=== PATIENT | female | born 1935 | race Caucasian/White ===

== ENCOUNTER → 2017-12-16 13:00 | Outpatient (CLI) | payer MEDICARE, BC, SELFPAY | PROVIDERS: Family Provider Family Medicine; PCP Family Medicine | DX: Z23 Encounter for immunization (principal) | CPT/HCPCS: 90471; 90662 ==

== ENCOUNTER → 2018-01-14 09:23 | Outpatient (CLI) | payer MEDICARE, BC, SELFPAY | PROVIDERS: PCP Family Medicine; Visit Provider Family Medicine | DX: N28.9 Disorder of kidney and ureter, unspecified (principal) ==

== ENCOUNTER → 2018-01-15 08:10 | Outpatient (CLI) | payer MEDICARE, BC, SELFPAY ==
[2018-01-15 10:11] LABS: Alanine Aminotransferase 31 IU/L (9-52); Albumin 4.3 g/dL (3.5-5.0); Albumin Globulin Ratio 1.6 (1.0-2.8); Alkaline Phosphatase 77 U/L (38-126); Aspartate Aminotransferase 32 IU/L (14-36); BUN Creatinine Ratio 21.1 (6-22); Bilirubin Total 0.7 mg/dL (0.2-1.3); Blood Urea Nitrogen 19 mg/dL (7-17); Calcium 9.2 mg/dL (8.4-10.2); Carbon Dioxide 29 mmol/L (22-32); Chloride 104 mmol/L (98-107); Cholesterol 157 mg/dL (140-199); Estimated Glomerular Filt Rate > 60.0 mL/min (>60); Globulin 2.7 g/dL (1.7-4.1); Glucose 93 mg/dL (80-110); HDL Cholesterol 46 mg/dL (40-60); HEMOLYSIS < 15 (0-50); LDL Cholesterol Calculated 95 mg/dL (<100); Sodium 143 mmol/L (137-145); Triglycerides 82 mg/dL (35-150)
== END ==
PROVIDERS: PCP Family Medicine; Visit Provider Family Medicine
DX: N28.9 Disorder of kidney and ureter, unspecified (principal)
CPT/HCPCS: 36415; 80053; 80061

== ENCOUNTER → 2018-03-02 09:07 | Outpatient (CLI) | payer MEDICARE, BC, SELFPAY ==
--- NOTE | 2018-03-02 | DI.MG.S_ITS ---
BILATERAL DIGITAL SCREENING MAMMOGRAM 3D/2D WITH CAD: 03/02/2018 CLINICAL: Routine screening. Family history of breast cancer. Comparison is made to exams dated: 12/28/2016 mammogram, 09/03/2015 mammogram, and 08/21/2014 mammogram - [facility]. There are scattered fibroglandular elements in both breasts. Current study was also evaluated with a Computer Aided Detection (CAD) system. There are benign vascular calcifications in both breasts. No significant masses, calcifications, or other findings are seen in either breast. There has been no significant interval change. IMPRESSION: There is no mammographic evidence of malignancy. A 1 year screening mammogram is recommended. This exam was interpreted at Station ID: [id number]. NOTE: For mammograms, a report in lay terms will be sent to the patient. Approximately 15% of breast malignancies will not be visualized mammographically. In the management of a palpable breast mass, a negative mammogram must not discourage biopsy of a clinically suspicious lesion. Electronically Signed By: Jayne palomino/michaelle:03/02/2018 09:33:48 letter sent: Normal Exam ACR BI-RADS Category 2: Benign Finding(s) 3342F
== END ==
PROVIDERS: PCP Family Medicine; Visit Provider Family Medicine
DX: Z12.31 Encounter for screening mammogram for malignant neoplasm of breast (principal); Z80.3 Family history of malignant neoplasm of breast
CPT/HCPCS: 77063; 77067

== ENCOUNTER → 2018-07-21 07:17 | Outpatient (CLI) | payer MEDICARE, BC, SELFPAY ==
--- NOTE | 2018-07-21 07:19 | DI.RAD.S_ITS ---
PROCEDURE: XR LUMBAR SPINE 2-3V INDICATIONS: Lumbar strain TECHNIQUE: 3 views of the lumbar spine were acquired. COMPARISON: [facility], , L-SPINE 2-3 VIEWS, 10/18/2014, 14:35. FINDINGS: Bones: 5 [id number] vertebrae are present. There is mild levoscoliotic bony alignment centered at L3. No vertebral body compression fractures. No suspicious bony lesions. The degenerative disc disease and facet osteoarthritis is moderately severe from L2 inferiorly, with anterolisthesis grade 1 of L4 again seen on L5. Soft tissues: Overlying bowel gas pattern is normal. No suspicious soft tissue calcifications. 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 This has not appreciably worsened from October 2014, however. Again noted is slight convex leftward scoliosis centered at L3. Dictated by: George Greenberg M.D. on 07/21/2018 at 9:22 Approved by: George Greenberg M.D. on 07/21/2018 at 9:24
[2018-07-21 08:11] LABS: Add Manual Diff / Slide Review NO; Basophils Absolute Auto 100 /uL (0-100); Basophils Percent Auto 1.2 % (0-2); Eosinophils Absolute Auto 300 /uL (0-450); Eosinophils Percent Auto 5.2 % (2-4); Hematocrit 37.3 % (36-46); Hemoglobin 12.1 g/dL (12.0-16.0); Lymphocytes Absolute Auto 1600 /uL (1100-4500); Lymphocytes Percent Auto 31.2 % (25-40); Mean Corpuscular HGB Conc 32.6 % (30-36); Mean Corpuscular Hemoglobin 32.9 PG (26-34); Monocytes Absolute Auto 500 /uL (0-900); Monocytes Percent Auto 10.6 % (3-14); Neutrophils Absolute Auto 2600 /uL (1500-7000); Neutrophils Percent Auto 51.8 % (50-75); Platelet Count 433 X10^3/uL (150-400); Red Blood Cell Count 3.69 X10^6/uL (4.0-5.2)
[2018-07-21 08:15] LABS: Appearance Urine UA CLEAR; Bilirubin Urine UA NEGATIVE (NEGATIVE); Color Urine UA YELLOW; Glucose Urine UA NEGATIVE (Negative); Ketones Urine UA NEGATIVE (NEGATIVE); Leukocyte Esterase Urine UA 1+ (NEGATIVE); Nitrite Urine UA NEGATIVE (Negative); Occult Blood Urine UA NEGATIVE (Negative); Protein Urine UA NEGATIVE (Negative); Specific Gravity Urine UA 1.025 (1.000-1.035); Urobilinogen Urine UA 0.2 E.U./dL (0.2)
[2018-07-21 08:16] LABS: RBC Urine None Seen (0-5/HPF)
[2018-07-21 08:20] LABS: Bacteria Urine Few (2-10); Culture Indicated Urine Cult Not Indicated; Squamous Epithelial Cell Urine 5-10 /HPF (0-5/HPF); WBC Urine 1-5/HPF (0-5/HPF)
[2018-07-21 08:28] LABS: Alanine Aminotransferase 20 IU/L (9-52); Albumin 4.6 g/dL (3.5-5.0); Albumin Globulin Ratio 1.9 (1.0-2.8); Alkaline Phosphatase 68 U/L (38-126); Aspartate Aminotransferase 27 IU/L (14-36); Bilirubin Total 0.6 mg/dL (0.2-1.3); Blood Urea Nitrogen 21 mg/dL (7-17); Calcium 9.1 mg/dL (8.4-10.2); Carbon Dioxide 25 mmol/L (22-32); Chloride 105 mmol/L (98-107); Cholesterol 165 mg/dL (140-199); Estimated Glomerular Filt Rate 53.2 mL/min (>60); Globulin 2.4 g/dL (1.7-4.1); Glucose 97 mg/dL (80-110); HDL Cholesterol 47 mg/dL (40-60); HEMOLYSIS < 15 (0-50); LDL Cholesterol Calculated 100 mg/dL (<100); Potassium 3.9 mmol/L (3.4-5.1); Sodium 141 mmol/L (137-145); Triglycerides 92 mg/dL (35-150)
[2018-07-21 09:55] LABS: Thyroid Stimulating Hormone 0.23 uIU/mL (0.47-4.68)
== END ==
PROVIDERS: PCP Family Medicine; Visit Provider Family Medicine
DX: S39.012A Strain of muscle, fascia and tendon of lower back, initial encounter (principal); M51.36 Other intervertebral disc degeneration, lumbar region; M51.37 Other intervertebral disc degeneration, lumbosacral region; M47.816 Spondylosis without myelopathy or radiculopathy, lumbar region; M47.817 Spondylosis without myelopathy or radiculopathy, lumbosacral region; M43.16 Spondylolisthesis, lumbar region; M41.86 Other forms of scoliosis, lumbar region; E78.5 Hyperlipidemia, unspecified; N18.9 Chronic kidney disease, unspecified; Z51.81 Encounter for therapeutic drug level monitoring
CPT/HCPCS: 36415; 72100; 80053; 80061; 81003; 81015; 84443; 85025

== ENCOUNTER 2018-11-04 13:30 | Outpatient (RCR) | payer MEDICARE, BC, SELFPAY ==
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
--- NOTE | 2018-10-21 15:32 | PT.OPPOC ---
Current Diagnoses Trochanteric bursitis, right hip (10/21/18) Strain of muscle, fascia and tendon of lower back, initial encounter (10/21/18) Provider Visit Care Team Role Provider Type Sally Ruffin DO Attending Provider Physician Primary Care Provider Specialty: Family Practice Address: [address] [place] [address], [id number] Email: [email or web address] Plan Of Care PT-OP-T Assessment and Plan Start: 08/23/18 17:42 Freq: Status: Active Protocol: Document 10/21/18 08:18 LRN (Rec: 10/21/18 09:04 LRN [id number]) Physical Therapy Assessment Goals Four Impairment R LBP hindering reciprocal gait pattern with stair ambulation. Dump Truck Driver Goal (LTG) Pt will be able to ambulate stairs with a reciprocal gait pattern without pain. LTG Duration 12/02/18 (10/21/18: Has had a few days without pain and normal gait) Three Impairment R LBP limiting gait tolerance to short distances. Dump Truck Driver Goal (LTG) Pt will be able to ambulate for long distances (shopping) without onset of R LBP. LTG Duration 12/02/18 Two Impairment R LBP on standing. Dump Truck Driver Goal (LTG) Pt will be able to perform sit to stand without onset of R LBP. LTG Duration 12/02/18 (10/21/18: LBP today resolved post therapy) One Impairment Lacks appropriate self care program. Dump Truck Driver Goal (LTG) Pt will be independent with a self care HEP. LTG Duration 12/02/18 Progressing. Assessment Summary Assessment Much reduced active trigger points at the R ASIS (skin is sensitive to touch). Resolution of pain with pelvic /lumbar normalization of positioning. Pt is having primarily R low back pain that has become recently, intermittent in nature. As she gains greater core stability her back pain is becoming less. 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 Physical Therapy Plan Frequency and Duration Frequency of Treatment 2x/Week Plan of Care Start Date 10/21/18 Plan of Care End Date 12/02/18 Therapeutic Interventions Therapeutic Interventions Gait Training Home Exercise Program Joint Mobilizations Manual Therapy Neuromuscular Re-education Patient/Caregiver Education Self-Care/Home Management Soft Tissue Mobilization Therapeutic Exercises Modalities Cold Pack/Ice Massage Electric Stimulation Hot Packs Ultrasound Next Visit Focus/Plan Next Note Type Treatment Note Next Visit Plan Check R Iliacus, psoas for trP 's and check progress towards goal. Cont manual therapy to release hip AD's/medial hamstrings. Lumbar manual traction to relieve low back & lateral hip pain as needed. Progress Core stabilization and hip strength. Use towel roll in lumbar region in supine with ex's & CP/IFES ( not in areas of basal cell carcinoma of face) if needed. 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 Pt will seek therapy for bilateral hips at the next MD appt. Plan of Care Dates Plan of Care Start Date 10/21/18 Plan of Care End Date 12/02/18 Please Sign and Return: I have reviewed this Plan of Care and certify that the skilled therapy services above are required to meet the patient?s needs. Physician Signature Date Printed Name and Credentials Clinical Instructor Signature Printed Name and Credentials
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
== END 2018-11-09 09:38 | disposition home or self-care (01) ==
LOC: PHYS 13:30
PROVIDERS: PCP Family Medicine; Visit Provider Family Medicine
DX: S39.012A Strain of muscle, fascia and tendon of lower back, initial encounter (principal); M70.61 Trochanteric bursitis, right hip
CPT/HCPCS: 97014; 97032; 97110; 97140; 97162; 97535; G0283

== ENCOUNTER → 2019-01-10 15:17 | Outpatient (CLI) | payer MEDICARE, BC, SELFPAY | PROVIDERS: PCP Family Medicine | DX: Z23 Encounter for immunization (principal) | CPT/HCPCS: 90471; 90662 ==

== ENCOUNTER → 2019-01-11 07:46 | Outpatient (CLI) | payer MEDICARE, BC, SELFPAY ==
[2019-01-11 08:35] LABS: Alanine Aminotransferase 21 IU/L (9-52); Albumin 4.6 g/dL (3.5-5.0); Albumin Globulin Ratio 1.6 (1.0-2.8); Alkaline Phosphatase 71 U/L (38-126); Aspartate Aminotransferase 32 IU/L (14-36); Bilirubin Total 0.9 mg/dL (0.2-1.3); Blood Urea Nitrogen 18 mg/dL (7-17); Calcium 9.6 mg/dL (8.4-10.2); Carbon Dioxide 27 mmol/L (22-32); Chloride 103 mmol/L (98-107); Cholesterol 165 mg/dL (140-199); Estimated Glomerular Filt Rate 59.9 mL/min (>60); Globulin 2.8 g/dL (1.7-4.1); Glucose 105 mg/dL (80-110); HDL Cholesterol 50 mg/dL (40-60); HEMOLYSIS < 15 (0-50); LDL Cholesterol Calculated 94 mg/dL (<100); Potassium 4.6 mmol/L (3.4-5.1); Sodium 141 mmol/L (137-145); Total Protein 7.4 g/dL (6.3-8.2); Triglycerides 104 mg/dL (35-150)
[2019-01-11 08:38] LABS: Add Manual Diff / Slide Review NO; Basophils Absolute Auto 0 /uL (0-100); Basophils Percent Auto 0.7 % (0-2); Eosinophils Absolute Auto 300 /uL (0-450); Eosinophils Percent Auto 4.2 % (2-4); Hematocrit 36.5 % (36-46); Lymphocytes Absolute Auto 1400 /uL (1100-4500); Lymphocytes Percent Auto 20.2 % (25-40); Mean Corpuscular Hemoglobin 33.4 PG (26-34); Mean Corpuscular Volume 101.3 fL (80-100); Monocytes Absolute Auto 600 /uL (0-900); Monocytes Percent Auto 8.4 % (3-14); Neutrophils Absolute Auto 4700 /uL (1500-7000); Neutrophils Percent Auto 66.5 % (50-75); Platelet Count 400 X10^3/uL (150-400); White Blood Cell Count 7.1 X10^3/uL (4.5-11.0)
[2019-01-11 09:07] LABS: Free T3, Triiodothyronine Free 3.17 pg/mL (2.77-5.27); Free T4, Direct Thyroxine 1.36 ng/dL (0.78-2.19)
[2019-01-11 09:22] LABS: Thyroid Stimulating Hormone 0.22 uIU/mL (0.47-4.68)
== END ==
PROVIDERS: PCP Family Medicine; Visit Provider Family Medicine
DX: E78.5 Hyperlipidemia, unspecified (principal); N18.9 Chronic kidney disease, unspecified
CPT/HCPCS: 36415; 80053; 80061; 84439; 84443; 84481; 85025

== ENCOUNTER → 2019-04-12 08:02 | Outpatient (CLI) | payer MEDICARE, BC, SELFPAY ==
--- NOTE | 2019-04-12 | DI.MG.S_ITS ---
BILATERAL DIGITAL SCREENING MAMMOGRAM 3D/2D WITH CAD: 04/12/2019 CLINICAL: Routine screening. Family history of breast cancer. Comparison is made to exams dated: 12/28/2016 mammogram and 09/03/2015 mammogram - [facility]. There are scattered fibroglandular elements in both breasts. Current study was also evaluated with a Computer Aided Detection (CAD) system. There are benign vascular calcifications in both breasts. No significant masses, calcifications, or other findings are seen in either breast. There has been no significant interval change. IMPRESSION: There is no mammographic evidence of malignancy. A 1 year screening mammogram is recommended. This exam was interpreted at Station ID: [id number]. NOTE: For mammograms, a report in lay terms will be sent to the patient. Approximately 15% of breast malignancies will not be visualized mammographically. In the management of a palpable breast mass, a negative mammogram must not discourage biopsy of a clinically suspicious lesion. Electronically Signed By: Adrianen rivers/michaelle:04/12/2019 09:15:43 letter sent: Normal Exam ACR BI-RADS Category 2: Benign Finding(s) 3342F
== END ==
PROVIDERS: PCP Family Medicine; Visit Provider Family Medicine
DX: Z12.31 Encounter for screening mammogram for malignant neoplasm of breast (principal); Z80.3 Family history of malignant neoplasm of breast
CPT/HCPCS: 77063; 77067

== ENCOUNTER → 2019-09-21 13:59 | Outpatient (CLI) | payer MEDICARE, BC, SELFPAY | PROVIDERS: PCP Student in an Organized Health Care Education/Training Program; Referring Provider Student in an Organized Health Care Education/Training Program; Visit Provider Student in an Organized Health Care Education/Training Program | DX: Z13.820 Encounter for screening for osteoporosis (principal); Z78.0 Asymptomatic menopausal state; Z91.89 Other specified personal risk factors, not elsewhere classified | CPT/HCPCS: 77080 ==

== ENCOUNTER → 2019-12-26 07:43 | Outpatient (CLI) | payer MEDICARE, BC, SELFPAY ==
[2019-12-26 09:15] LABS: BUN Creatinine Ratio 24.1 (6-22); Blood Urea Nitrogen 20 mg/dL (7-17); Calcium 9.7 mg/dL (8.4-10.2); Carbon Dioxide 32 mmol/L (22-32); Chloride 102 mmol/L (98-107); Cholesterol 204 mg/dL (140-199); Estimated Glomerular Filt Rate > 60.0 mL/min (>60); Glucose 97 mg/dL (80-110); HDL Cholesterol 58 mg/dL (40-60); HEMOLYSIS < 15 (0-50); LDL Cholesterol Calculated 128 mg/dL (<100); Sodium 139 mmol/L (137-145); Triglycerides 90 mg/dL (35-150)
[2019-12-26 09:18] LABS: Potassium 5.4 mmol/L (3.4-5.1)
[2019-12-26 09:46] LABS: TSH w/ Reflex to FT4 3.34 uIU/mL (0.47-4.68)
== END ==
PROVIDERS: PCP Student in an Organized Health Care Education/Training Program; Referring Provider Student in an Organized Health Care Education/Training Program; Visit Provider Student in an Organized Health Care Education/Training Program
DX: N18.9 Chronic kidney disease, unspecified (principal); E05.90 Thyrotoxicosis, unspecified without thyrotoxic crisis or storm; E78.5 Hyperlipidemia, unspecified; N39.0 Urinary tract infection, site not specified
CPT/HCPCS: 36415; 80048; 80061; 84443

== ENCOUNTER → 2020-05-02 14:14 | Outpatient (CLI) | payer MEDICARE, BC, SELFPAY ==
[2020-05-02] MEDS: COVID-19 VACC #1, MRNA(MOD) 100 MCG/0.5 ML VIAL IM (14:18)
== END ==
PROVIDERS: PCP Student in an Organized Health Care Education/Training Program; Visit Provider Internal Medicine
DX: Z23 Encounter for immunization (principal)
CPT/HCPCS: 0011A; 91301

== ENCOUNTER → 2020-05-30 13:45 | Outpatient (CLI) | payer MEDICARE, BC, SELFPAY ==
[2020-05-30] MEDS: COVID-19 VACC #2, MRNA(MOD) 100 MCG/0.5 ML VIAL IM (13:49)
== END ==
PROVIDERS: PCP Student in an Organized Health Care Education/Training Program; Visit Provider Internal Medicine
DX: Z23 Encounter for immunization (principal)
CPT/HCPCS: 0012A; 91301

== ENCOUNTER → 2021-04-14 08:04 | Outpatient (CLI) | payer MEDICARE, BC, SELFPAY ==
--- NOTE | 2021-04-14 08:06 | DI.MG.S_ITS ---
BILATERAL DIGITAL SCREENING MAMMOGRAM 3D/2D WITH CAD: 04/14/2021 CLINICAL: Routine screening. Family history of breast cancer. Comparison is made to exams dated: 04/12/2019 mammogram, 03/02/2018 mammogram, 12/28/2016 mammogram, 09/03/2015 mammogram, and 08/21/2014 mammogram - [facility]. There are scattered fibroglandular elements in both breasts. Current study was also evaluated with a Computer Aided Detection (CAD) system. There are benign vascular calcifications in both breasts. No significant masses, calcifications, or other findings are seen in either breast. There has been no significant interval change. IMPRESSION: BENIGN There is no mammographic evidence of malignancy. A 1 year screening mammogram is recommended. This exam was interpreted at Station ID: [id number]. NOTE: For mammograms, a report in lay terms will be sent to the patient. Approximately 15% of breast malignancies will not be visualized mammographically. In the management of a palpable breast mass, a negative mammogram must not discourage biopsy of a clinically suspicious lesion. Electronically Signed By: Silvio plasencia/michaelle:04/14/2021 11:00:08 letter sent: Normal Exam ACR BI-RADS Category 2: Benign Finding(s) 3342F
== END ==
PROVIDERS: PCP Student in an Organized Health Care Education/Training Program; Referring Provider Student in an Organized Health Care Education/Training Program; Visit Provider Student in an Organized Health Care Education/Training Program
DX: Z12.31 Encounter for screening mammogram for malignant neoplasm of breast (principal); Z80.3 Family history of malignant neoplasm of breast
CPT/HCPCS: 77063; 77067

== ENCOUNTER → 2021-05-08 07:15 | Outpatient (CLI) | payer MEDICARE, BC, SELFPAY ==
[2021-05-08 09:06] LABS: BUN Creatinine Ratio 19.3 (6-22); Blood Urea Nitrogen 17 mg/dL (7-17); Calcium 9.6 mg/dL (8.4-10.2); Carbon Dioxide 29 mmol/L (22-32); Chloride 104 mmol/L (98-107); Estimated Glomerular Filt Rate > 60.0 mL/min (>60); Glucose 93 mg/dL (80-110); HEMOLYSIS < 15 (0-50); Potassium 4.8 mmol/L (3.4-5.1); Sodium 138 mmol/L (137-145)
== END ==
PROVIDERS: PCP Student in an Organized Health Care Education/Training Program; Referring Provider Student in an Organized Health Care Education/Training Program; Visit Provider Student in an Organized Health Care Education/Training Program
DX: N18.2 Chronic kidney disease, stage 2 (mild) (principal)
CPT/HCPCS: 36415; 80048

== ENCOUNTER → 2021-05-26 10:13 | Outpatient (CLI) | payer MEDICARE, BC, SELFPAY ==
--- NOTE | 2021-05-26 10:14 | DI.RAD.S_ITS ---
PROCEDURE: XR DEXA AXIAL SKELETON INDICATIONS: Osteoporosis screening COMPARISON: None. FINDINGS: This blank DEXA report has been sent in error by the PACS system. The correct and complete report will be forthcoming in 1-2 days. Thank you for your patience and understanding. Dictated by: Mariel Milner MD, PhD on 05/26/2021 at 15:38 Approved by: Mariel Milner MD, PhD on 05/26/2021 at 15:38
== END ==
PROVIDERS: PCP Student in an Organized Health Care Education/Training Program; Referring Provider Student in an Organized Health Care Education/Training Program; Visit Provider Student in an Organized Health Care Education/Training Program
DX: Z78.0 Asymptomatic menopausal state (principal)
CPT/HCPCS: 77080

== ENCOUNTER → 2022-06-24 08:26 | Outpatient (CLI) | payer MEDICARE, BC, SELFPAY ==
--- NOTE | 2022-06-24 | DI.MG.S_ITS ---
BILATERAL DIGITAL SCREENING MAMMOGRAM 3D/2D WITH CAD: 06/24/2022 CLINICAL: Routine screening. Family history of breast cancer. Comparison is made to exams dated: 04/14/2021 mammogram, 04/12/2019 mammogram, and 03/02/2018 mammogram - [facility]. There are scattered areas of fibroglandular density in both breasts (category b / 25%-50% glandular tissue). Current study was also evaluated with a Computer Aided Detection (CAD) system. There are benign vascular calcifications in both breasts. No significant masses, calcifications, or other findings are seen in either breast. There has been no significant interval change. IMPRESSION: BENIGN There is no mammographic evidence of malignancy. A 1 year screening mammogram is recommended. This exam was interpreted at Station ID: [id number]. NOTE: For mammograms, a report in lay terms will be sent to the patient. Approximately 15% of breast malignancies will not be visualized mammographically. In the management of a palpable breast mass, a negative mammogram must not discourage biopsy of a clinically suspicious lesion. Electronically Signed By: Cuauhtemoc lo/michaelle:06/25/2022 11:15:03 letter sent: Normal Exam ACR BI-RADS Category 2: Benign Finding(s) 3342F
== END ==
PROVIDERS: PCP Student in an Organized Health Care Education/Training Program; Referring Provider Student in an Organized Health Care Education/Training Program; Visit Provider Student in an Organized Health Care Education/Training Program
DX: Z12.31 Encounter for screening mammogram for malignant neoplasm of breast (principal); Z80.3 Family history of malignant neoplasm of breast
CPT/HCPCS: 77063; 77067

== ENCOUNTER 2022-08-05 14:48 | Observation (INO) | payer MEDICARE, BC, SELFPAY ==
[2022-08-05] VITALS (13 sets, daily range): BP systolic 168–217; BP diastolic 67–92; PULSE 64–74; RESP 13–27; TEMP 36.1–36.4; O2SAT 96–99; BMI 26.5; BMI 27.3
--- NOTE | 2022-08-05 14:50 | DI.RAD.S_ITS ---
PROCEDURE: XR CHEST 1V INDICATIONS: chest pain TECHNIQUE: One view of the chest was acquired. COMPARISON: [facility], , XR CXR 2 VIEW, 04/16/2005, 11:37. FINDINGS: Surgical changes and devices: None. Lungs and pleura: Lungs are clear. No pleural effusions or pneumothorax. Mediastinum: Mediastinal contours appear normal. Heart size is normal. Bones and chest wall: No suspicious bony lesions. Overlying soft tissues appear unremarkable. IMPRESSION: No acute cardiopulmonary abnormality. Dictated by: Cuauhtemoc Estrada M.D. on 08/05/2022 at 15:44 Approved by: Cuauhtemoc Estrada M.D. on 08/05/2022 at 15:48
[2022-08-05 15:22] LABS: Add Manual Diff / Slide Review NO; Basophils Absolute Auto 100 /uL (0-100); Eosinophils Absolute Auto 200 /uL (0-450); Eosinophils Percent Auto 2.7 % (2-4); Hematocrit 33.1 % (36-46); Hemoglobin 11.3 g/dL (12.0-16.0); Lymphocytes Absolute Auto 2400 /uL (1100-4500); Lymphocytes Percent Auto 32.9 % (25-40); Mean Corpuscular HGB Conc 34.1 % (30-36); Mean Corpuscular Hemoglobin 34.9 PG (26-34); Mean Corpuscular Volume 102.3 fL (80-100); Monocytes Absolute Auto 700 /uL (0-900); Monocytes Percent Auto 8.9 % (3-14); Neutrophils Absolute Auto 4000 /uL (1500-7000); Neutrophils Percent Auto 53.5 % (50-75); Platelet Count 358 X10^3/uL (150-400); Red Blood Cell Count 3.24 X10^6/uL (4.0-5.2); Red Cell Distribution Width 21.4 % (11.6-14.8); White Blood Cell Count 7.4 X10^3/uL (4.5-11.0)
[2022-08-05 15:23] LABS: Prothrombin Time 11.6 SECONDS (10.1-12.7)
[2022-08-05 15:26] LABS: PTT Partial Thromboplastin Tim 35 SECONDS (26-36)
[2022-08-05 15:29] LABS: Alanine Aminotransferase 19 IU/L (<35); Albumin 4.6 g/dL (3.5-5.0); Albumin Globulin Ratio 1.7 (1.0-2.8); Alkaline Phosphatase 79 U/L (38-126); Aspartate Aminotransferase 30 IU/L (14-36); BUN Creatinine Ratio 20.6 (6-22); Blood Urea Nitrogen 20 mg/dL (7-17); Calcium 8.7 mg/dL (8.4-10.2); Carbon Dioxide 26 mmol/L (22-32); Chloride 103 mmol/L (98-107); Creatine Kinase 84 U/L (30-135); Estimated Glomerular Filt Rate 57 mL/min (>60); Globulin 2.7 g/dL (1.7-4.1); Glucose 97 mg/dL (80-110); HEMOLYSIS < 15 (0-50); Lipase 51 U/L (23-300); Sodium 138 mmol/L (137-145); Total Protein 7.3 g/dL (6.3-8.2)
[2022-08-05] MEDS: ASPIRIN 81 MG CHEW TAB 324 MG PO (15:29)
[2022-08-05 15:41] LABS: Troponin I < 0.012 ng/mL (0.01-0.034)
[2022-08-05 15:47] LABS: Macrocytosis 1+
[2022-08-05 15:50] LABS: Schistocytes 1+
[2022-08-05 15:53] LABS: Anisocytosis 2+
--- NOTE | 2022-08-05 16:11 | ED.CHESTPAIN ---
HPI - Chest Pain General Chief Complaint: Chest Pain Stated Complaint: Chest pain Time Seen by Provider: 08/05/22 15:26 Source: patient Mode of arrival: Ambulatory Limitations: no limitations History of Present Illness HPI narrative: Age 6-year-old female patient with a history of lipidemia presents to the ER with chest pain. She is experienced 4-5 episodes of brief chest pain over the past month, generally arrest. She was experiencing pain in left anterior chest, general resolving within about 10 minutes. There is no radiation of pain, no dyspnea. Today she experienced 3 separate episodes of chest pain. The 1st 2 episodes were about 10 minute duration and quickly resolved. The 3rd episode occurred when she was moderately active. This time the pain was more severe, and radiate across her chest. There is still no concerns or dyspnea or diaphoresis. Symptoms resolving upon arrival to the ER. She is asymptomatic at the time I saw her. Aspirin was given after arrival. She is no history of hypertension, diabetes, or known CAD. She is no history of arrhythmia. She denies recent illness. She is had no URI symptoms cough or congestion. Related Data Home Medications Medication Instructions Recorded Confirmed vitamin B complex (B 1 tab PO DAILY ##0 02/01/12 08/05/22 Complex-Vitamin B12 tablet) cholecalciferol (vitamin D3) 50 2,000 unit PO DAILY 07/20/18 08/05/22 mcg (2,000 unit) capsule d-mannose 500 mg capsule 500 mg PO DAILY 05/06/21 08/05/22 Previous Rx's Medication Instructions Recorded sulfamethoxazole 800 1 tab PO BID #10 tabs 05/28/22 mg-trimethoprim 160 mg tablet (Bactrim DS) Allergies Allergy/AdvReac Type Severity Reaction Status Date / Time codeine AdvReac Mild NAUSEA Verified 06/25/22 11:34 Review of Systems Constitutional Constitutional: Denies body ache(s), Denies fever(s) and Denies headache(s) Eyes Eyes: Denies change in vision ENT Ears, Nose, Mouth, and Throat: Denies vertigo, Denies dizziness, Denies headache(s), Denies sinus pain, Denies sinus pressure and Denies sore throat Cardiovascular Cardiovascular: Reports as per HPI, Denies syncope and Denies dyspnea Respiratory Respiratory: Denies chest congestion, Denies cough and Denies dyspnea Musculoskeletal Comments: No back pain, no lower extremity edema. Integumentary/Breasts Skin/Breast: Denies new lesions and Denies rash Neurologic Neurologic: Denies confusion, Denies vertigo, Denies dizziness, Denies syncope and Denies headache(s) Psychiatric Psychiatric: Denies confusion Hematologic/Lymphatic On Anticoagulants: No Patient History Medical History Actinic keratosis Allergic rhinitis Arthritis Basal cell carcinoma Colon polyps Hearing loss (04/2014) Hyperlipidemia Recurrent UTI (urinary tract infection) Subclinical hyperthyroidism Surgical History History of bilateral salpingo-oophorectomy (BSO) History of cataract removal with insertion of prosthetic lens History of tonsillectomy Hx of bladder repair surgery Status post cholecystectomy Status post hysterectomy Family History Father Bladder cancer CAD (coronary artery disease) Mother Dementia Stroke Hypertension Social History household members: spouse Smoking Status: Never smoker alcohol intake: never Smoking Status: Never smoker Substance Use Type: does not use Exam Initial Vital Signs Initial Vital Signs: Vital Signs Pulse Rate 74 08/05/22 14:54 Respiratory Rate 18 08/05/22 14:54 Blood Pressure 195/79 H 08/05/22 14:54 Pulse Oximetry 99 08/05/22 14:54 Oxygen Delivery Method Room Air 08/05/22 14:54 Const General: cooperative, healthy appearing and comfortable [facility] Head: normocephalic and atraumatic Face and sinus: normal facial exam Throat: posterior oropharynx normal Eyes General: Yes appearance normal, both eyes and all related structures Neck Neck: normal visual inspection, full ROM and No tender Chest Chest: normal inspection of the chest, No tenderness and other Resp Effort & Inspection: normal respiratory effort Auscultation: clear to auscultation bilaterally Cardio Palpation: normal PMI Rhythm: regular rhythm Heart Sounds: S1 normal, S2 normal and no murmurs GI Inspection: normal to inspection Back/Spine/Pelvis Back: normal to inspection and No CVA tenderness Skin General: no rashes or lesions noted Neuro General: patient alert, patient awake, patient oriented x3 and no focal motor deficits Extrem General: normal to inspection, no pedal edema and no calf tenderness Scores HEART Score Heart Score history: Moderately Suspicious Heart Score EKG: Normal Heart Score Age: > or = 65 years old Heart Score risk factors: 1-2 risk factors Heart Score troponin: < or = to normal limit Heart Score Total: 4 Course Course Course Narrative: Patient has a heart score of 4. I am concerned that her symptoms represent crescendo angina. I discussed the situation briefly with a PCM, Dr. Murdock. He felt that he could not assure a nuclear stress test within a week. Patient has a normal chest x-ray, her EKG is normal. Troponin has been normal x2. Her blood pressure is 160s, elevated. She is not on blood pressure medications. She is a history of hyperlipidemia, she is not currently taking medications. I contacted Dr. Reeves, hospitalist. He is agreed to admit the patient for ongoing evaluation of the chest discomfort. Orders Ordered: ED Orders 08/05/22 14:50 XR chest 1V Stat COVID19 -Nasal RAPID Stat 08/05/22 15:00 Complete Blood Count AUTO DIFF Stat Comprehensive Metabolic Panel Stat Lipase Stat Magnesium Stat PTT Partial Thromboplastin Liu Stat Prothrombin Time INR Stat Troponin & CK Cardiac Panel Stat 08/05/22 16:30 Trop I [Troponin I] Stat Acetaminophen (Acetaminophen 325 Mg Tablet) 650 mg PO Q6H PRN PRN Reason: Fever/Mild Pain (1-3) Aspirin (Aspirin Ec 81 Mg Tablet) 81 mg PO DAILY ALEXANDRA Atorvastatin Calcium (Atorvastatin 20 Mg Tablet) 40 mg PO BEDTIME ALEXANDRA Naloxone HCl (Naloxone 0.4 Mg/Ml Vial) 0.2 mg IV Q2MIN PRN PRN Reason: Opiate Reversal Ondansetron HCl (Ondansetron 4 Mg Odt) 4 mg PO Q8HR PRN PRN Reason: Nausea And Vomiting Discontinued Medications Aspirin (Aspirin 81 Mg Chew Tab) 324 mg PO NOW ONE Stop: 08/05/22 14:51 Last Admin: 08/05/22 15:29 Dose: 324 mg Documented By: PANCHO Vital Signs Vital signs: Vital Signs - 8 hr 08/05/22 14:54 08/05/22 14:57 08/05/22 14:58 Pulse Rate 74 72 70 Respiratory Rate 18 27 H 20 Blood Pressure 195/79 H Pulse Oximetry 99 97 98 Oxygen Delivery Method Room Air 08/05/22 14:58 08/05/22 15:00 08/05/22 15:30 Pulse Rate 71 68 Respiratory Rate 22 26 H Blood Pressure 187/78 H Pulse Oximetry 97 98 Oxygen Delivery Method 08/05/22 16:00 08/05/22 16:00 08/05/22 16:30 Pulse Rate 71 Respiratory Rate 13 Blood Pressure 199/92 H 208/87 H Pulse Oximetry 98 Oxygen Delivery Method 08/05/22 16:30 08/05/22 16:45 08/05/22 16:45 Pulse Rate 65 69 Respiratory Rate 20 18 Blood Pressure 217/91 H Pulse Oximetry 96 97 Oxygen Delivery Method 08/05/22 17:00 08/05/22 17:00 Pulse Rate 64 Respiratory Rate 16 Blood Pressure 194/84 H Pulse Oximetry 97 Oxygen Delivery Method Room Air MDM - Chest Pain Lab Data 08/05/22 15:00 08/05/22 15:00 Labs: Lab Results 08/05/22 08/05/22 08/05/22 Range/Units 14:50 15:00 15:00 WBC 7.4 (4.5-11.0) X10^3/uL RBC 3.24 L (4.0-5.2) X10^6/uL Hgb 11.3 L (12.0-16.0) g/dL Hct 33.1 L (36-46) % MCV 102.3 H (80-100) fL MCH 34.9 H (26-34) PG MCHC 34.1 (30-36) % RDW 21.4 H (11.6-14.8) % Plt Count 358 (150-400) X10^3/uL Neut % (Auto) 53.5 (50-75) % Lymph % (Auto) 32.9 (25-40) % [place] % (Auto) 8.9 (3-14) % Eos % (Auto) 2.7 (2-4) % Baso % (Auto) 2.0 (0-2) % Neut # (Auto) 4000 (4656-8327) /uL Lymph # (Auto) 2400 (7718-1464) /uL [place] # (Auto) 700 (0-900) /uL Eos # (Auto) 200 (0-450) /uL Baso # (Auto) 100 (0-100) /uL RBC Morphology See below Anisocytosis 2+ H Macrocytosis 1+ H Schistocytes 1+ H PT 11.6 (10.1-12.7) SECONDS INR 1.0 (0.9-1.3) APTT 35 (26-36) SECONDS Sodium (137-145) mmol/L Potassium (3.4-5.1) mmol/L Chloride (98-107) mmol/L Carbon Dioxide (22-32) mmol/L BUN (7-17) mg/dL Creatinine (0.52-1.04) mg/dL Estimated GFR (>60) mL/min BUN/Creatinine Ratio (6-22) Glucose (80-110) mg/dL Calcium (8.4-10.2) mg/dL Magnesium (1.6-2.3) mg/dL Total Bilirubin (0.2-1.3) mg/dL AST (14-36) IU/L ALT (<35) IU/L Alkaline Phosphatase (38-126) U/L Total Creatine Kinase (30-135) U/L CK-MB (CK-2) CK-MB (CK-2) Rel Index Troponin I (0.01-0.034) ng/mL Total Protein (6.3-8.2) g/dL Albumin (3.5-5.0) g/dL Globulin (1.7-4.1) g/dL Albumin/Globulin Ratio (1.0-2.8) Lipase (23-300) U/L Urine RBC (0-5/HPF) Urine WBC (0-5/HPF) Ur Squamous Epith Cells (0-5/HPF) Urine Bacteria (None) Ur Culture Indicated? SARS-CoV-2 (PCR) Negative (Negative) 08/05/22 08/05/22 08/05/22 Range/Units 15:00 16:30 17:15 WBC (4.5-11.0) X10^3/uL RBC (4.0-5.2) X10^6/uL Hgb (12.0-16.0) g/dL Hct (36-46) % MCV (80-100) fL MCH (26-34) PG MCHC (30-36) % RDW (11.6-14.8) % Plt Count (150-400) X10^3/uL Neut % (Auto) (50-75) % Lymph % (Auto) (25-40) % [place] % (Auto) (3-14) % Eos % (Auto) (2-4) % Baso % (Auto) (0-2) % Neut # (Auto) (6273-2308) /uL Lymph # (Auto) (7091-4300) /uL [place] # (Auto) (0-900) /uL Eos # (Auto) (0-450) /uL Baso # (Auto) (0-100) /uL RBC Morphology Anisocytosis Macrocytosis Schistocytes PT (10.1-12.7) SECONDS INR (0.9-1.3) APTT (26-36) SECONDS Sodium 138 (137-145) mmol/L Potassium 4.0 (3.4-5.1) mmol/L Chloride 103 (98-107) mmol/L Carbon Dioxide 26 (22-32) mmol/L BUN 20 H (7-17) mg/dL Creatinine 0.97 (0.52-1.04) mg/dL Estimated GFR 57 L (>60) mL/min BUN/Creatinine Ratio 20.6 (6-22) Glucose 97 (80-110) mg/dL Calcium 8.7 (8.4-10.2) mg/dL Magnesium 2.0 (1.6-2.3) mg/dL Total Bilirubin 1.0 (0.2-1.3) mg/dL AST 30 (14-36) IU/L ALT 19 (<35) IU/L Alkaline Phosphatase 79 (38-126) U/L Total Creatine Kinase 84 (30-135) U/L CK-MB (CK-2) TNP CK-MB (CK-2) Rel Index TNP Troponin I < 0.012 < 0.012 (0.01-0.034) ng/mL Total Protein 7.3 (6.3-8.2) g/dL Albumin 4.6 (3.5-5.0) g/dL Globulin 2.7 (1.7-4.1) g/dL Albumin/Globulin Ratio 1.7 (1.0-2.8) Lipase 51 (23-300) U/L Urine RBC 1-5/hpf (0-5/HPF) Urine WBC 5-10/hpf H (0-5/HPF) Ur Squamous Epith Cells 1-5 /hpf (0-5/HPF) Urine Bacteria Many (>30) H (None) Ur Culture Indicated? Specimen cultured SARS-CoV-2 (PCR) (Negative) Urine Dip Bedside Urine Glucose Negative Bedside Urine Bilirubin - Negative Bedside Urine Ketone - Negative Urine Specific [place] 1.020 Bedside Urine Occult Blood - Negative Bedside Urine pH 5.5 Bedside Urine Protein - Negative Bedside Urine Urobilinogen - Negative Bedside Urine Nitrite - Negative Bedside Urine Leukocytes + 70 Esterase Imaging Data Chest x-ray: Radiologist's Impression: No acute findings. ECG Data Attestation: I personally reviewed and interpreted this ECG as follows: (Normal sinus rhythm rate 91 beats per minute. Normal intervals. No ectopy. No acute ST T wave changes.) Critical Care Time Critical Care Time Critical Care Time: Yes Total Critical Care Time: 50 Attestation: Time included initial patient assessment, evaluation of Radiology, EKG and lab data. The patient was informed the situation. Multiple calls were necessary to arrange the final disposition. The case was discussed with the admitting hospitalist in detail. Discharge Plan Departure Patient Disposition: Admitted as Observation Clinical Impression: Chest pain, Unstable angina, Hyperlipidemia, Hypertension Admit Date/Time: 08/05/22 17:20 Admit Provider: Burke Reeves
[2022-08-05 16:32] LABS: COVID19 -Nasal RAPID Negative (Negative)
[2022-08-05 17:06] LABS: Troponin I < 0.012 ng/mL (0.01-0.034)
--- NOTE | 2022-08-05 17:24 | P.HP_ITS ---
History of Present Illness History of Present Illness Date Patient Seen: 08/05/22 Time Patient Seen: 17:24 Chief complaint: Chest pain Narrative: 86 year old female with PMH of HLD not currently on any medications who presents to the emergency room today for chest pain. She has had 4-5 episodes over the last month, worst episode was today lasting about 90 minutes while cooking dinner. The chest pain feels like a band with pressure over her entire chest,left and right, without radiation into her arm or neck. She denies recent or associated palpitations, shortness of breath, diaphoresis, orthopnea, LE edema. She has had no fever nor chills. She denies any palliating or provoking factors, and has not tried any medications to relieve this pain. She denies spe cifically exertional type chest pain. Previous episodes have lasted around 5-10 minutes and maybe have been increasing in frequency over the month but she is not entirely sure. Initial EKG showed NSR, and CXR was unremarkable. She was hypertensive but the remainder of her vitals were unremarkable and laboratory evaluation was additionally unremarkable with 2x normal troponins. Her HEART score is 4. She was admitted for further risk stratification of her chest pain. [facility] Medical History Actinic keratosis Allergic rhinitis Arthritis Basal cell carcinoma Colon polyps Hearing loss (04/2014) Hyperlipidemia Recurrent UTI (urinary tract infection) Subclinical hyperthyroidism Surgical History History of bilateral salpingo-oophorectomy (BSO) History of cataract removal with insertion of prosthetic lens History of tonsillectomy Hx of bladder repair surgery Status post cholecystectomy Status post hysterectomy Family History Father Bladder cancer CAD (coronary artery disease) Mother Dementia Stroke Hypertension Social History Smoking Status: Never smoker alcohol intake: never Meds Home Medications and Allergies Home Medications Medication Instructions Recorded Confirmed Type [VITAMIN B12] 1,000 mg PO Q DAY ##0 02/01/12 06/25/22 History cholecalciferol (vitamin D3) 50 2,000 unit PO DAILY 07/20/18 06/25/22 History mcg (2,000 unit) capsule d-mannose 500 mg capsule mg PO 05/06/21 06/25/22 History sulfamethoxazole 800 1 tab PO BID #10 tabs 05/28/22 06/25/22 Rx mg-trimethoprim 160 mg tablet (Bactrim DS) Allergies Allergy/AdvReac Type Severity Reaction Status Date / Time codeine AdvReac Mild NAUSEA Verified 06/25/22 11:34 Review of Systems Review of Systems Narrative: All other systems reviewed with the patient and are negative unless otherwise stated. Exam Vital Signs (past 8 hours): - 08/05/22 14:54 08/05/22 14:57 08/05/22 14:58 Pulse Rate 74 72 70 Respiratory Rate 18 27 H 20 Blood Pressure 195/79 H Pulse Oximetry 99 97 98 Oxygen Delivery Method Room Air 08/05/22 14:58 08/05/22 15:00 08/05/22 15:30 Pulse Rate 71 68 Respiratory Rate 22 26 H Blood Pressure 187/78 H Pulse Oximetry 97 98 Oxygen Delivery Method 08/05/22 16:00 08/05/22 16:00 08/05/22 16:30 Pulse Rate 71 Respiratory Rate 13 Blood Pressure 199/92 H 208/87 H Pulse Oximetry 98 Oxygen Delivery Method 08/05/22 16:30 08/05/22 16:45 08/05/22 16:45 Pulse Rate 65 69 Respiratory Rate 20 18 Blood Pressure 217/91 H Pulse Oximetry 96 97 Oxygen Delivery Method 08/05/22 17:00 08/05/22 17:00 Pulse Rate 64 Respiratory Rate 16 Blood Pressure 194/84 H Pulse Oximetry 97 Oxygen Delivery Method Room Air Oxygen Delivery Method Room Air Narrative Exam Narrative: General:? Patient is well developed and well nourished, in no distress at this time. HEENT:? Normocephalic, atraumatic, extraocular muscles intact, oral pharynx is clear and mucous membranes are moist. Neck: supple and symmetric, trachea is midline, no cervical adenopathy. Negative for JVD Chest:? Normal AP diameter and contour without kyphoscoliosis, no tachypnea, equal chest rise bilaterally. Lungs:? CTA b/l no wheezing rhonchi or rales. Cardio:?RRR no m/r/g. Abdomen: S NT ND. No CVA tenderness. Musculoskeletal:? Muscle strength and tone are equal within normal limits, no deformity. Extremities: No edema or joint effusions. No cyanosis or clubbing. Skin:? Pale,? Warm to touch,dry and intact without rashes, ulcerations or petechiae.? Neuro:? Alert and orientated x3,? sensation to touch intact in all extremities, no gross deficits noted of cranial nerves. Psych:? Patient has a well-kept appearance, appropriate affect, mental status attitude thought context and judgment are appropriate for age. Objective ECG Impression: Normal sinus rhythm without evidence of acute ischemia as interpreted by me Labs 08/05/22 15:00 08/05/22 15:00 Labs: Laboratory Results - last 24 hr 08/05/22 08/05/22 08/05/22 14:50 15:00 15:00 WBC 7.4 RBC 3.24 L Hgb 11.3 L Hct 33.1 L MCV 102.3 H MCH 34.9 H MCHC 34.1 RDW 21.4 H Plt Count 358 Neut % (Auto) 53.5 Lymph % (Auto) 32.9 [place] % (Auto) 8.9 Eos % (Auto) 2.7 Baso % (Auto) 2.0 Neut # (Auto) 4000 Lymph # (Auto) 2400 [place] # (Auto) 700 Eos # (Auto) 200 Baso # (Auto) 100 RBC Morphology See below Anisocytosis 2+ H Macrocytosis 1+ H Schistocytes 1+ H PT 11.6 INR 1.0 APTT 35 Sodium Potassium Chloride Carbon Dioxide BUN Creatinine Estimated GFR BUN/Creatinine Ratio Glucose Calcium Magnesium Total Bilirubin AST ALT Alkaline Phosphatase Total Creatine Kinase CK-MB (CK-2) CK-MB (CK-2) Rel Index Troponin I Total Protein Albumin Globulin Albumin/Globulin Ratio Lipase SARS-CoV-2 (PCR) Negative 08/05/22 08/05/22 15:00 16:30 WBC RBC Hgb Hct MCV MCH MCHC RDW Plt Count Neut % (Auto) Lymph % (Auto) [place] % (Auto) Eos % (Auto) Baso % (Auto) Neut # (Auto) Lymph # (Auto) [place] # (Auto) Eos # (Auto) Baso # (Auto) RBC Morphology Anisocytosis Macrocytosis Schistocytes PT INR APTT Sodium 138 Potassium 4.0 Chloride 103 Carbon Dioxide 26 BUN 20 H Creatinine 0.97 Estimated GFR 57 L BUN/Creatinine Ratio 20.6 Glucose 97 Calcium 8.7 Magnesium 2.0 Total Bilirubin 1.0 AST 30 ALT 19 Alkaline Phosphatase 79 Total Creatine Kinase 84 CK-MB (CK-2) TNP CK-MB (CK-2) Rel Index TNP Troponin I < 0.012 < 0.012 Total Protein 7.3 Albumin 4.6 Globulin 2.7 Albumin/Globulin Ratio 1.7 Lipase 51 SARS-CoV-2 (PCR) Assessment & Plan Assessment & Plan narrative: 1. chest pain - - HEART score of 4, or intermediate risk. Will further risk stratify with stress testing. With normal EKG and patient ambulatory, will proceed with non- nuclear treadmill stress testing. - will check an 8 hour troponin given symptoms started just prior to admission to rule out ACS. First two were negative. - will watch blood pressure, as she is asymptomatic currently and BP have been controlled in PCP office but may need to start antihypertensives if persistently elevated. - further risk stratify with A1c, TSH, lipids 2. Hypertensive urgency - Patient does not have a history of HTN, and states her BP is usually within normal limits at home. - will continue to monitor, if persistently elevated or develops chest pain or other equivalent symptoms will start antihypertensive therapy. 3. HLD - no longer on medications, will check lipid panel for further risk stratification. Code: Full, surrogate is patient's DVT: low risk, patient ambulatory, not indicated Dispo: Admit observation, probable discharge home if stress testing low risk. I have utilized all available immediate resources to obtain, update, or review the patient's current medications. Additional history was obtained from the ER provider, spouse at bedside. Discussed with patient and family at bedside. We discussed possible discharge home or observation with her presentation and the risks and benefits of each, patient elected for observation admission and stress testing tomorrow. I have personally reviewed patient's previous PCP documentation, EKG, and chest xray from today. COVID-19 COVID-19 status: Negative Quality MIPS - Admit I confirm the patient?s Advance Care Plan is present, Code status is documented, Surrogate decision maker is in patient?s record [If Yes, STOP here]: Yes
--- NOTE | 2022-08-05 18:04 | PC.NURSE ---
Admit Note Pt to room 215 from ER at 1745 via wheelchair. SBA to bed. Alert and oriented x3. Denies any chest pain at this time, instructed to notify nursing staff if this changes. RA with SpO2 of 98%. Telemetry placed on pt. Daughter Anastasiya) in room. Oriented to room and to bed/tv/call light controls, acknowledged understanding and call light placed within reach. Declines to lock up any valuables, wallet going home with daughter. Glasses in place, watch and two rings (one with white stone), cell phone, clothing and shoes remaining in room or on patient. NPO at midnight for stress test, pt aware.
[2022-08-05 18:19] LABS: Bacteria Urine Many (>30); Culture Indicated Urine Specimen Cultured; RBC Urine 1-5/HPF (0-5/HPF); Squamous Epithelial Cell Urine 1-5 /HPF (0-5/HPF); WBC Urine 5-10/HPF (0-5/HPF)
[2022-08-05] MEDS: ATORVASTATIN 20 MG TABLET 40 MG PO (20:49)
[2022-08-05 23:18] LABS: Troponin I < 0.012 ng/mL (0.01-0.034)
[2022-08-06] VITALS (10 sets, daily range): BP systolic 156–190; BP diastolic 54–71; PULSE 59–77; RESP 17–18; TEMP 36.1–36.3; O2SAT 96–98
[2022-08-06 06:55] LABS: Add Manual Diff / Slide Review NO; Basophils Absolute Auto 100 /uL (0-100); Basophils Percent Auto 1.7 % (0-2); Eosinophils Absolute Auto 200 /uL (0-450); Eosinophils Percent Auto 4.6 % (2-4); Hematocrit 34.8 % (36-46); Hemoglobin 11.7 g/dL (12.0-16.0); Lymphocytes Absolute Auto 1400 /uL (1100-4500); Lymphocytes Percent Auto 30.1 % (25-40); Mean Corpuscular HGB Conc 33.5 % (30-36); Mean Corpuscular Hemoglobin 34.4 PG (26-34); Mean Corpuscular Volume 102.6 fL (80-100); Monocytes Absolute Auto 600 /uL (0-900); Monocytes Percent Auto 12.9 % (3-14); Neutrophils Absolute Auto 2300 /uL (1500-7000); Neutrophils Percent Auto 50.7 % (50-75); Platelet Count 347 X10^3/uL (150-400); White Blood Cell Count 4.5 X10^3/uL (4.5-11.0)
[2022-08-06 06:59] LABS: BUN Creatinine Ratio 20.9 (6-22); Blood Urea Nitrogen 18 mg/dL (7-17); Calcium 8.8 mg/dL (8.4-10.2); Carbon Dioxide 26 mmol/L (22-32); Chloride 105 mmol/L (98-107); Cholesterol 224 mg/dL (140-199); Estimated Glomerular Filt Rate > 60 mL/min (>60); Glucose 91 mg/dL (80-110); HDL Cholesterol 63 mg/dL (40-60); HEMOLYSIS < 15 (0-50); LDL Cholesterol Calculated 139 mg/dL (<100); Magnesium 2.2 mg/dL (1.6-2.3); Potassium 3.9 mmol/L (3.4-5.1); Sodium 139 mmol/L (137-145); Triglycerides 112 mg/dL (35-150)
[2022-08-06 07:12] LABS: Anisocytosis 1+; Macrocytosis 1+
[2022-08-06 07:33] LABS: TSH w/ Reflex to FT4 1.06 uIU/mL (0.47-4.68)
--- NOTE | 2022-08-06 07:53 | PC.NURSE ---
Day shift: Dr Fajardo made aware Pt's BP this AM 190/70. Pt denies any chest pain or headache at this time (0750).
--- NOTE | 2022-08-06 08:04 | DI.NM.S_ITS ---
PROCEDURE: NM LISA PERF SPECT REST & STR Rest and exercise myocardial perfusion SPECT with gated imaging and ejection fraction RADIOPHARMACEUTICAL: 9.7mCi Tc-99m sestamibi IV at rest and 27.1mCi Tc-99m sestamibi IV at peak exercise. A one day-protocol was performed. INDICATIONS: chest pain TECHNIQUE: Radiopharmaceutical was injected at peak stress test, and also at rest. SPECT images were obtained. SPECT myocardial perfusion images were displayed in short axis, horizontal long axis, and vertical long axis views. Gated images were reviewed using rVita software. COMPARISON: None. CARDIAC STRESS: A standard [place] treadmill exercise tolerance test was performed by the patient under the supervision of an attending staff. The patient exercised for 5 minutes and 1 seconds; functional aerobic impairment (JR) is -17%. Hemodynamic data: There is normal blood pressure and heart rate response to exercise stress. Patient achieved 104% of maximum predicted heart rate at peak exercise. Symptoms: Patient denied chest pain during exercise. EKG: No diagnostic EKG changes of ischemia; no ectopy. FINDINGS: Raw data: There is good myocardial labeling by radiotracer. No significant motion artifacts. Qxtr-ei-wtcse ratio is 0.33 (normal is less than 0.38 for sestamibi tracer, and less than 0.50 for thallium tracer). Left ventricle function: Gated images demonstrate normal left ventricle wall thickening. No segmental wall motion abnormality. No transient ischemic dilation; TID is 1.13 (normal less than 1.3). The left ventricle post stress end-diastolic volume is 51 mL. Left ventricle stress ejection fraction is 96%; normal values are above 45%. Myocardial perfusion: There is normal distribution of activity in the left and right ventricular myocardium on stress prone imaging. No fixed or reversible perfusion defects. IMPRESSION: Low risk, normal treadmill nuclear stress test 1) No perfusion evidence of ischemia or infarction. 2) Normal left ventricular size, wall motion, and systolic function (EF post stress 96%). 3) No ST changes with exercise. 4) No angina during the study. 5) Good exercise tolerance (JR -17%). Target heart rate achieved. Appropriate BP response to exercise. 6) No prior nuclear stress test available for comparison. Dictated by: Bernadette Mclaughlin MD on 08/06/2022 at 15:58 Approved by: Bernadette Mclaughlin MD on 08/06/2022 at 16:01
[2022-08-06] MEDS: LOSARTAN 25 MG TABLET PO (08:22)
[2022-08-06] MEDS: ASPIRIN EC 81 MG TABLET PO (08:26)
--- NOTE | 2022-08-06 10:24 | CM.DANOTE ---
Initial DCP Assessment Note Pt is an 86 yo female, resident of [place], arrives with chest pain; sx had resolved by the time patient arrived to the acute care floor. Patient indp and active and otherwise healthy, ambulating in room. Scheduled for stress test today- possibly home after depending on results PCP: Brett Chairez Payer: [facility] Reviewed chart, pt discussed in multidisciplinary rounds this morning. Patient expected to discharge today after stress test No barriers identified at this time to patient's safe discharge home w/family to assist as needed; close outpatient f/u recommended. VANESSA Gibbons Discharge Planning/Care Management CM Discharge Assessment Start: 08/06/22 09:32 Freq: Status: Active Protocol: Document 08/06/22 09:32 REY (Rec: 08/06/22 09:34 REY [email or web address]) Discharge Planning Assessment Assigned Digital Advisor VANESSA Whitley DPOA/Assigned Designee Name Hipolito nitish Lopez (Bud) Contact Information [phone], Advance Directives? No History Provided By Medical Record Prior Living Arrangements House Household Members spouse Type of transporation used prior to Relies on Others admit Independent with ADL's Yes Is patient alert and oriented? Yes Barriers to Discharge No Comment Home w/spouse and close outpatient follow up expected Discharge Plan Home Referrals Initiated None needed Additional Comment Following in case any DC needs arise
--- NOTE | 2022-08-06 11:32 | PC.NURSE ---
Day shift: Pt off unit for stress test at approx 1100.
--- NOTE | 2022-08-06 16:17 | P.DS_ITS ---
History of Present Illness History of Present Illness Date Patient Seen: 08/05/22 Time Patient Seen: 17:24 Chief complaint: Chest pain Narrative: 86 year old female with PMH of HLD not currently on any medications who presents to the emergency room today for chest pain. She has had 4-5 episodes over the last month, worst episode was today lasting about 90 minutes while cooking dinner. The chest pain feels like a band with pressure over her entire chest,left and right, without radiation into her arm or neck. She denies recent or associated palpitations, shortness of breath, diaphoresis, orthopnea, LE edema. She has had no fever nor chills. She denies any palliating or provoking factors, and has not tried any medications to relieve this pain. She denies spe cifically exertional type chest pain. Previous episodes have lasted around 5-10 minutes and maybe have been increasing in frequency over the month but she is not entirely sure. Initial EKG showed NSR, and CXR was unremarkable. She was hypertensive but the remainder of her vitals were unremarkable and laboratory evaluation was additionally unremarkable with 2x normal troponins. Her HEART score is 4. She was admitted for further risk stratification of her chest pain. Discharge Providers Provider Date of admission: 08/05/22 17:20 Discharge Date: 08/06/22 Primary care physician: Brett Chairez MD Discharge provider: Lito Fajardo, Summary Hospital Course Discharge Diagnosis: 1. chest pain ?- HEART score of 4, or intermediate risk. Will further risk stratify with s tress testing. With normal EKG. ?- trops neg x3 - nuclear stress normal with good LV function ?- will watch blood pressure, as she is asymptomatic currently and BP have been controlled in PCP office but may need to start antihypertensives if persistently elevated. ?- further risk stratify with A1c which is pending, TSH normal, LDL 139, total chol 224 2. Hypertensive urgency ?- Patient does not have a history of HTN, and states her BP is usually within normal limits at home. ?- started losartan as inpatient, BP improved to 160's systolic - patient uses bactrim occasionally for UTI's, therefore switched to chlorthalidone on dc to avoid ARB-bactrim combo 3. HLD ?- no longer on medications, suggest diet modification Hospital Course: Admitted for chest pain. Found to have hypertensive urgecy to 200's systolic but was asymptomatic. Started on chlorthalidone on discharge and will check BP at home and f/u with PCP for further management. Stress testing, EKG and troponins were normal. Time Spent with Patient Time spent: Greater than 30 minutes Exam Vital Signs (past 8 hours): - 08/06/22 08:22 08/06/22 09:38 08/06/22 09:56 Temperature 97.4 F L Pulse Rate 59 L 71 Respiratory Rate 17 Blood Pressure 173/64 H 185/66 H 156/54 H Pulse Oximetry 98 Oxygen Delivery Method Oxygen Flow Rate 0 08/06/22 10:00 08/06/22 11:03 08/06/22 12:52 Temperature Pulse Rate Respiratory Rate Blood Pressure 183/63 H 165/57 H Pulse Oximetry 97 Oxygen Delivery Method Room Air Oxygen Flow Rate 08/06/22 13:24 08/06/22 14:17 Temperature Pulse Rate 77 Respiratory Rate 17 Blood Pressure 169/57 H Pulse Oximetry 97 97 Oxygen Delivery Method Room Air Oxygen Flow Rate 0 Oxygen Delivery Method Room Air Oxygen Flow Rate 0 Narrative Exam Narrative: General:? Patient is well developed and well nourished, in no distress at this time. HEENT:? Normocephalic, atraumatic, extraocular muscles intact, oral pharynx is clear and mucous membranes are moist. Neck: supple and symmetric, trachea is midline, no cervical adenopathy. Negative for JVD Chest:? Normal AP diameter and contour without kyphoscoliosis, no tachypnea, equal chest rise bilaterally. Lungs:? CTA b/l no wheezing rhonchi or rales. Cardio:?RRR no m/r/g. Abdomen: S NT ND. No CVA tenderness. Musculoskeletal:? Muscle strength and tone are equal within normal limits, no de formity. Extremities: No edema or joint effusions. No cyanosis or clubbing. Skin:? Pale,? Warm to touch,dry and intact without rashes, ulcerations or petechiae.? Neuro:? Alert and orientated x3,? sensation to touch intact in all extremities, no gross deficits noted of cranial nerves. Psych:? Patient has a well-kept appearance, appropriate affect, mental status attitude thought context and judgment are appropriate for age. Objective Labs 08/06/22 05:25 08/06/22 05:25 Labs: Laboratory Results - last 24 hr 08/05/22 08/05/22 08/05/22 14:50 16:30 17:15 WBC RBC Hgb Hct MCV MCH MCHC RDW Plt Count Neut % (Auto) Lymph % (Auto) [place] % (Auto) Eos % (Auto) Baso % (Auto) Neut # (Auto) Lymph # (Auto) [place] # (Auto) Eos # (Auto) Baso # (Auto) RBC Morphology Anisocytosis Macrocytosis Sodium Potassium Chloride Carbon Dioxide BUN Creatinine Estimated GFR BUN/Creatinine Ratio Glucose Calcium Magnesium Troponin I < 0.012 Triglycerides Cholesterol LDL Cholesterol, Calc HDL Cholesterol TSH Urine RBC 1-5/hpf Urine WBC 5-10/hpf H Ur Squamous Epith Cells 1-5 /hpf Urine Bacteria Many (>30) H Ur Culture Indicated? Specimen cultured SARS-CoV-2 (PCR) Negative 08/05/22 08/06/22 08/06/22 22:40 05:25 05:25 WBC 4.5 RBC 3.40 L Hgb 11.7 L Hct 34.8 L MCV 102.6 H MCH 34.4 H MCHC 33.5 RDW 21.0 H Plt Count 347 Neut % (Auto) 50.7 Lymph % (Auto) 30.1 [place] % (Auto) 12.9 Eos % (Auto) 4.6 H Baso % (Auto) 1.7 Neut # (Auto) 2300 Lymph # (Auto) 1400 [place] # (Auto) 600 Eos # (Auto) 200 Baso # (Auto) 100 RBC Morphology Not Reportable Anisocytosis 1+ H Macrocytosis 1+ H Sodium 139 Potassium 3.9 Chloride 105 Carbon Dioxide 26 BUN 18 H Creatinine 0.86 Estimated GFR > 60 BUN/Creatinine Ratio 20.9 Glucose 91 Calcium 8.8 Magnesium 2.2 Troponin I < 0.012 Triglycerides 112 Cholesterol 224 H LDL Cholesterol, Calc 139 H HDL Cholesterol 63 H TSH Urine RBC Urine WBC Ur Squamous Epith Cells Urine Bacteria Ur Culture Indicated? SARS-CoV-2 (PCR) 08/06/22 05:25 WBC RBC Hgb Hct MCV MCH MCHC RDW Plt Count Neut % (Auto) Lymph % (Auto) [place] % (Auto) Eos % (Auto) Baso % (Auto) Neut # (Auto) Lymph # (Auto) [place] # (Auto) Eos # (Auto) Baso # (Auto) RBC Morphology Anisocytosis Macrocytosis Sodium Potassium Chloride Carbon Dioxide BUN Creatinine Estimated GFR BUN/Creatinine Ratio Glucose Calcium Magnesium Troponin I Triglycerides Cholesterol LDL Cholesterol, Calc HDL Cholesterol TSH 1.06 Urine RBC Urine WBC Ur Squamous Epith Cells Urine Bacteria Ur Culture Indicated? SARS-CoV-2 (PCR) [facility] Medical History Actinic keratosis Allergic rhinitis Arthritis Basal cell carcinoma Colon polyps Hearing loss (04/2014) Hyperlipidemia Recurrent UTI (urinary tract infection) Subclinical hyperthyroidism Surgical History History of bilateral salpingo-oophorectomy (BSO) History of cataract removal with insertion of prosthetic lens History of tonsillectomy Hx of bladder repair surgery Status post cholecystectomy Status post hysterectomy Family History Father Bladder cancer CAD (coronary artery disease) Mother Dementia Stroke Hypertension Social History household members: spouse Smoking Status: Never smoker alcohol intake: never Discharge Plan Discharge Plan Patient Disposition: Home Provider Discharge Comment: You were admitted for chest pain and your workup was all reassuring including normal heart enzymes, EKG and stress test. Your blood pressure was very high in the hospital so I've put you on a blood pressure medication. Please see your PCP about continuing this shelter or not. Discharge orders & Medications Prescriptions: New chlorthalidone 25 mg tablet 12.5 mg PO DAILY Qty: 30 0RF Continued cholecalciferol (vitamin D3) 2,000 unit capsule 2,000 unit PO DAILY vitamin B complex [B Complex-Vitamin B12] Tablet 1 tab PO DAILY Qty: 0 sulfamethoxazole-trimethoprim [Bactrim DS] 800-160 mg tablet 1 tab PO BID Qty: 10 5RF Rx Instructions: standing order for frequent UTIs d-mannose 500 mg capsule 500 mg PO DAILY Medication counseling provided by Pharmacist: Yes Follow up/Referrals: Brett Chairez MD [Primary Care Provider] - 08/19/22 10:00 am (Appt;08/19 @ 10:[address] Chairez please arrive @ 9:45 for check in ) Visit Report/Discharge Packet Instructions: How to Prevent Falls, DI for Chest Pain, Chlorthalidone Stand Alone Forms: Patient Portal/API, Stroke Signs & Symptoms Discharge Data Primary Care Provider: Brett Chairez Attending Provider: Burke Reeves Admit Date/Time: 08/05/22 17:20 Quality VTE Deep Vein Thrombosis/Pulmonary Embolism Present on Admission: No
--- NOTE | 2022-08-06 16:47 | PC.NURSE ---
Day shift: Paperwork signed, all questions answered. Spouse in room for teachings. Zamzam from Pharmacy went over new prescription BP medication. Left unit via w/c at 1645 with JULISA Leonard. Pt decided I was very happy with my care here. Thank you.
[2022-08-07 05:14] LABS: Labcorp Hemoglobin (Hb) A1c 5.5 % (4.8-5.6)
== END 2022-08-06 16:47 | disposition home or self-care (01) ==
LOC: ED 15:25 → AC 17:20
PROVIDERS: Admitting Provider Internal Medicine; Emergency Provider Emergency Medicine; PCP Student in an Organized Health Care Education/Training Program; Referring Provider Emergency Medicine; Visit Provider Internal Medicine
DX: I16.0 Hypertensive urgency (principal); R07.9 Chest pain, unspecified; Z20.822 Contact with and (suspected) exposure to COVID-19
CPT/HCPCS: 36415; 71045; 78452; 80048; 80053; 80061; 81003; 81015; 82550; 83036; 83690; 83735; 84443; 84484; 85025; 85610; 85730; 87086; 87635; 93017; 99284; 99285; C9803; G0378; A9502

== ENCOUNTER → 2022-10-12 17:18 | Outpatient (CLI) | payer MEDICARE, BC, SELFPAY ==
[2022-08-05 17:54] VITALS: BMI 27.3
[2022-10-12 18:22] LABS: Appearance Urine UA SL CLOUDY; Bilirubin Urine UA NEGATIVE (NEGATIVE); Color Urine UA YELLOW; Glucose Urine UA NEGATIVE (Negative); Ketones Urine UA NEGATIVE (NEGATIVE); Leukocyte Esterase Urine UA 3+ (NEGATIVE); Nitrite Urine UA NEGATIVE (Negative); Occult Blood Urine UA 2+ (Negative); Protein Urine UA NEGATIVE (Negative); Specific Gravity Urine UA <=1.005 (1.000-1.035); Urobilinogen Urine UA 0.2 E.U./dL (0.2)
[2022-10-12 18:32] LABS: Amorphous Sediment Urine 2+; Bacteria Urine Many (>30); RBC Urine 1-5/HPF (0-5/HPF); Squamous Epithelial Cell Urine 5-10 /HPF (0-5/HPF); WBC Urine 10-30/HPF (0-5/HPF); pH Urine UA 6.5 (4.5-8.0)
[2022-10-12 18:33] LABS: Culture Indicated Urine Specimen Cultured
== END ==
PROVIDERS: PCP Pediatrics; Referring Provider Pediatrics; Visit Provider Pediatrics
DX: R30.0 Dysuria (principal)
CPT/HCPCS: 81001; 87077; 87086

== ENCOUNTER → 2022-10-27 08:58 | Outpatient (CLI) | payer MEDICARE, BC, SELFPAY ==
[2022-08-05 17:54] VITALS: BMI 27.3
[2022-10-27 10:15] LABS: Appearance Urine UA CLOUDY; Bilirubin Urine UA NEGATIVE (NEGATIVE); Color Urine UA YELLOW; Glucose Urine UA NEGATIVE (Negative); Ketones Urine UA NEGATIVE (NEGATIVE); Leukocyte Esterase Urine UA 2+ (NEGATIVE); Nitrite Urine UA NEGATIVE (Negative); Occult Blood Urine UA 3+ (Negative); Protein Urine UA 1+ (Negative); Specific Gravity Urine UA 1.025 (1.000-1.035)
[2022-10-27 10:17] LABS: pH Urine UA 5.5 (4.5-8.0)
[2022-10-27 10:29] LABS: Bacteria Urine Moderate (10-30); Culture Indicated Urine Specimen Cultured; RBC Urine 10-30/HPF (0-5/HPF); Squamous Epithelial Cell Urine 1-5 /HPF (0-5/HPF); WBC Urine >100/HPF (0-5/HPF)
== END ==
PROVIDERS: PCP Pediatrics; Referring Provider Pediatrics; Visit Provider Pediatrics
DX: N39.0 Urinary tract infection, site not specified (principal)
CPT/HCPCS: 81001; 87077; 87086

== ENCOUNTER → 2022-11-16 08:19 | Outpatient (CLI) | payer MEDICARE, BC, SELFPAY ==
[2022-08-05 17:54] VITALS: BMI 27.3
[2022-11-16 08:50] LABS: Appearance Urine UA CLEAR; Bilirubin Urine UA NEGATIVE (NEGATIVE); Color Urine UA YELLOW; Glucose Urine UA NEGATIVE (Negative); Ketones Urine UA NEGATIVE (NEGATIVE); Leukocyte Esterase Urine UA 1+ (NEGATIVE); Nitrite Urine UA NEGATIVE (Negative); Occult Blood Urine UA NEGATIVE (Negative); Protein Urine UA NEGATIVE (Negative); Specific Gravity Urine UA <=1.005 (1.000-1.035); Urobilinogen Urine UA 0.2 E.U./dL (0.2)
[2022-11-16 08:56] LABS: Bacteria Urine None Seen; Culture Indicated Urine Specimen Cultured; RBC Urine None Seen (0-5/HPF); Squamous Epithelial Cell Urine 1-5 /HPF (0-5/HPF); WBC Urine 1-5/HPF (0-5/HPF)
== END ==
PROVIDERS: PCP Pediatrics; Referring Provider Pediatrics; Visit Provider Pediatrics
DX: N39.0 Urinary tract infection, site not specified (principal)
CPT/HCPCS: 81001; 87086

== ENCOUNTER → 2022-12-24 11:57 | Outpatient (CLI) | payer MEDICARE, BC, SELFPAY ==
[2022-08-05 17:54] VITALS: BMI 27.3
[2022-12-24 13:15] LABS: Appearance Urine UA CLEAR; Bilirubin Urine UA NEGATIVE (NEGATIVE); Color Urine UA YELLOW; Glucose Urine UA NEGATIVE (Negative); Ketones Urine UA NEGATIVE (NEGATIVE); Leukocyte Esterase Urine UA NEGATIVE (NEGATIVE); Nitrite Urine UA NEGATIVE (Negative); Occult Blood Urine UA NEGATIVE (Negative); Protein Urine UA NEGATIVE (Negative); Specific Gravity Urine UA <=1.005 (1.000-1.035); Urobilinogen Urine UA 0.2 E.U./dL (0.2)
[2022-12-24 13:16] LABS: BUN Creatinine Ratio 21.6 (6-22); Blood Urea Nitrogen 16 mg/dL (7-17); Calcium 9.6 mg/dL (8.4-10.2); Carbon Dioxide 27 mmol/L (22-32); Chloride 103 mmol/L (98-107); Estimated Glomerular Filt Rate > 60 mL/min (>60); Glucose 99 mg/dL (80-110); HEMOLYSIS < 15 (0-50); Sodium 138 mmol/L (137-145)
[2022-12-24 13:18] LABS: Potassium 5.4 mmol/L (3.4-5.1)
[2022-12-24 13:34] LABS: Bacteria Urine None Seen; Culture Indicated Urine Cult Not Indicated; RBC Urine None Seen (0-5/HPF); Squamous Epithelial Cell Urine 5-10 /HPF (0-5/HPF); WBC Urine None Seen (0-5/HPF)
== END ==
PROVIDERS: PCP Pediatrics; Referring Provider Urology; Visit Provider Urology
DX: N39.0 Urinary tract infection, site not specified (principal); R39.9 Unspecified symptoms and signs involving the genitourinary system; Z98.890 Other specified postprocedural states; Z90.710 Acquired absence of both cervix and uterus; Z90.79 Acquired absence of other genital organ(s); Z90.722 Acquired absence of ovaries, bilateral
CPT/HCPCS: 36415; 80048; 81001; 99214

== ENCOUNTER → 2022-12-31 10:07 | Outpatient (CLI) | payer MEDICARE, BC, SELFPAY ==
[2022-08-05 17:54] VITALS: BMI 27.3
--- NOTE | 2022-12-31 10:08 | DI.CT.S_ITS ---
PROCEDURE: CT ABDOMEN PELVIS WO/W CON INDICATIONS: Recurring urinary tract infection TECHNIQUE: After the administration of oral contrast, 5 mm thick sections acquired from the diaphragms to the iliac crests. After the administration of intravenous contrast, 5 mm thick sections acquired from the diaphragms to the symphysis. 5 mm thick coronal and sagittal reformats were acquired. For radiation dose reduction, the following was used: automated exposure control, adjustment of mA and/or kV according to patient size. COMPARISON: None. FINDINGS: Image quality: Excellent. ABDOMEN: Lung bases: Lung bases are clear. Heart size is normal. Solid organs: Liver is normal in size and enhancement. Gallbladder is absent . Biliary system is non-dilated. Pancreas enhances normally. Spleen is normal in size and enhancement. 2.1 centimeter benign left adrenal myelolipoma and 4.2 centimeter right adrenal myelolipoma. Both kidneys are normal in size, with cortical thinning. No hydronephrosis or nephrolithiasis. Bowel and peritoneum: Stomach, small and large bowel loops are normal in caliber and wall thickness. No free fluid or air. Colonic diverticulosis without evidence of diverticulitis. Nodes and vessels: No retroperitoneal or mesenteric adenopathy by size criteria. Aorta and inferior vena are normal in caliber. Miscellaneous: No ventral hernias. PELVIS: Genitourinary: Bladder is incompletely distended with contrast. Trace gas within the urinary bladder. Soft tissue thickening along the anterior bladder, likely from bladder lift surgery. Miscellaneous: Pelvic floor dehiscence, with moderate anterior rectocele. Bones: No suspicious bony lesions. No vertebral body compression fractures. Grade 1 anterolisthesis L4 on L5 secondary to facet arthrosis. IMPRESSION: Pelvic floor dehiscence, with moderate anterior rectocele. Soft tissue attenuation along the anterior bladder wall, likely due to bladder lift surgery. Trace gas within the urinary bladder, which could indicate infection or recent instrumentation. Bilateral renal cortical thinning, possibly chronic parenchymal disease. Colonic diverticulosis without evidence of diverticulitis. Dictated by: Bud Patrick M.D. on 12/31/2022 at 11:05 Approved by: Bud Patrick M.D. on 12/31/2022 at 11:12
== END ==
PROVIDERS: PCP Pediatrics; Referring Provider Urology; Visit Provider Urology
DX: N39.0 Urinary tract infection, site not specified (principal); N81.6 Rectocele; K57.90 Diverticulosis of intestine, part unspecified, without perforation or abscess without bleeding
CPT/HCPCS: 74178; Q9967

== ENCOUNTER → 2023-04-30 11:30 | Outpatient (CLI) | payer MEDICARE, BC, SELFPAY ==
[2022-08-05 17:54] VITALS: BMI 27.3
[2023-04-30 12:46] LABS: Alanine Aminotransferase 13 IU/L (<35); Albumin 4.5 g/dL (3.5-5.0); Albumin Globulin Ratio 1.6 (1.0-2.8); Alkaline Phosphatase 73 U/L (38-126); Aspartate Aminotransferase 23 IU/L (14-36); BUN Creatinine Ratio 26.5 (6-22); Bilirubin Total 0.9 mg/dL (0.2-1.3); Blood Urea Nitrogen 22 mg/dL (7-17); Calcium 9.6 mg/dL (8.4-10.2); Carbon Dioxide 28 mmol/L (22-32); Chloride 104 mmol/L (98-107); Estimated Glomerular Filt Rate > 60 mL/min (>60); Globulin 2.9 g/dL (1.7-4.1); Glucose 104 mg/dL (80-110); HEMOLYSIS < 15 (0-50); Potassium 4.7 mmol/L (3.4-5.1); Sodium 138 mmol/L (137-145); Total Protein 7.4 g/dL (6.3-8.2)
[2023-04-30 13:16] LABS: TSH w/ Reflex to FT4 2.47 uIU/mL (0.47-4.68)
[2023-04-30 13:49] LABS: Folate 10.8 ng/mL (2.76-20.0); Vitamin B12 > 1000 pg/mL (239-931)
[2023-04-30 15:36] LABS: Vitamin D 25 Hydroxy (D3) 38.4 ng/mL (30.0-100.0)
== END ==
PROVIDERS: PCP Family Medicine; Referring Provider Family Medicine; Visit Provider Family Medicine
DX: R20.2 Paresthesia of skin (principal); R79.89 Other specified abnormal findings of blood chemistry; E87.5 Hyperkalemia; Z86.39 Personal history of other endocrine, nutritional and metabolic disease; E53.9 Vitamin B deficiency, unspecified; D64.9 Anemia, unspecified
CPT/HCPCS: 36415; 80053; 82306; 82607; 82746; 84443

== ENCOUNTER → 2023-05-06 10:49 | Outpatient (CLI) | payer MEDICARE, BC, SELFPAY ==
[2022-08-05 17:54] VITALS: BMI 27.3
== END ==
PROVIDERS: Family Provider Family Medicine; PCP Family Medicine; Visit Provider Urology
DX: N39.0 Urinary tract infection, site not specified (principal); N95.2 Postmenopausal atrophic vaginitis; R39.9 Unspecified symptoms and signs involving the genitourinary system; Z98.890 Other specified postprocedural states; Z90.710 Acquired absence of both cervix and uterus; Z90.79 Acquired absence of other genital organ(s); Z90.722 Acquired absence of ovaries, bilateral
CPT/HCPCS: 81002; 87086; 99214

== ENCOUNTER → 2023-05-14 09:11 | Outpatient (CLI) | payer MEDICARE, BC, SELFPAY ==
[2022-08-05 17:54] VITALS: BMI 27.3
--- NOTE | 2023-05-14 09:12 | DI.US.S_ITS ---
PROCEDURE: US EXTREMITY NONVASC UPPER LT INDICATIONS: Eval left wrist cyst TECHNIQUE: Real-time scanning was performed of the left wrist , with image documentation. COMPARISON: None. FINDINGS: No focal mass, fluid collection or area of abnormal appearance. IMPRESSION: No definitive abnormality is identified. If concern persists, MRI is recommended. Dictated by: Maria Luisa Adames M.D. on 05/21/2023 at 11:10 Approved by: Maria Luisa Adames M.D. on 05/21/2023 at 11:13
== END ==
PROVIDERS: Family Provider Family Medicine; PCP Family Medicine; Referring Provider Family Medicine; Visit Provider Family Medicine
DX: M67.40 Ganglion, unspecified site (principal); M25.432 Effusion, left wrist
CPT/HCPCS: 76882

== ENCOUNTER → 2023-05-20 09:09 | Outpatient (CLI) | payer MEDICARE, BC, SELFPAY ==
[2022-08-05 17:54] VITALS: BMI 27.3
== END ==
LOC: PHYS 09:11
PROVIDERS: Family Provider Family Medicine; PCP Family Medicine; Referring Provider Family Medicine; Visit Provider Family Medicine
DX: R20.2 Paresthesia of skin (principal)
CPT/HCPCS: 95886; 95910

== ENCOUNTER → 2023-05-26 16:06 | Outpatient (CLI) | payer MEDICARE, BC, SELFPAY ==
[2022-08-05 17:54] VITALS: BMI 27.3
== END ==
PROVIDERS: Family Provider Family Medicine; PCP Family Medicine; Visit Provider Urology
DX: R39.9 Unspecified symptoms and signs involving the genitourinary system (principal)
CPT/HCPCS: 87086

== ENCOUNTER → 2023-06-03 08:09 | Outpatient (CLI) | payer MEDICARE, BC, SELFPAY ==
[2022-08-05 17:54] VITALS: BMI 27.3
== END ==
PROVIDERS: Family Provider Family Medicine; PCP Family Medicine; Visit Provider Urology
DX: N39.0 Urinary tract infection, site not specified (principal); N95.2 Postmenopausal atrophic vaginitis; R39.9 Unspecified symptoms and signs involving the genitourinary system; Z98.890 Other specified postprocedural states
CPT/HCPCS: 81002; 87086; 99214

== ENCOUNTER → 2023-07-29 08:07 | Outpatient (CLI) | payer MEDICARE, BC, SELFPAY ==
[2022-08-05 17:54] VITALS: BMI 27.3
== END ==
PROVIDERS: Family Provider Family Medicine; PCP Family Medicine; Visit Provider Urology
DX: R39.9 Unspecified symptoms and signs involving the genitourinary system (principal)
CPT/HCPCS: 87086

== ENCOUNTER → 2023-08-25 08:16 | Outpatient (CLI) | payer MEDICARE, BC, SELFPAY ==
[2022-08-05 17:54] VITALS: BMI 27.3
== END ==
PROVIDERS: Family Provider Family Medicine; PCP Family Medicine; Visit Provider Urology
DX: N39.0 Urinary tract infection, site not specified (principal); N95.2 Postmenopausal atrophic vaginitis; R39.9 Unspecified symptoms and signs involving the genitourinary system
CPT/HCPCS: 51798; 81002; 87086; 99214

== ENCOUNTER 2023-08-27 14:15 | Emergency (ER) | payer MEDICARE, BC, SELFPAY ==
[2022-08-05 17:54] VITALS: BMI 27.3
[2023-08-27 14:19] VITALS: BP 177/74; PULSE 84; RESP 16; TEMP 36.9; O2SAT 95; BMI 26.9
--- NOTE | 2023-08-27 14:23 | DI.RAD.S_ITS ---
PROCEDURE: XR FOOT RT MIN 3V INDICATIONS: 2nd toe infection TECHNIQUE: 3 views of the foot were acquired. COMPARISON: None. FINDINGS: Bones: No fractures or dislocations. No suspicious bony lesions. Midfoot osteoarthritis. Multiple hammertoe deformities. No bony erosion. Soft tissues: No tibiotalar joint effusion. Achilles tendon appears normal. IMPRESSION: No radiographic evidence of osteomyelitis. Although no bony erosions are identified, plain film radiography is relatively insensitive in the acute phases of osteomyelitis and may not demonstrate radiographic changes for 15 days. If acute osteomyelitis is of clinical concern, nuclear medicine regional bone scan or MRI is recommended. Dictated by: Bud Patrick M.D. on 08/27/2023 at 15:28 Approved by: Bud Patrick M.D. on 08/27/2023 at 15:30
--- NOTE | 2023-08-27 15:46 | ED_ITS ---
HPI - Skin/Abscess/Foreign Bdy General Chief complaint: Skin/Abscess/Foreign Body Stated complaint: R toe infection sent by [facility] Time Seen by Provider: 08/27/23 15:11 Source: patient Mode of arrival: Ambulatory Limitations: no limitations History of Present Illness HPI narrative: This is an 87-year-old female here with a right 2nd toe problem. She has had onychomycotic changes for a long time but over the last few days has developed redness and swelling, there is a blister that burst the area has become warm and painful. She has not having fevers or shaking chills. She is ambulatory. Patient is not a diabetic or immunosuppressed. Patient was seen urgent care and referred here, additionally, she tells me that she is scheduled to see Dr. Dumont, supervising architect for this and a couple of weeks she has not been seen by podiatry yet. Related Data Home Medications Medication Instructions Recorded Confirmed cholecalciferol (vitamin D3) 50 2,000 unit PO DAILY 07/20/18 08/27/23 mcg (2,000 unit) capsule d-mannose 500 mg capsule 500 mg PO DAILY 05/06/21 08/27/23 L.acidoph, paracasei,B. lactis 10 cell PO 12/24/22 08/27/23 billion cell capsule (Digestive Advantage Advanced Probiotic) acetaminophen 500 mg tablet 500 mg PO Q6H PRN 12/24/22 08/27/23 (Tylenol Extra Strength) triamcinolone acetonide [Nasacort] intranasal 12/24/22 08/27/23 Previous Rx's Medication Instructions Recorded estradiol 0.01% (0.1 mg/gram) 1 g vaginal 2XW #42.5 grams 01/22/23 vaginal cream sulfamethoxazole 400 1 tab PO BEDTIME #90 tabs 05/28/23 mg-trimethoprim 80 mg tablet (Bactrim) cephalexin 500 mg capsule 500 mg PO QID #40 caps 08/27/23 Allergies Allergy/AdvReac Type Severity Reaction Status Date / Time codeine AdvReac Mild NAUSEA Verified 08/27/23 14:23 Patient History Medical History (Updated 08/27/23 @ 16:58 by Chance Borja MD) Postmenopausal atrophic vaginitis Lower urinary tract symptoms Subclinical hyperthyroidism Hearing loss (04/2014) Arthritis Actinic keratosis Basal cell carcinoma Allergic rhinitis Recurrent UTI (urinary tract infection) Colon polyps Hyperlipidemia Surgical History (Updated 12/29/22 @ 09:27 by Kenan Braden MD) Hx of bladder repair surgery History of cataract removal with insertion of prosthetic lens Status post cholecystectomy History of tonsillectomy History of bilateral salpingo-oophorectomy (BSO) Status post hysterectomy Family History Father Bladder cancer CAD (coronary artery disease) Gout Mother Dementia Stroke Hypertension Social History marital status: number of children: 4 household members: spouse occupational status: previously employed and other Smoking Status: Never smoker alcohol intake: never caffeine: Yes Type(s) of exercise: walking and weight lifting frequency: daily Smoking Status: Never smoker Substance Use Type: does not use Exam Initial Vital Signs Initial Vital Signs: Vital Signs Temperature 98.5 F 08/27/23 14:19 Pulse Rate 84 08/27/23 14:19 Respiratory Rate 16 08/27/23 14:19 Blood Pressure 177/74 H 08/27/23 14:19 Pulse Oximetry 95 08/27/23 14:19 Oxygen Delivery Method Room Air 08/27/23 14:19 Const Other: Appears to be in no distress Resp Other: Normal respiratory effort Cardio Other: Normal rate Extrem Other: Right foot appears normal with the exception of some erythema and swelling at the base of the 2nd toe and abnormalities limited to the 2nd toe. The 2nd toe has obvious outcome mycotic changes of the nail, there is a hard spongy structure at the tip of the toe, possibly nail that has grown down over the tip of the toe. There is a superficial skin tear on the lateral aspect of the toe there is no purulent drainage, pulses are intact she has intact sensation capillary refills intact there is no lymphangitic streaking Course Orders Ordered: ED Orders 08/27/23 14:23 XR foot RT min 3V Stat 08/27/23 16:07 CBC Auto Diff [Complete Blood Count AUTO DIFF] Stat CMP [Comprehensive Metabolic Panel] Stat Discontinued Medications Ceftriaxone Sodium 2,000 mg/ (Sodium Chloride) 100 mls @ 200 mls/hr IV NOW ONE Stop: 08/27/23 15:45 Last Infusion: 08/27/23 16:51 Dose: Infused Documented By: JOSÉ LUIS Admin: 08/27/23 16:15 Dose: 200 mls/hr Documented By: ES Consultations Consultation #1: Discussed with Dr. Stacy who is on-call for [facility], he will message the supervising architect to facilitate follow-up Vital Signs Vital signs: Vital Signs - 8 hr 08/27/23 14:19 08/27/23 17:30 Temperature 98.5 F 98.3 F Pulse Rate 84 78 Respiratory Rate 16 18 Blood Pressure 177/74 H 162/71 H Pulse Oximetry 95 97 Oxygen Delivery Method Room Air Room Air MDM - Skin/Abscess/Foreign Bdy Lab Data Lab results narrative: CBC with diff shows a normal white count, CMP her glucose is slightly elevated on a random sampling 08/27/23 16:07 08/27/23 16:07 Labs: Lab Results 08/27/23 Range/Units 16:07 WBC 7.6 (4.5-11.0) X10^3/uL RBC 2.98 L (4.0-5.2) X10^6/uL Hgb 10.4 L (12.0-16.0) g/dL Hct 30.9 L (36-46) % MCV 103.8 H (80-100) fL MCH 34.8 H (26-34) PG MCHC 33.6 (30-36) % RDW 22.9 H (11.6-14.8) % Plt Count 373 (150-400) X10^3/uL Neut % (Auto) 72.9 (50-75) % Lymph % (Auto) 17.7 L (25-40) % [place] % (Auto) 6.8 (3-14) % Eos % (Auto) 1.3 L (2-4) % Baso % (Auto) 1.3 (0-2) % Neut # (Auto) 5500 (1793-3152) /uL Lymph # (Auto) 1300 (2015-8862) /uL [place] # (Auto) 500 (0-900) /uL Eos # (Auto) 100 (0-450) /uL Baso # (Auto) 100 (0-100) /uL RBC Morphology See below Anisocytosis 1+ H Sodium 137 (137-145) mmol/L Potassium 4.3 (3.4-5.1) mmol/L Chloride 106 (98-107) mmol/L Carbon Dioxide 24 (22-32) mmol/L BUN 14 (7-17) mg/dL Creatinine 0.85 (0.52-1.04) mg/dL Estimated GFR > 60 (>60) mL/min BUN/Creatinine Ratio 16.5 (6-22) Glucose 114 H (80-110) mg/dL Calcium 8.4 (8.4-10.2) mg/dL Total Bilirubin 1.0 (0.2-1.3) mg/dL AST 44 H (14-36) IU/L ALT 29 (<35) IU/L Alkaline Phosphatase 74 (38-126) U/L Total Protein 7.0 (6.3-8.2) g/dL Albumin 4.4 (3.5-5.0) g/dL Globulin 2.6 (1.7-4.1) g/dL Albumin/Globulin Ratio 1.7 (1.0-2.8) Imaging Data Extremity x-ray #1: My Impression: Independent review of right foot x-ray, no soft tissue gas, no evidence of osteomyelitis Radiologist's Impression: Radiology reported no evidence of osteomyelitis MDM Narrative Medical decision making narrative: 87-year-old female presenting with evidence of a cellulitic toe in the right foot. She is not a diabetic, she does not appear to be systemically ill and would prefer to be treated as an outpatient which I think is appropriate. Patient and her family members were instructed regarding oral antibiotics elevation and indications for return to the emergency department. I contacted on-call orthopedics to facilitate timely follow up with Podiatry. Discharge Plan Departure Patient Disposition: Home Clinical Impression: Cellulitis Qualifiers: Site of cellulitis: extremity Site of cellulitis of extremity: toe Laterality: right Qualified Code(s): L03.031 - Cellulitis of right toe Activity Restrictions/Additional Instructions: I have sent a prescription for an antibiotic, cephalexin to your pharmacy. Start this tomorrow, we gave IV antibiotics today that will cover you for 24 hours. Keep your foot elevated above the level of the heart as much as possible. If you are getting worse such as having increasing redness increasing pain fevers or shaking chills return to the emergency department. Recheck soon with your primary care provider and call your supervising architect office on Wednesday to see if you can be seen sooner. Prescriptions: New cephalexin 500 mg capsule 500 mg PO QID Qty: 40 0RF Rx Instructions: Take 1 capsule 4 times daily for 10 days No Action cholecalciferol (vitamin D3) 2,000 unit capsule 2,000 unit PO DAILY sulfamethoxazole-trimethoprim [Bactrim] 400-80 mg tablet 1 tab PO BEDTIME Qty: 90 3RF d-mannose 500 mg capsule 500 mg PO DAILY Digestive Advantage Advanced 10 billion cell capsule PO acetaminophen [Tylenol Extra Strength] 500 mg tablet 500 mg PO Q6H PRN triamcinolone acetonide [Nasacort] intranasal estradiol 0.01 % (0.1 mg/gram) cream 1 g vaginal 2XW Qty: 42.5 6RF Rx Instructions: Apply hormonal cream once at bedtime for 10 days. Then apply hormonal cream once at bedtime twice a week for lifetime. Referrals: Sharon Xiong DO [Primary Care Provider] - Stand Alone Forms: Patient Portal/API
[2023-08-27] MEDS: cefTRIAXone 2,000 MG in SODIUM CHLORIDE 0.9% 100 ML 200 MG IV (16:15)
[2023-08-27 16:30] LABS: Alanine Aminotransferase 29 IU/L (<35); Albumin 4.4 g/dL (3.5-5.0); Albumin Globulin Ratio 1.7 (1.0-2.8); Alkaline Phosphatase 74 U/L (38-126); Aspartate Aminotransferase 44 IU/L (14-36); BUN Creatinine Ratio 16.5 (6-22); Blood Urea Nitrogen 14 mg/dL (7-17); Calcium 8.4 mg/dL (8.4-10.2); Carbon Dioxide 24 mmol/L (22-32); Chloride 106 mmol/L (98-107); Estimated Glomerular Filt Rate > 60 mL/min (>60); Globulin 2.6 g/dL (1.7-4.1); Glucose 114 mg/dL (80-110); HEMOLYSIS 45 (0-50); Potassium 4.3 mmol/L (3.4-5.1); Sodium 137 mmol/L (137-145)
[2023-08-27 16:37] LABS: Basophils Absolute Auto 100 /uL (0-100); Basophils Percent Auto 1.3 % (0-2); Eosinophils Absolute Auto 100 /uL (0-450); Eosinophils Percent Auto 1.3 % (2-4); Hematocrit 30.9 % (36-46); Hemoglobin 10.4 g/dL (12.0-16.0); Lymphocytes Absolute Auto 1300 /uL (1100-4500); Lymphocytes Percent Auto 17.7 % (25-40); Mean Corpuscular HGB Conc 33.6 % (30-36); Mean Corpuscular Hemoglobin 34.8 PG (26-34); Mean Corpuscular Volume 103.8 fL (80-100); Monocytes Absolute Auto 500 /uL (0-900); Monocytes Percent Auto 6.8 % (3-14); Neutrophils Absolute Auto 5500 /uL (1500-7000); Neutrophils Percent Auto 72.9 % (50-75); Platelet Count 373 X10^3/uL (150-400); Red Blood Cell Count 2.98 X10^6/uL (4.0-5.2); Red Cell Distribution Width 22.9 % (11.6-14.8); White Blood Cell Count 7.6 X10^3/uL (4.5-11.0)
[2023-08-27 16:38] LABS: Add Manual Diff / Slide Review SLIDE REVIEW
[2023-08-27 17:00] LABS: Anisocytosis 1+
[2023-08-27 17:30] VITALS: BP 162/71; PULSE 78; RESP 18; TEMP 36.8; O2SAT 97
== END 2023-08-27 17:28 | disposition home or self-care (01) ==
PROVIDERS: Emergency Provider Emergency Medicine; Family Provider Family Medicine; PCP Family Medicine
DX: L03.031 Cellulitis of right toe (principal)
CPT/HCPCS: 36415; 73630; 80053; 85025; 96365; 99284; J0696

== ENCOUNTER → 2023-10-19 14:16 | Outpatient (CLI) | payer MEDICARE, BC, SELFPAY ==
[2022-08-05 17:54] VITALS: BMI 27.3
== END ==
PROVIDERS: Family Provider Family Medicine; PCP Family Medicine; Visit Provider Urology
DX: N39.0 Urinary tract infection, site not specified (principal)
CPT/HCPCS: 87086

== ENCOUNTER → 2023-12-02 13:16 | Outpatient (CLI) | payer MEDICARE, BC, SELFPAY ==
[2022-08-05 17:54] VITALS: BMI 27.3
--- NOTE | 2023-12-02 13:19 | DI.MG.S_ITS ---
BILATERAL DIGITAL SCREENING MAMMOGRAM 3D/2D WITH CAD: 12/02/2023 CLINICAL: Routine screening. Family history of breast cancer. Comparison is made to exams dated: 06/24/2022 mammogram, 04/14/2021 mammogram, and 04/12/2019 mammogram - [facility]. There are scattered areas of fibroglandular density in both breasts (category b / 25%-50% glandular tissue). Current study was also evaluated with a Computer Aided Detection (CAD) system. There are benign vascular calcifications in both breasts. No significant masses, calcifications, or other findings are seen in either breast. There has been no significant interval change. IMPRESSION: BENIGN There is no mammographic evidence of malignancy. A 1 year screening mammogram is recommended. This exam was interpreted at Station ID: [id number]. NOTE: For mammograms, a report in lay terms will be sent to the patient. Approximately 15% of breast malignancies will not be visualized mammographically. In the management of a palpable breast mass, a negative mammogram must not discourage biopsy of a clinically suspicious lesion. Electronically Signed By: Silvio plasencia/michaelle:12/02/2023 13:50:11 letter sent: Normal Exam ACR BI-RADS Category 2: Benign Finding(s) [id number]
== END ==
PROVIDERS: Family Provider Family Medicine; PCP Family Medicine; Referring Provider Family Medicine; Visit Provider Family Medicine
DX: Z12.31 Encounter for screening mammogram for malignant neoplasm of breast (principal); R92.323 Mammographic fibroglandular density, bilateral breasts; Z80.3 Family history of malignant neoplasm of breast
CPT/HCPCS: 77063; 77067

== ENCOUNTER → 2024-04-14 08:10 | Outpatient (CLI) | payer MEDICARE, BC, SELFPAY ==
[2022-08-05 17:54] VITALS: BMI 27.3
== END ==
PROVIDERS: Family Provider Family Medicine; PCP Family Medicine; Referring Provider Urology; Visit Provider Urology
DX: N39.0 Urinary tract infection, site not specified (principal)
CPT/HCPCS: 87086

== ENCOUNTER 2024-04-20 11:30 | Outpatient (RCR) | payer MEDICARE, BC, SELFPAY ==
[2022-08-05 17:54] VITALS: BMI 27.3
--- NOTE | 2024-01-25 17:50 | PT.OIE ---
Current Diagnoses Lesion of sciatic nerve, unspecified lower limb (01/25/24) Past Medical History (Last Updated 04/14/23 @ 08:27 by Kenan Braden MD) Actinic keratosis Allergic rhinitis Arthritis Basal cell carcinoma Colon polyps Hearing loss (04/2014) Hyperlipidemia Lower urinary tract symptoms Postmenopausal atrophic vaginitis Recurrent UTI (urinary tract infection) Subclinical hyperthyroidism Past Surgical History (Last Updated 12/29/22 @ 09:27 by Kenan Braden MD) History of bilateral salpingo-oophorectomy (BSO) History of cataract removal with insertion of prosthetic lens History of tonsillectomy Hx of bladder repair surgery Status post cholecystectomy Status post hysterectomy Visit Care Team Role Provider Type Sharon Xiong DO Attending Provider Physician Family Provider Primary Care Provider Referring Provider Specialty: Family Practice Address: [address] [place] [address], [address], [facility] Email: [email or web address] Physical Therapy Initial Evaluation PT-OP-A Visit Information Start: 01/24/24 18:13 Freq: Status: Active Protocol: Document 01/25/24 11:32 [facility] (Rec: 01/25/24 13:04 [facility] [id number]) Out-Patient Physical Therapy Visit Information Visit Information Visit Type Initial Evaluation Visit Note 04/14 Visit Start Time 11:33 Visit Stop Time 12:23 Visit Number 1 Number of PASSENGER TRAIN BRAKER Visits 0 PT-OP-B Current Condition Start: 01/24/24 18:13 Freq: Status: Active Protocol: Document 01/25/24 11:32 [facility] (Rec: 01/25/24 13:04 [facility] [id number]) Current Condition History of Current Condition Onset Date 2-3 months ago Current Complaints L hip and down lat leg History of Current Condition Pt saw doctor about a month or 2 ago and was dx w/piriformis syndrome and has done exercises from doctor. It started a few weeks before. It starts in L buttocks, and goes down the leg. Can't stand long enough w/baptism. Even just getting ready for a few min, gets pain. Pt lost spouse in September and feels like has gotten puney and less active . They used to walk, and hasn' t walked since. When leg starts to bother her standing still, it then it hurts to walk. Sometimes it does hurt quite a bit to walk. Tries to walk 3k steps a day. hx of oophrectomy and hysterectomy in late 30s, early 40s. in 2018 shelly had gallbladder removal. Treatment Goals Patient/Caregiver Goals be able to stand for longer, get back to walks, get back to using legs more. PT-OP-C Subjective Start: 01/24/24 18:13 Freq: Status: Active Protocol: Document 01/25/24 11:32 [facility] (Rec: 01/25/24 13:04 [facility] [id number]) Patient Questionnaires Lower Extremity Functional Scale LEFS Score 52/80 OP-PT Pain Assessment Location L hip Pain Location Details L buttocks to L lat leg to ankle Description Aching Frequency Intermittent Pain Aggravating Factors Standing,Walking Other Pain Aggravating Factors w/in 5 min of standing Pain Alleviating Factors Sitting Other Pain Alleviating Factors laying down PT-OP-D Balance Start: 01/24/24 18:13 Freq: Status: Active Protocol: Document 01/25/24 11:32 [facility] (Rec: 01/25/24 13:04 [facility] [id number]) Balance Tests Single Limb Standing Single Limb- Right >30 sec Single Limb- Left 14 sec-hp drop PT-OP-G Mobility & Gait Start: 01/24/24 18:13 Freq: Status: Active Protocol: Document 01/25/24 11:32 [facility] (Rec: 01/25/24 13:04 [facility] [id number]) OP Gait Assessment Comments Gait Comments dec stance time LLE w/add of LLE and dec push off LLE Stair Climbing Evaluation Comments Stair Climbing Comments recip w/rails bt dec control and strengthnoted on L up and down PT-OP-J Posture/Palpation/Skin Start: 01/24/24 18:13 Freq: Status: Active Protocol: Document 01/25/24 11:32 [facility] (Rec: 01/25/24 13:04 [facility] [id number]) Posture Evaluation Felisa Postural Classification System Lumbar Protective Mechanism Left AP 0 Lumbar Protective Mechanism Right AP 0 Lumbar Protective Mechanism Left PA 1 Lumbar Protective Mechanism Right PA 0 Comments Posture Comments inc kyphosis, falttened lordosis, L iliac crest higher , equal greater trochanter PT-OP-K Range of Motion Start: 01/24/24 18:13 Freq: Status: Active Protocol: Document 01/25/24 11:32 [facility] (Rec: 01/25/24 13:04 [facility] [id number]) Hip Goniometric Range of Motion Hip Right Active Flexion w/Knee Flexed 108 Straight Leg Raise 81 Left Active Flexion w/Knee Flexed 106 Straight Leg Raise 74 Comments tested w/opp knee bent up PT-OP-L Special Tests Start: 01/24/24 18:13 Freq: Status: Active Protocol: Document 01/25/24 11:32 [facility] (Rec: 01/25/24 13:04 [facility] [id number]) Special Tests Lumbar Spine Special Tests Slump Test Results L positive PT-OP-M Strength Start: 01/24/24 18:13 Freq: Status: Active Protocol: Document 01/25/24 11:32 [facility] (Rec: 01/25/24 13:04 [facility] [id number]) Hip Strength Hip Manual Muscle Testing Right Flexion (L2) 4+ Good+ Abduction 3+ Fair+ External Rotation 4- Good- Internal Rotation 4+ Good+ Left Flexion (L2) 4- Good- Abduction 3 Fair External Rotation 4- Good- Internal Rotation 4- Good- Knee Strength Knee Manual Muscle Testing Right Flexion (S2) 5 Normal Extension (L3) 5 Normal Left Flexion (S2) 4 Good Extension (L3) 4 Good Ankle/Foot Strength Ankle and Foot Manual Muscle Testing Right Dorsiflexion (L4) 5 Normal Plantarflexion (S1) 5 Normal Left Dorsiflexion (L4) 4+ Good+ Plantarflexion (S1) 4+ Good+ Comments PF tested seated B PT-OP-Q Treatments Start: 01/24/24 18:13 Freq: Status: Active Protocol: Document 01/25/24 11:32 [facility] (Rec: 01/25/24 14:32 [facility] [id number]) Therapeutic Exercises Supine Exercises stretches Supine Exercise Name 1. knee to opp chest 2. figure 4 w/pull to chest w/towel Side left Reps/Minutes 30 sec ea Comments review from doctor Sitting Exercises stretch Sitting Exercise Name figure 4 Side left Reps/Minutes 30 sec Self-Care/Home Management Treatment Education Other Education 8 min:edu re: how pelvis being off could put piriformis on tension and inc symptoms in LE . edu on n tension finding. Edu re: weakness on LLE likely not helping pain PT-OP-T Assessment and Plan Start: 10/21/24 18:13 Freq: Status: Active Protocol: Document 01/25/24 11:32 [facility] (Rec: 01/25/24 13:04 [facility] [id number]) Physical Therapy Assessment Rehab Potential Rehabilitation Potential Good Evaluation Complexity Number of Personal Factors/Comorbidities 3 or More Number of Body Systems Impaired 4 or More Clinical Presentation at Evaluation Evolving Impairments Impairments Activity Tolerance,Balance, Functional Activities, Functional Mobility,Gait,Pain, Posture,ROM,Soft Tissue Mobility,Strength Goals strength Short Term Goal (STG) Pt will be indep w/HEP STG Duration 02/28 Physics Teacher Goal (LTG) Pt will score at least 3/5 on all planes LPm and at least 4+ /5 on all BLE MMT to show improved strength for greater ease w/typical daily activties . LTG Duration 04/04 activity Short Term Goal (STG) Pt will be able to stand as needed for baptism and daily homemaking activities w/o pain greater than1/10 STG Duration 02/27 Physics Teacher Goal (LTG) Pt will be able to start going for neighborhood walks w/o reporting inc pain in Lhip or LE LTG Duration 04/04 balance Short Term Goal (STG) Pt will be able to do SLS for at least 20 sec on LLE to show improved balance STG Duration 02/22 Physics Teacher Goal (LTG) Pt will be able to do SLS for at least 30 sec on LLE to show improved balance LTG Duration 04/04 Assessment Summary Assessment Pt presents w/L hip pain w/ radicular symptoms presenting over the past couple months w/ notable weakness of LLE, dec balance and some dec ROM of L hip. She has neural tension in LLE and does have pelvis dysfuction which is likely contributing to this pain. Pt is typically active, but has been less active since passing in September. She is motivated to return to greater activity but is limited by hip causing pain w/extended standing even for short periods in baptism and at home when cooking. Physical Therapy Plan Frequency and Duration Frequency of Treatment 2x/Week Duration of treatment (weeks) 10 Plan of Care Start Date 01/25/24 Plan of Care End Date 04/04/24 Therapeutic Interventions Therapeutic Interventions Balance Training,Gait Training ,Home Exercise Program,Joint Mobilizations,Manual Therapy, Neuromuscular Re-education, Patient/Caregiver Education, Self-Care/Home Management,Soft Tissue Mobilization,Taping, Therapeutic Activities, Therapeutic Exercises Modalities Cold Pack/Ice Massage,Electric Stimulation,Hot Packs, Ultrasound Next Visit Focus/Plan Next Note Type Treatment Note Next Visit Plan manual: pelvis mobs/MET, L hip mobs, STM to piriformis and glutes and ITB, HS HEP: self roll out glute w/ tennis ball, clamshells, hip abd strength s/l, bridge, core work Leg press in clinic
--- NOTE | 2024-01-25 17:50 | PT.OPPOC ---
Physical, Occupational & Speech Therapy At [facility] Current Diagnoses Lesion of sciatic nerve, unspecified lower limb (01/25/24) Visit Care Team Role Provider Type Sharon Xiong DO Attending Provider Physician Family Provider Primary Care Provider Referring Provider Specialty: Family Practice Address: [address] [place] [address], [address], [facility] Email: [email or web address] Plan Of Care PT-OP-B Current Condition Start: 01/24/24 18:13 Freq: Status: Active Protocol: Document 01/25/24 11:32 [facility] (Rec: 01/25/24 13:04 [facility] [id number]) Current Condition History of Current Condition Onset Date 2-3 months ago Current Complaints L hip and down lat leg History of Current Condition Pt saw doctor about a month or 2 ago and was dx w/piriformis syndrome and has done exercises from doctor. It started a few weeks before. It starts in L buttocks, and goes down the leg. Can't stand long enough w/christianity. Even just getting ready for a few min, gets pain. Pt lost spouse in September and feels like has gotten puney and less active . They used to walk, and hasn' t walked since. When leg starts to bother her standing still, it then it hurts to walk. Sometimes it does hurt quite a bit to walk. Tries to walk 3k steps a day. hx of oophrectomy and hysterectomy in late 30s, early 40s. in 2018 shelly had gallbladder removal. Treatment Goals Patient/Caregiver Goals be able to stand for longer, get back to walks, get back to using legs more. PT-OP-T Assessment and Plan Start: 01/24/24 18:13 Freq: Status: Active Protocol: Document 01/25/24 11:32 [facility] (Rec: 01/25/24 13:04 [facility] [id number]) Physical Therapy Assessment Rehab Potential Rehabilitation Potential Good Evaluation Complexity Number of Personal Factors/Comorbidities 3 or More Number of Body Systems Impaired 4 or More Clinical Presentation at Evaluation Evolving Impairments Impairments Activity Tolerance,Balance, Functional Activities, Functional Mobility,Gait,Pain, Posture,ROM,Soft Tissue Mobility,Strength Goals strength Short Term Goal (STG) Pt will be indep w/HEP STG Duration 02/28 Half-Way Goal (LTG) Pt will score at least 3/5 on all planes LPm and at least 4+ /5 on all BLE MMT to show improved strength for greater ease w/typical daily activties . LTG Duration 04/04 activity Short Term Goal (STG) Pt will be able to stand as needed for christianity and daily homemaking activities w/o pain greater than1/10 STG Duration 02/27 Half-Way Goal (LTG) Pt will be able to start going for neighborhood walks w/o reporting inc pain in Lhip or LE LTG Duration 04/04 balance Short Term Goal (STG) Pt will be able to do SLS for at least 20 sec on LLE to show improved balance STG Duration 02/22 Half-Way Goal (LTG) Pt will be able to do SLS for at least 30 sec on LLE to show improved balance LTG Duration 04/04 Assessment Summary Assessment Pt presents w/L hip pain w/ radicular symptoms presenting over the past couple months w/ notable weakness of LLE, dec balance and some dec ROM of L hip. She has neural tension in LLE and does have pelvis dysfuction which is likely contributing to this pain. Pt is typically active, but has been less active since passing in September. She is motivated to return to greater activity but is limited by hip causing pain w/extended standing even for short periods in christianity and at home when cooking. Physical Therapy Plan Frequency and Duration Frequency of Treatment 2x/Week Duration of treatment (weeks) 10 Plan of Care Start Date 01/25/24 Plan of Care End Date 04/04/24 Therapeutic Interventions Therapeutic Interventions Balance Training,Gait Training ,Home Exercise Program,Joint Mobilizations,Manual Therapy, Neuromuscular Re-education, Patient/Caregiver Education, Self-Care/Home Management,Soft Tissue Mobilization,Taping, Therapeutic Activities, Therapeutic Exercises Modalities Cold Pack/Ice Massage,Electric Stimulation,Hot Packs, Ultrasound Next Visit Focus/Plan Next Note Type Treatment Note Next Visit Plan manual: pelvis mobs/MET, L hip mobs, STM to piriformis and glutes and ITB, HS HEP: self roll out glute w/ tennis ball, clamshells, hip abd strength s/l, bridge, core work Leg press in clinic Plan of Care Dates Plan of Care Start Date 01/25/24 Plan of Care End Date 04/04/24 Electronically Signed by: Moraima Mccartney, PT 01/25/24 5882 If you are in agreement with this Plan of Care, please return a signed and dated copy. I have reviewed this Plan of Care and certify that the skilled therapy services above are required to meet the patient?s needs. Physician Signature Date Printed Name and Credentials Clinical Instructor Signature Printed Name and Credentials
--- NOTE | 2024-01-27 12:28 | PT.OTN ---
Current Diagnoses Lesion of sciatic nerve, unspecified lower limb (01/27/24) Physical Therapy Treatment Note PT-OP-A Visit Information Start: 01/24/24 18:13 Freq: Status: Active Protocol: Document 01/27/24 11:38 [facility] (Rec: 01/27/24 12:28 [facility] [id number]) Out-Patient Physical Therapy Visit Information Visit Information Visit Type Treatment Note Visit Note 05/15 Visit Start Time 11:36 Visit Stop Time 12:16 Visit Number 2 Number of AIR DEFENSE CONTROL OFFICER Visits 0 PT-OP-B Current Condition Start: 01/24/24 18:13 Freq: Status: Active Protocol: Document 01/25/24 11:32 [facility] (Rec: 01/25/24 13:04 [facility] [id number]) Current Condition History of Current Condition Onset Date 2-3 months ago Current Complaints L hip and down lat leg History of Current Condition Pt saw doctor about a month or 2 ago and was dx w/piriformis syndrome and has done exercises from doctor. It started a few weeks before. It starts in L buttocks, and goes down the leg. Can't stand long enough w/religion. Even just getting ready for a few min, gets pain. Pt lost spouse in September and feels like has gotten puney and less active . They used to walk, and hasn' t walked since. When leg starts to bother her standing still, it then it hurts to walk. Sometimes it does hurt quite a bit to walk. Tries to walk 3k steps a day. hx of oophrectomy and hysterectomy in late 30s, early 40s. in 2018 shelly had gallbladder removal. Treatment Goals Patient/Caregiver Goals be able to stand for longer, get back to walks, get back to using legs more. PT-OP-C Subjective Start: 01/24/24 18:13 Freq: Status: Active Protocol: Document 01/27/24 11:38 [facility] (Rec: 01/27/24 12:28 [facility] [id number]) OP-PT Subjective Patient Comments Patient Comments pt reports has been doing her stretches. PT-OP-D Balance Start: 01/24/24 18:13 Freq: Status: Active Protocol: Document 01/25/24 11:32 [facility] (Rec: 01/25/24 13:04 [facility] [id number]) Balance Tests Single Limb Standing Single Limb- Right >30 sec Single Limb- Left 14 sec-hp drop PT-OP-G Mobility & Gait Start: 01/24/24 18:13 Freq: Status: Active Protocol: Document 01/25/24 11:32 [facility] (Rec: 01/25/24 13:04 [facility] [id number]) OP Gait Assessment Comments Gait Comments dec stance time LLE w/add of LLE and dec push off LLE Stair Climbing Evaluation Comments Stair Climbing Comments recip w/rails bt dec control and strengthnoted on L up and down PT-OP-J Posture/Palpation/Skin Start: 01/24/24 18:13 Freq: Status: Active Protocol: Document 01/25/24 11:32 [facility] (Rec: 01/25/24 13:04 [facility] [id number]) Posture Evaluation Felisa Postural Classification System Lumbar Protective Mechanism Left AP 0 Lumbar Protective Mechanism Right AP 0 Lumbar Protective Mechanism Left PA 1 Lumbar Protective Mechanism Right PA 0 Comments Posture Comments inc kyphosis, falttened lordosis, L iliac crest higher , equal greater trochanter PT-OP-K Range of Motion Start: 01/24/24 18:13 Freq: Status: Active Protocol: Document 01/25/24 11:32 [facility] (Rec: 01/25/24 13:04 [facility] [id number]) Hip Goniometric Range of Motion Hip Right Active Flexion w/Knee Flexed 108 Straight Leg Raise 81 Left Active Flexion w/Knee Flexed 106 Straight Leg Raise 74 Comments tested w/opp knee bent up PT-OP-L Special Tests Start: 01/24/24 18:13 Freq: Status: Active Protocol: Document 01/25/24 11:32 [facility] (Rec: 01/25/24 13:04 [facility] [id number]) Special Tests Lumbar Spine Special Tests Slump Test Results L positive PT-OP-M Strength Start: 01/24/24 18:13 Freq: Status: Active Protocol: Document 01/25/24 11:32 [facility] (Rec: 01/25/24 13:04 [facility] [id number]) Hip Strength Hip Manual Muscle Testing Right Flexion (L2) 4+ Good+ Abduction 3+ Fair+ External Rotation 4- Good- Internal Rotation 4+ Good+ Left Flexion (L2) 4- Good- Abduction 3 Fair External Rotation 4- Good- Internal Rotation 4- Good- Knee Strength Knee Manual Muscle Testing Right Flexion (S2) 5 Normal Extension (L3) 5 Normal Left Flexion (S2) 4 Good Extension (L3) 4 Good Ankle/Foot Strength Ankle and Foot Manual Muscle Testing Right Dorsiflexion (L4) 5 Normal Plantarflexion (S1) 5 Normal Left Dorsiflexion (L4) 4+ Good+ Plantarflexion (S1) 4+ Good+ Comments PF tested seated B PT-OP-Q Treatments Start: 01/24/24 18:13 Freq: Status: Active Protocol: Document 01/27/24 11:38 [facility] (Rec: 01/27/24 12:28 [facility] [id number]) Gym Equipment Shuttle Recovery Unilateral Squats Resistance 37# ea Reps/Time 15 B Bilateral Squats Resistance 75#, 87# Reps/Time 15 ea Therapeutic Exercises Supine Exercises bridge Side bilateral Reps/Minutes 15 Comments cues core and glutes Sidelying Exercises clamshell Side bilateral Reps/Minutes 15 Comments cues for no rolling hip abd Side bilateral Reps/Minutes 15 Comments cues leg position Sitting Exercises self roll out Sitting Exercise Name glute Side left Reps/Minutes 3 min Comments seated and standing vs wall Manual Therapy Treatment Consent Patient gave verbal consent for manual Yes treatment Soft Tissue Mobilization glutes Body Location L inf and lat Mobilization Type Rolling Intensity/Depth Moderate Body Position Hooklying Comments w/pt knee over PT shoulder ITB Body Location L Mobilization Type Rolling Intensity/Depth Moderate Body Position Hooklying Joint Mobilizations hip Grade II Body Position Hooklying Comments L IR free the ball c/r & inf glide c/r PT-OP-T Assessment and Plan Start: 01/24/24 18:13 Freq: Status: Active Protocol: Document 01/27/24 11:38 [facility] (Rec: 01/27/24 12:28 [facility] [id number]) Physical Therapy Assessment Goals strength Short Term Goal (STG) Pt will be indep w/HEP STG Duration 02/28 Internship Goal (LTG) Pt will score at least 3/5 on all planes LPm and at least 4+ /5 on all BLE MMT to show improved strength for greater ease w/typical daily activties . LTG Duration 04/04 activity Short Term Goal (STG) Pt will be able to stand as needed for religion and daily homemaking activities w/o pain greater than1/10 STG Duration 02/27 Internship Goal (LTG) Pt will be able to start going for neighborhood walks w/o reporting inc pain in Lhip or LE LTG Duration 04/04 balance Short Term Goal (STG) Pt will be able to do SLS for at least 20 sec on LLE to show improved balance STG Duration 02/22 Internship Goal (LTG) Pt will be able to do SLS for at least 30 sec on LLE to show improved balance LTG Duration 04/04 Assessment Summary Assessment Pt did well with exercises, reporting challenge and cueing for set up and performance. Improved hip IR and flex w/ manual care. Physical Therapy Plan Next Visit Focus/Plan Next Note Type Treatment Note Next Visit Plan manual: pelvis mobs/MET, L hip mobs, STM to piriformis and glutes and ITB, HS HEP: self roll out glute w/ tennis ball, clamshells, hip abd strength s/l, bridge, core work Leg press in clinic
--- NOTE | 2024-01-31 16:17 | PT.OTN ---
Current Diagnoses Lesion of sciatic nerve, unspecified lower limb (01/31/24) Physical Therapy Treatment Note PT-OP-A Visit Information Start: 01/24/24 18:13 Freq: Status: Active Protocol: Document 01/31/24 15:23 [facility] (Rec: 01/31/24 16:17 [facility] [id number]) Out-Patient Physical Therapy Visit Information Visit Information Visit Type Treatment Note Visit Note 3/0 Visit Start Time 15:20 Visit Stop Time 16:00 Visit Number 3 Number of MOTTLER MACHINE FEEDER Visits 0 PT-OP-B Current Condition Start: 01/24/24 18:13 Freq: Status: Active Protocol: Document 01/25/24 11:32 [facility] (Rec: 01/25/24 13:04 [facility] [id number]) Current Condition History of Current Condition Onset Date 2-3 months ago Current Complaints L hip and down lat leg History of Current Condition Pt saw doctor about a month or 2 ago and was dx w/piriformis syndrome and has done exercises from doctor. It started a few weeks before. It starts in L buttocks, and goes down the leg. Can't stand long enough w/anabaptist. Even just getting ready for a few min, gets pain. Pt lost spouse in September and feels like has gotten puney and less active . They used to walk, and hasn' t walked since. When leg starts to bother her standing still, it then it hurts to walk. Sometimes it does hurt quite a bit to walk. Tries to walk 3k steps a day. hx of oophrectomy and hysterectomy in late 30s, early 40s. in 2018 shelly had gallbladder removal. Treatment Goals Patient/Caregiver Goals be able to stand for longer, get back to walks, get back to using legs more. PT-OP-C Subjective Start: 01/24/24 18:13 Freq: Status: Active Protocol: Document 01/31/24 15:23 [facility] (Rec: 01/31/24 16:17 [facility] [id number]) OP-PT Subjective Patient Comments Patient Comments reports compliance w/exercises ; feels like she might be getting a little better PT-OP-D Balance Start: 01/24/24 18:13 Freq: Status: Active Protocol: Document 01/25/24 11:32 [facility] (Rec: 01/25/24 13:04 [facility] [id number]) Balance Tests Single Limb Standing Single Limb- Right >30 sec Single Limb- Left 14 sec-hp drop PT-OP-G Mobility & Gait Start: 01/24/24 18:13 Freq: Status: Active Protocol: Document 01/25/24 11:32 [facility] (Rec: 01/25/24 13:04 [facility] [id number]) OP Gait Assessment Comments Gait Comments dec stance time LLE w/add of LLE and dec push off LLE Stair Climbing Evaluation Comments Stair Climbing Comments recip w/rails bt dec control and strengthnoted on L up and down PT-OP-J Posture/Palpation/Skin Start: 01/24/24 18:13 Freq: Status: Active Protocol: Document 01/25/24 11:32 [facility] (Rec: 01/25/24 13:04 [facility] [id number]) Posture Evaluation Felisa Postural Classification System Lumbar Protective Mechanism Left AP 0 Lumbar Protective Mechanism Right AP 0 Lumbar Protective Mechanism Left PA 1 Lumbar Protective Mechanism Right PA 0 Comments Posture Comments inc kyphosis, falttened lordosis, L iliac crest higher , equal greater trochanter PT-OP-K Range of Motion Start: 01/24/24 18:13 Freq: Status: Active Protocol: Document 01/25/24 11:32 [facility] (Rec: 01/25/24 13:04 [facility] [id number]) Hip Goniometric Range of Motion Hip Right Active Flexion w/Knee Flexed 108 Straight Leg Raise 81 Left Active Flexion w/Knee Flexed 106 Straight Leg Raise 74 Comments tested w/opp knee bent up PT-OP-L Special Tests Start: 01/24/24 18:13 Freq: Status: Active Protocol: Document 01/25/24 11:32 [facility] (Rec: 01/25/24 13:04 [facility] [id number]) Special Tests Lumbar Spine Special Tests Slump Test Results L positive PT-OP-M Strength Start: 01/24/24 18:13 Freq: Status: Active Protocol: Document 01/25/24 11:32 [facility] (Rec: 01/25/24 13:04 [facility] [id number]) Hip Strength Hip Manual Muscle Testing Right Flexion (L2) 4+ Good+ Abduction 3+ Fair+ External Rotation 4- Good- Internal Rotation 4+ Good+ Left Flexion (L2) 4- Good- Abduction 3 Fair External Rotation 4- Good- Internal Rotation 4- Good- Knee Strength Knee Manual Muscle Testing Right Flexion (S2) 5 Normal Extension (L3) 5 Normal Left Flexion (S2) 4 Good Extension (L3) 4 Good Ankle/Foot Strength Ankle and Foot Manual Muscle Testing Right Dorsiflexion (L4) 5 Normal Plantarflexion (S1) 5 Normal Left Dorsiflexion (L4) 4+ Good+ Plantarflexion (S1) 4+ Good+ Comments PF tested seated B PT-OP-Q Treatments Start: 01/24/24 18:13 Freq: Status: Active Protocol: Document 01/31/24 15:23 [facility] (Rec: 01/31/24 16:17 [facility] [id number]) Gym Equipment Shuttle Recovery Unilateral Squats Resistance 37# ea Reps/Time 20 B Bilateral Squats Resistance 87# Reps/Time 15 Therapeutic Exercises Supine Exercises bridge Side bilateral Reps/Minutes 5 secx8 Comments cues core and glutes & segmental Sidelying Exercises clamshell Side bilateral Equipment Used lvl 1 2nd set Reps/Minutes 10 w/o resistance; 10 w/ resistance Comments cues for no rolling hip abd Side bilateral Reps/Minutes 15 Comments cues leg position Standing Exercises sit to stand Standing Exercise Name no hands Side bilateral Reps/Minutes 10 Comments cues slow and control and knees over ankles resisted walk Standing Exercise Name fwd/back Side bilateral Equipment Used lvl 1 Reps/Minutes 20ft ea sidestep Side bilateral Equipment Used lvl 1 Reps/Minutes 20ft ea Manual Therapy Treatment Consent Patient gave verbal consent for manual Yes treatment Soft Tissue Mobilization HS Body Location L Mobilization Type Rolling Comments w/active HS stretch glutes Body Location L inf and lat Mobilization Type Rolling Intensity/Depth Moderate Body Position Hooklying Comments w/pt knee over PT shoulder ITB Body Location L Mobilization Type Rolling Intensity/Depth Moderate Body Position Hooklying Joint Mobilizations hip Grade II Body Position Hooklying Comments inf glide c/r PT-OP-T Assessment and Plan Start: 01/24/24 18:13 Freq: Status: Active Protocol: Document 01/31/24 15:23 [facility] (Rec: 01/31/24 16:17 [facility] [id number]) Physical Therapy Assessment Goals strength Short Term Goal (STG) Pt will be indep w/HEP STG Duration 02/28 [facility] Goal (LTG) Pt will score at least 3/5 on all planes LPm and at least 4+ /5 on all BLE MMT to show improved strength for greater ease w/typical daily activties . LTG Duration 04/04 activity Short Term Goal (STG) Pt will be able to stand as needed for anabaptist and daily homemaking activities w/o pain greater than1/10 STG Duration 02/27 Senior Infrastructure Engineer Goal (LTG) Pt will be able to start going for neighborhood walks w/o reporting inc pain in Lhip or LE LTG Duration 04/04 balance Short Term Goal (STG) Pt will be able to do SLS for at least 20 sec on LLE to show improved balance STG Duration 02/22 [facility] Goal (LTG) Pt will be able to do SLS for at least 30 sec on LLE to show improved balance LTG Duration 04/04 Assessment Summary Assessment Pt had improved tolernace to more difficult exercises and required much less cueing today w/HEP. Pt did note some hip soreness upon leaving. Physical Therapy Plan Frequency and Duration Frequency of Treatment 2x/Week Duration of treatment (weeks) 10 Plan of Care Start Date 01/25/24 Plan of Care End Date 04/04/24 Next Visit Focus/Plan Next Note Type Treatment Note Next Visit Plan manual: pelvis mobs/MET, L hip mobs, STM to piriformis and glutes and ITB, HS HEP: self roll out glute w/ tennis ball, clamshells, hip abd strength s/l, bridge, core work Leg press in clinic
--- NOTE | 2024-02-10 09:03 | PT.OTN ---
Current Diagnoses Lesion of sciatic nerve, unspecified lower limb (02/10/24) Physical Therapy Treatment Note PT-OP-A Visit Information Start: 01/24/24 18:13 Freq: Status: Active Protocol: Document 02/10/24 08:16 [facility] (Rec: 02/10/24 09:07 [facility] [id number]) Out-Patient Physical Therapy Visit Information Visit Information Visit Type Treatment Note Visit Note 07/13 Visit Start Time 08:16 Visit Stop Time 09:03 Visit Number 4 Number of CABLE STRANDER Visits 1 PT-OP-B Current Condition Start: 01/24/24 18:13 Freq: Status: Active Protocol: Document 01/25/24 11:32 [facility] (Rec: 01/25/24 13:04 [facility] [id number]) Current Condition History of Current Condition Onset Date 2-3 months ago Current Complaints L hip and down lat leg History of Current Condition Pt saw doctor about a month or 2 ago and was dx w/piriformis syndrome and has done exercises from doctor. It started a few weeks before. It starts in L buttocks, and goes down the leg. Can't stand long enough w/taoism. Even just getting ready for a few min, gets pain. Pt lost spouse in September and feels like has gotten puney and less active . They used to walk, and hasn' t walked since. When leg starts to bother her standing still, it then it hurts to walk. Sometimes it does hurt quite a bit to walk. Tries to walk 3k steps a day. hx of oophrectomy and hysterectomy in late 30s, early 40s. in 2018 shelly had gallbladder removal. Treatment Goals Patient/Caregiver Goals be able to stand for longer, get back to walks, get back to using legs more. PT-OP-C Subjective Start: 01/24/24 18:13 Freq: Status: Active Protocol: Document 02/10/24 08:16 [facility] (Rec: 02/10/24 09:07 [facility] [id number]) OP-PT Subjective Patient Comments Patient Comments Pt reports still having pain L glut area especially weight bearing 3-07/13, compliant with HEP and self rolling for massage but sure on if helping . She reports no pain sleeping . She states standing for approx 5 min before pain starts becoming irritating and need change position/ sit down for relief. She stated is not having pain sitting anymore in taoism or watching TV. PT-OP-D Balance Start: 01/24/24 18:13 Freq: Status: Active Protocol: Document 01/25/24 11:32 [facility] (Rec: 01/25/24 13:04 [facility] [id number]) Balance Tests Single Limb Standing Single Limb- Right >30 sec Single Limb- Left 14 sec-hp drop PT-OP-G Mobility & Gait Start: 01/24/24 18:13 Freq: Status: Active Protocol: Document 01/25/24 11:32 [facility] (Rec: 01/25/24 13:04 [facility] [id number]) OP Gait Assessment Comments Gait Comments dec stance time LLE w/add of LLE and dec push off LLE Stair Climbing Evaluation Comments Stair Climbing Comments recip w/rails bt dec control and strengthnoted on L up and down PT-OP-J Posture/Palpation/Skin Start: 01/24/24 18:13 Freq: Status: Active Protocol: Document 01/25/24 11:32 [facility] (Rec: 01/25/24 13:04 [facility] [id number]) Posture Evaluation Felisa Postural Classification System Lumbar Protective Mechanism Left AP 0 Lumbar Protective Mechanism Right AP 0 Lumbar Protective Mechanism Left PA 1 Lumbar Protective Mechanism Right PA 0 Comments Posture Comments inc kyphosis, falttened lordosis, L iliac crest higher , equal greater trochanter PT-OP-K Range of Motion Start: 01/24/24 18:13 Freq: Status: Active Protocol: Document 01/25/24 11:32 [facility] (Rec: 01/25/24 13:04 [facility] [id number]) Hip Goniometric Range of Motion Hip Right Active Flexion w/Knee Flexed 108 Straight Leg Raise 81 Left Active Flexion w/Knee Flexed 106 Straight Leg Raise 74 Comments tested w/opp knee bent up PT-OP-L Special Tests Start: 01/24/24 18:13 Freq: Status: Active Protocol: Document 01/25/24 11:32 [facility] (Rec: 01/25/24 13:04 [facility] [id number]) Special Tests Lumbar Spine Special Tests Slump Test Results L positive PT-OP-M Strength Start: 01/24/24 18:13 Freq: Status: Active Protocol: Document 01/25/24 11:32 [facility] (Rec: 01/25/24 13:04 [facility] [id number]) Hip Strength Hip Manual Muscle Testing Right Flexion (L2) 4+ Good+ Abduction 3+ Fair+ External Rotation 4- Good- Internal Rotation 4+ Good+ Left Flexion (L2) 4- Good- Abduction 3 Fair External Rotation 4- Good- Internal Rotation 4- Good- Knee Strength Knee Manual Muscle Testing Right Flexion (S2) 5 Normal Extension (L3) 5 Normal Left Flexion (S2) 4 Good Extension (L3) 4 Good Ankle/Foot Strength Ankle and Foot Manual Muscle Testing Right Dorsiflexion (L4) 5 Normal Plantarflexion (S1) 5 Normal Left Dorsiflexion (L4) 4+ Good+ Plantarflexion (S1) 4+ Good+ Comments PF tested seated B PT-OP-Q Treatments Start: 01/24/24 18:13 Freq: Status: Active Protocol: Document 02/10/24 08:16 [facility] (Rec: 02/10/24 09:07 [facility] [id number]) Gym Equipment Shuttle Recovery Unilateral Squats Resistance 37# ea (navy) Reps/Time 12 L, 20 R Bilateral Squats Details cues knee alignment with midfoot Resistance 87# (2 navy, 1 teal) Reps/Time 20 Therapeutic Exercises Supine Exercises bridge Side bilateral Reps/Minutes 5 secx10 Comments cues core and glutes & segmental stretches Supine Exercise Name piriformis stretch, active HS /c AP post manual Side left Reps/Minutes 30 sec ea Sidelying Exercises hip abd Side bilateral Resistance yoga mat on table Reps/Minutes unable due to Comments cues leg position Standing Exercises sit to stand Standing Exercise Name no hands Side bilateral Reps/Minutes 10 Comments improved form resisted walk Standing Exercise Name fwd/back- added to HEP declined HO Side bilateral Equipment Used lvl 1 at shins Reps/Minutes 15 ft x2 laps Comments cued head up/tall posture, DF foot clearance sidestep Standing Exercise Name added HEP declined HO Side bilateral Equipment Used lvl 1 at shins Reps/Minutes 15 ft x2 laps Comments cued head up/tall posture, DF foot clearance Manual Therapy Treatment Consent Patient gave verbal consent for manual Yes treatment Soft Tissue Mobilization HS Body Location L Mobilization Type Rolling,Sustained Pressure, Other Comments w/active HS stretch and MWM active HS /c knee flex/ext- feedback pressure tolerance not pain. glutes Body Location L inf and lat Mobilization Type Rolling Intensity/Depth Moderate Body Position Hooklying Comments w/pt knee over PT shoulder Joint Mobilizations hip Grade II Body Position Hooklying Comments inf glide and anterior hip glide, /c hip IR/ER PT-OP-T Assessment and Plan Start: 01/24/24 18:13 Freq: Status: Active Protocol: Document 02/10/24 08:16 [facility] (Rec: 02/10/24 09:07 SP [id number]) Physical Therapy Assessment Goals strength Short Term Goal (STG) Pt will be indep w/HEP STG Duration 02/28 Group Home Goal (LTG) Pt will score at least 3/5 on all planes LPm and at least 4+ /5 on all BLE MMT to show improved strength for greater ease w/typical daily activties . LTG Duration 04/04 activity Short Term Goal (STG) Pt will be able to stand as needed for taoism and daily homemaking activities w/o pain greater than1/10 STG Duration 02/27 Group Home Goal (LTG) Pt will be able to start going for neighborhood walks w/o reporting inc pain in Lhip or LE LTG Duration 04/04 balance Short Term Goal (STG) Pt will be able to do SLS for at least 20 sec on LLE to show improved balance STG Duration 02/22 Integrated Marketing Specialist Goal (LTG) Pt will be able to do SLS for at least 30 sec on LLE to show improved balance LTG Duration 04/04 Assessment Summary Assessment Pt good response to manual, did not tolerated sidelying today with mat on table due to R hip bursitis WB irritation so held those ex. Good tiring muscle effort wtih resisted exercises today, no pain. Cues for posture and DF foot clearance during band walk no UE support added for home declined hO. Physical Therapy Plan Frequency and Duration Frequency of Treatment 2x/Week Duration of treatment (weeks) 10 Plan of Care Start Date 01/25/24 Plan of Care End Date 04/04/24 Therapeutic Interventions Therapeutic Interventions Balance Training,Gait Training ,Home Exercise Program,Joint Mobilizations,Manual Therapy, Neuromuscular Re-education, Patient/Caregiver Education, Self-Care/Home Management,Soft Tissue Mobilization,Taping, Therapeutic Activities, Therapeutic Exercises Modalities Cold Pack/Ice Massage,Electric Stimulation,Hot Packs, Ultrasound Next Visit Focus/Plan Next Note Type Treatment Note Next Visit Plan *yoga mat on table. manual: pelvis mobs/MET, L hip mobs, STM to piriformis and glutes and ITB, HS HEP: self roll out glute w/ tennis ball, clamshells, hip abd strength s/l, bridge, core work Leg press in clinic
--- NOTE | 2024-02-16 16:19 | PT.OTN ---
Current Diagnoses Lesion of sciatic nerve, unspecified lower limb (02/16/24) Physical Therapy Treatment Note PT-OP-A Visit Information Start: 01/24/24 18:13 Freq: Status: Active Protocol: Document 02/16/24 13:01 [facility] (Rec: 02/16/24 16:18 [facility] [id number]) Out-Patient Physical Therapy Visit Information Visit Information Visit Type Treatment Note Visit Note 08/12 Visit Start Time 14:56 Visit Stop Time 15:16 Visit Number 5 Number of DIRECTOR PEOPLESOFT Visits 1 PT-OP-B Current Condition Start: 01/24/24 18:13 Freq: Status: Active Protocol: Document 01/25/24 11:32 [facility] (Rec: 01/25/24 13:04 [facility] [id number]) Current Condition History of Current Condition Onset Date 2-3 months ago Current Complaints L hip and down lat leg History of Current Condition Pt saw doctor about a month or 2 ago and was dx w/piriformis syndrome and has done exercises from doctor. It started a few weeks before. It starts in L buttocks, and goes down the leg. Can't stand long enough w/anabaptism. Even just getting ready for a few min, gets pain. Pt lost spouse in September and feels like has gotten puney and less active . They used to walk, and hasn' t walked since. When leg starts to bother her standing still, it then it hurts to walk. Sometimes it does hurt quite a bit to walk. Tries to walk 3k steps a day. hx of oophrectomy and hysterectomy in late 30s, early 40s. in 2018 shelly had gallbladder removal. Treatment Goals Patient/Caregiver Goals be able to stand for longer, get back to walks, get back to using legs more. PT-OP-C Subjective Start: 01/24/24 18:13 Freq: Status: Active Protocol: Document 02/16/24 13:01 [facility] (Rec: 02/16/24 16:18 [facility] [id number]) OP-PT Subjective Patient Comments Patient Comments Patient rates pain 2/10 left LE. Patient reports she is better, has less pain, sometimes nothing at all. Patient reports standing continues to increase pain. PT-OP-D Balance Start: 01/24/24 18:13 Freq: Status: Active Protocol: Document 01/25/24 11:32 [facility] (Rec: 01/25/24 13:04 [facility] [id number]) Balance Tests Single Limb Standing Single Limb- Right >30 sec Single Limb- Left 14 sec-hp drop PT-OP-G Mobility & Gait Start: 01/24/24 18:13 Freq: Status: Active Protocol: Document 01/25/24 11:32 [facility] (Rec: 01/25/24 13:04 [facility] [id number]) OP Gait Assessment Comments Gait Comments dec stance time LLE w/add of LLE and dec push off LLE Stair Climbing Evaluation Comments Stair Climbing Comments recip w/rails bt dec control and strengthnoted on L up and down PT-OP-J Posture/Palpation/Skin Start: 01/24/24 18:13 Freq: Status: Active Protocol: Document 01/25/24 11:32 [facility] (Rec: 01/25/24 13:04 [facility] [id number]) Posture Evaluation Felisa Postural Classification System Lumbar Protective Mechanism Left AP 0 Lumbar Protective Mechanism Right AP 0 Lumbar Protective Mechanism Left PA 1 Lumbar Protective Mechanism Right PA 0 Comments Posture Comments inc kyphosis, falttened lordosis, L iliac crest higher , equal greater trochanter PT-OP-K Range of Motion Start: 01/24/24 18:13 Freq: Status: Active Protocol: Document 01/25/24 11:32 [facility] (Rec: 01/25/24 13:04 [facility] [id number]) Hip Goniometric Range of Motion Hip Right Active Flexion w/Knee Flexed 108 Straight Leg Raise 81 Left Active Flexion w/Knee Flexed 106 Straight Leg Raise 74 Comments tested w/opp knee bent up PT-OP-L Special Tests Start: 01/24/24 18:13 Freq: Status: Active Protocol: Document 01/25/24 11:32 [facility] (Rec: 01/25/24 13:04 [facility] [id number]) Special Tests Lumbar Spine Special Tests Slump Test Results L positive PT-OP-M Strength Start: 01/24/24 18:13 Freq: Status: Active Protocol: Document 01/25/24 11:32 [facility] (Rec: 01/25/24 13:04 [facility] [id number]) Hip Strength Hip Manual Muscle Testing Right Flexion (L2) 4+ Good+ Abduction 3+ Fair+ External Rotation 4- Good- Internal Rotation 4+ Good+ Left Flexion (L2) 4- Good- Abduction 3 Fair External Rotation 4- Good- Internal Rotation 4- Good- Knee Strength Knee Manual Muscle Testing Right Flexion (S2) 5 Normal Extension (L3) 5 Normal Left Flexion (S2) 4 Good Extension (L3) 4 Good Ankle/Foot Strength Ankle and Foot Manual Muscle Testing Right Dorsiflexion (L4) 5 Normal Plantarflexion (S1) 5 Normal Left Dorsiflexion (L4) 4+ Good+ Plantarflexion (S1) 4+ Good+ Comments PF tested seated B PT-OP-Q Treatments Start: 01/24/24 18:13 Freq: Status: Active Protocol: Document 02/16/24 13:01 [facility] (Rec: 02/16/24 16:18 AB [id number]) Therapeutic Exercises Supine Exercises stretches Supine Exercise Name 1. piriformis 2 figure 4 3. Modified Jb one LE on bolster * one on mat Reps/Minutes 60 sec each Jb stretch 30for Comments * on bolster with folded pillow Manual Therapy Treatment Consent Patient gave verbal consent for manual Yes treatment Soft Tissue Mobilization hip flexors at groin Body Location Bilateral Mobilization Type Cross-Friction,Rolling Intensity/Depth Moderate Body Position Hooklying glutes Body Location B glute/ piriformis area Mobilization Type Cross-Friction,Rolling Intensity/Depth Moderate Body Position Hooklying Manual Techniques MET for right AI left PI Type and pubic shotgun Reps/Duration 6 sec X 6 each LE PT-OP-T Assessment and Plan Start: 01/24/24 18:13 Freq: Status: Active Protocol: Document 02/16/24 13:01 [facility] (Rec: 02/16/24 16:18 AB [id number]) Physical Therapy Assessment Goals strength Short Term Goal (STG) Pt will be indep w/HEP STG Duration 02/28 Cylindrical Mixer Goal (LTG) Pt will score at least 3/5 on all planes LPm and at least 4+ /5 on all BLE MMT to show improved strength for greater ease w/typical daily activties . LTG Duration 04/04 activity Short Term Goal (STG) Pt will be able to stand as needed for anabaptism and daily homemaking activities w/o pain greater than1/10 STG Duration 02/27 Cylindrical Mixer Goal (LTG) Pt will be able to start going for neighborhood walks w/o reporting inc pain in Lhip or LE LTG Duration 04/04 balance Short Term Goal (STG) Pt will be able to do SLS for at least 20 sec on LLE to show improved balance STG Duration 02/22 Cylindrical Mixer Goal (LTG) Pt will be able to do SLS for at least 30 sec on LLE to show improved balance LTG Duration 04/04 Assessment Summary Assessment Patient rates pain less than 2 /10 L LE ambulating out of session without device. Increased muscle density, decreased muscle moblity left hip flexor with areas of tender to palpation this session. Physical Therapy Plan Frequency and Duration Frequency of Treatment 2x/Week Duration of treatment (weeks) 10 Plan of Care Start Date 01/25/24 Plan of Care End Date 04/04/24 Next Visit Focus/Plan Next Note Type Treatment Note Next Visit Plan *yoga mat on table. manual: pelvis mobs/MET, L hip mobs, STM to piriformis and glutes and ITB, HS HEP: self roll out glute w/ tennis ball, clamshells, hip abd strength s/l, bridge, core work Leg press in clinic
--- NOTE | 2024-02-18 16:29 | PT.OTN ---
Current Diagnoses Lesion of sciatic nerve, unspecified lower limb (02/18/24) Physical Therapy Treatment Note PT-OP-A Visit Information Start: 01/24/24 18:13 Freq: Status: Active Protocol: Document 02/18/24 13:00 AB (Rec: 02/18/24 16:13 AB [id number]) Out-Patient Physical Therapy Visit Information Visit Information Visit Type Treatment Note Visit Note 09/12 Access Code: [email or web address] Visit Start Time 15:19 Visit Stop Time 16:09 Visit Number 6 Number of PRIMARY CARE PEDIATRICIAN Visits 3 PT-OP-B Current Condition Start: 01/24/24 18:13 Freq: Status: Active Protocol: Document 01/25/24 11:32 [facility] (Rec: 01/25/24 13:04 [facility] [id number]) Current Condition History of Current Condition Onset Date 2-3 months ago Current Complaints L hip and down lat leg History of Current Condition Pt saw doctor about a month or 2 ago and was dx w/piriformis syndrome and has done exercises from doctor. It started a few weeks before. It starts in L buttocks, and goes down the leg. 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 Even just getting ready for a few min, gets pain. Pt lost spouse in September and feels like has gotten puney and less active . They used to walk, and hasn' t walked since. When leg starts to bother her standing still, it then it hurts to walk. Sometimes it does hurt quite a bit to walk. Tries to walk 3k steps a day. hx of oophrectomy and hysterectomy in late 30s, early 40s. in 2017 shelly had gallbladder removal. Treatment Goals Patient/Caregiver Goals be able to stand for longer, get back to walks, get back to using legs more. PT-OP-C Subjective Start: 01/24/24 18:13 Freq: Status: Active Protocol: Document 02/18/24 13:00 AB (Rec: 02/18/24 16:13 AB [id number]) OP-PT Subjective Patient Comments Patient Comments Patient rates pain 2/10 left LE. Patient reports she was able to work the stairs better post previous session, but it didn't last until today. PT-OP-D Balance Start: 01/24/24 18:13 Freq: Status: Active Protocol: Document 01/25/24 11:32 LR (Rec: 01/25/24 13:04 [facility] [id number]) Balance Tests Single Limb Standing Single Limb- Right >30 sec Single Limb- Left 14 sec-hp drop PT-OP-G Mobility & Gait Start: 01/24/24 18:13 Freq: Status: Active Protocol: Document 01/25/24 11:32 [facility] (Rec: 01/25/24 13:04 [facility] [id number]) OP Gait Assessment Comments Gait Comments dec stance time LLE w/add of LLE and dec push off LLE Stair Climbing Evaluation Comments Stair Climbing Comments recip w/rails bt dec control and strengthnoted on L up and down PT-OP-J Posture/Palpation/Skin Start: 01/24/24 18:13 Freq: Status: Active Protocol: Document 01/25/24 11:32 [facility] (Rec: 01/25/24 13:04 [facility] [id number]) Posture Evaluation Felisa Postural Classification System Lumbar Protective Mechanism Left AP 0 Lumbar Protective Mechanism Right AP 0 Lumbar Protective Mechanism Left PA 1 Lumbar Protective Mechanism Right PA 0 Comments Posture Comments inc kyphosis, falttened lordosis, L iliac crest higher , equal greater trochanter PT-OP-K Range of Motion Start: 01/24/24 18:13 Freq: Status: Active Protocol: Document 01/25/24 11:32 [facility] (Rec: 01/25/24 13:04 [facility] [id number]) Hip Goniometric Range of Motion Hip Right Active Flexion w/Knee Flexed 108 Straight Leg Raise 81 Left Active Flexion w/Knee Flexed 106 Straight Leg Raise 74 Comments tested w/opp knee bent up PT-OP-L Special Tests Start: 01/24/24 18:13 Freq: Status: Active Protocol: Document 01/25/24 11:32 [facility] (Rec: 01/25/24 13:04 [facility] [id number]) Special Tests Lumbar Spine Special Tests Slump Test Results L positive PT-OP-M Strength Start: 01/24/24 18:13 Freq: Status: Active Protocol: Document 01/25/24 11:32 [facility] (Rec: 01/25/24 13:04 [facility] [id number]) Hip Strength Hip Manual Muscle Testing Right Flexion (L2) 4+ Good+ Abduction 3+ Fair+ External Rotation 4- Good- Internal Rotation 4+ Good+ Left Flexion (L2) 4- Good- Abduction 3 Fair External Rotation 4- Good- Internal Rotation 4- Good- Knee Strength Knee Manual Muscle Testing Right Flexion (S2) 5 Normal Extension (L3) 5 Normal Left Flexion (S2) 4 Good Extension (L3) 4 Good Ankle/Foot Strength Ankle and Foot Manual Muscle Testing Right Dorsiflexion (L4) 5 Normal Plantarflexion (S1) 5 Normal Left Dorsiflexion (L4) 4+ Good+ Plantarflexion (S1) 4+ Good+ Comments PF tested seated B PT-OP-Q Treatments Start: 01/24/24 18:13 Freq: Status: Active Protocol: Document 02/18/24 13:00 AB (Rec: 02/18/24 16:13 AB [id number]) Gym Equipment Shuttle Recovery Bilateral Squats Resistance 2 teal one navy 87# Reps/Time 15X2 Therapeutic Exercises Supine Exercises stretches Supine Exercise Name 1. piriformis 2 figure 4 3. Modified Jb one LE on bolster * one on mat Reps/Minutes 60 sec each Jb stretch 30for Comments * on bolster with folded pillow Sidelying Exercises seated hip abd with band Sidelying Exercise Name HEP Side bilateral Resistance the [place] Reps/Minutes one minute hold X1 Comments verbal cues Manual Therapy Treatment Soft Tissue Mobilization hip flexors at groin Body Location Bilateral Mobilization Type Cross-Friction,Rolling Intensity/Depth Moderate Body Position Hooklying HS Body Location bilateral Mobilization Type Cross-Friction,Rolling glutes Body Location B glute/ piriformis area Mobilization Type Cross-Friction,Rolling Intensity/Depth Moderate Body Position Hooklying Manual Techniques MET for right AI left PI Type and pubic shotgun Reps/Duration 6 sec X 6 each LE PT-OP-T Assessment and Plan Start: 01/24/24 18:13 Freq: Status: Active Protocol: Document 02/18/24 13:00 AB (Rec: 02/18/24 16:13 AB [id number]) Physical Therapy Assessment Goals strength Short Term Goal (STG) Pt will be indep w/HEP STG Duration 02/28 Residential Goal (LTG) Pt will score at least 3/5 on all planes LPm and at least 4+ /5 on all BLE MMT to show improved strength for greater ease w/typical daily activties . LTG Duration 04/04 activity Short Term Goal (STG) Pt will be able to stand as needed for scientology and daily homemaking activities w/o pain greater than04/14 STG Duration 02/27 [employer] Goal (LTG) Pt will be able to start going for neighborhood walks w/o reporting inc pain in Lhip or LE LTG Duration 04/04 balance Short Term Goal (STG) Pt will be able to do SLS for at least 20 sec on LLE to show improved balance STG Duration 02/22 Residential Goal (LTG) Pt will be able to do SLS for at least 30 sec on LLE to show improved balance LTG Duration 04/04 Assessment Summary Assessment Patient rates left hip and back pain 04/14 end of session ambulating out of session without device. Physical Therapy Plan Frequency and Duration Frequency of Treatment 2x/Week Duration of treatment (weeks) 10 Plan of Care Start Date 01/25/24 Plan of Care End Date 04/04/24 Next Visit Focus/Plan Next Note Type Treatment Note Next Visit Plan *yoga mat on table. manual: pelvis mobs/MET, L hip mobs, STM to piriformis and glutes and ITB, HS HEP: self roll out glute w/ tennis ball, clamshells, hip abd strength s/l, bridge, core work Leg press in clinic
--- NOTE | 2024-02-22 18:11 | PT.OTN ---
Current Diagnoses Lesion of sciatic nerve, unspecified lower limb (02/22/24) Physical Therapy Treatment Note PT-OP-A Visit Information Start: 01/24/24 18:13 Freq: Status: Active Protocol: Document 02/22/24 17:03 [facility] (Rec: 02/22/24 18:11 [facility] [id number]) Out-Patient Physical Therapy Visit Information Visit Information Visit Type Progress Note Visit Note 10/12 Access Code: [email or web address] Visit Start Time 17:05 Visit Stop Time 17:45 Visit Number 7 Number of LDR RN Visits 0 PT-OP-B Current Condition Start: 01/24/24 18:13 Freq: Status: Active Protocol: Document 01/25/24 11:32 [facility] (Rec: 01/25/24 13:04 [facility] [id number]) Current Condition History of Current Condition Onset Date 2-3 months ago Current Complaints L hip and down lat leg History of Current Condition Pt saw doctor about a month or 2 ago and was dx w/piriformis syndrome and has done exercises from doctor. It started a few weeks before. It starts in L buttocks, and goes down the leg. Can't stand long enough w/adventist. Even just getting ready for a few min, gets pain. Pt lost spouse in September and feels like has gotten puney and less active . They used to walk, and hasn' t walked since. When leg starts to bother her standing still, it then it hurts to walk. Sometimes it does hurt quite a bit to walk. Tries to walk 3k steps a day. hx of oophrectomy and hysterectomy in late 30s, early 40s. in 2017 shelly had gallbladder removal. Treatment Goals Patient/Caregiver Goals be able to stand for longer, get back to walks, get back to using legs more. PT-OP-C Subjective Start: 01/24/24 18:13 Freq: Status: Active Protocol: Document 02/22/24 17:03 [facility] (Rec: 02/22/24 18:11 [facility] [id number]) OP-PT Subjective Patient Comments Patient Comments pt reports she feels like she is overall better but still can't stand longer than 5 min for adventist Patient Reported Progress Improving PT-OP-D Balance Start: 01/24/24 18:13 Freq: Status: Active Protocol: Document 02/22/24 17:03 [facility] (Rec: 02/22/24 18:11 [facility] [id number]) Balance Tests Single Limb Standing Single Limb- Left 24 sec PT-OP-G Mobility & Gait Start: 01/24/24 18:13 Freq: Status: Active Protocol: Document 01/25/24 11:32 [facility] (Rec: 01/25/24 13:04 [facility] [id number]) OP Gait Assessment Comments Gait Comments dec stance time LLE w/add of LLE and dec push off LLE Stair Climbing Evaluation Comments Stair Climbing Comments recip w/rails bt dec control and strengthnoted on L up and down PT-OP-J Posture/Palpation/Skin Start: 01/24/24 18:13 Freq: Status: Active Protocol: Document 01/25/24 11:32 [facility] (Rec: 01/25/24 13:04 [facility] [id number]) Posture Evaluation Felisa Postural Classification System Lumbar Protective Mechanism Left AP 0 Lumbar Protective Mechanism Right AP 0 Lumbar Protective Mechanism Left PA 1 Lumbar Protective Mechanism Right PA 0 Comments Posture Comments inc kyphosis, falttened lordosis, L iliac crest higher , equal greater trochanter PT-OP-K Range of Motion Start: 01/24/24 18:13 Freq: Status: Active Protocol: Document 01/25/24 11:32 [facility] (Rec: 01/25/24 13:04 [facility] [id number]) Hip Goniometric Range of Motion Hip Right Active Flexion w/Knee Flexed 108 Straight Leg Raise 81 Left Active Flexion w/Knee Flexed 106 Straight Leg Raise 74 Comments tested w/opp knee bent up PT-OP-L Special Tests Start: 01/24/24 18:13 Freq: Status: Active Protocol: Document 01/25/24 11:32 [facility] (Rec: 01/25/24 13:04 [facility] [id number]) Special Tests Lumbar Spine Special Tests Slump Test Results L positive PT-OP-M Strength Start: 01/24/24 18:13 Freq: Status: Active Protocol: Document 02/22/24 17:03 [facility] (Rec: 02/22/24 18:11 [facility] [id number]) Hip Strength Hip Manual Muscle Testing Right Flexion (L2) 4+ Good+ Abduction 4- Good- External Rotation 4 Good Internal Rotation 4+ Good+ Left Flexion (L2) 4 Good Abduction 3+ Fair+ External Rotation 4 Good Internal Rotation 4 Good Knee Strength Knee Manual Muscle Testing Right Flexion (S2) 5 Normal Extension (L3) 5 Normal Left Flexion (S2) 4+ Good+ Extension (L3) 4+ Good+ Ankle/Foot Strength Ankle and Foot Manual Muscle Testing Right Dorsiflexion (L4) 5 Normal Plantarflexion (S1) 5 Normal Left Dorsiflexion (L4) 5 Normal Plantarflexion (S1) 5 Normal Comments PF tested seated B PT-OP-Q Treatments Start: 01/24/24 18:13 Freq: Status: Active Protocol: Document 02/22/24 17:03 [facility] (Rec: 02/22/24 18:11 [facility] [id number]) Therapeutic Exercises Sitting Exercises stretch Sitting Exercise Name 1. piriformis knee to opps chest 2. HS 3. figure 4 Side left Reps/Minutes 45 sec ea Comments slight relief Standing Exercises ITB Standing Exercise Name stretch Side left Reps/Minutes 30 sec Comments worsened pain ROM Standing Exercise Name 1. ext 2. L SB Reps/Minutes 12 ea Comments no change in leg pain garrett pose Standing Exercise Name hands on bar Side bilateral Reps/Minutes 30 sec Comments no change in leg pain paloff press Side bilateral Equipment Used 2 peach bands Reps/Minutes 10 ea Comments inc leg pain after 1st side Manual Therapy Treatment Consent Patient gave verbal consent for manual Yes treatment Soft Tissue Mobilization lumbar Body Location L ES and QL w/post dep Mobilization Type Rolling Intensity/Depth Moderate Body Position Sidelying Joint Mobilizations sacrum Grade II Body Position Sitting Comments PA sacrum w/pelvic tilts lumbar Grade II Body Position Sitting Comments down glide R L4 and 5 PT-OP-T Assessment and Plan Start: 01/24/24 18:13 Freq: Status: Active Protocol: Document 02/22/24 17:03 [facility] (Rec: 02/22/24 18:11 [facility] [id number]) Physical Therapy Assessment Goals strength Short Term Goal (STG) Pt will be indep w/HEP STG Duration achieved advancing as able [place] Block Setter Goal (LTG) Pt will score at least 3/5 on all planes LPm and at least 4+ /5 on all BLE MMT to show improved strength for greater ease w/typical daily activties . 02/21-imprvoing LTG Duration 04/04 activity Short Term Goal (STG) Pt will be able to stand as needed for adventist and daily homemaking activities w/o pain greater than1/10 11/19-stands about 5 min at adventist then has to sit back down STG Duration 02/27 [facility] Goal (LTG) Pt will be able to start going for neighborhood walks w/o reporting inc pain in Lhip or LE 02/21-started walking indoors w/a group and is progressing inc distance. no pain in leg LTG Duration 04/04 balance Short Term Goal (STG) Pt will be able to do SLS for at least 20 sec on LLE to show improved balance STG Duration achieved 02/21 [facility] Goal (LTG) Pt will be able to do SLS for at least 30 sec on LLE to show improved balance 02/21-24 sec LTG Duration 04/04 Assessment Summary Assessment Pt has made progress w/PT and feels like pain is less tahn when started but is still limited with standing. Has been able to start walking class and is doing more at home along w/showing strength and balance gains. She had pain down leg w/RSB but unable to elicit w/o other spinal motions or hip motions. She improed ability to R SB w/o pain after manual. W/paloff press had inc pain and was unable to relieve w/stretches. Cont PT to work on dec leg pain and improve standing tolerance Physical Therapy Plan Frequency and Duration Frequency of Treatment 2x/Week Duration of treatment (weeks) 10 Plan of Care Start Date 01/25/24 Plan of Care End Date 04/04/24 Therapeutic Interventions Therapeutic Interventions Balance Training,Gait Training ,Home Exercise Program,Joint Mobilizations,Manual Therapy, Neuromuscular Re-education, Patient/Caregiver Education, Self-Care/Home Management,Soft Tissue Mobilization,Taping, Therapeutic Activities, Therapeutic Exercises Modalities Cold Pack/Ice Massage,Electric Stimulation,Hot Packs, Ultrasound Next Visit Focus/Plan Next Note Type Treatment Note Next Visit Plan *yoga mat on table. manual: pelvis mobs/MET, L hip mobs, STM to piriformis and glutes and ITB, HS HEP: self roll out glute w/ tennis ball, clamshells, hip abd strength s/l, bridge, core work Leg press in clinic
--- NOTE | 2024-02-25 14:31 | PT.OTN ---
Current Diagnoses Lesion of sciatic nerve, unspecified lower limb (02/25/24) Physical Therapy Treatment Note PT-OP-A Visit Information Start: 01/24/24 18:13 Freq: Status: Active Protocol: Document 02/25/24 13:10 AB (Rec: 02/25/24 14:31 AB [id number]) Out-Patient Physical Therapy Visit Information Visit Information Visit Type Treatment Note Visit Note 11/12 Access Code: [email or web address] Visit Start Time 13:46 Visit Stop Time 14:30 Visit Number 8 Number of FLOOR COVERINGS SALESPERSON Visits 1 PT-OP-B Current Condition Start: 01/24/24 18:13 Freq: Status: Active Protocol: Document 01/25/24 11:32 [facility] (Rec: 01/25/24 13:04 [facility] [id number]) Current Condition History of Current Condition Onset Date 2-3 months ago Current Complaints L hip and down lat leg History of Current Condition Pt saw doctor about a month or 2 ago and was dx w/piriformis syndrome and has done exercises from doctor. It started a few weeks before. It starts in L buttocks, and goes down the leg. Can't stand long enough w/religious. Even just getting ready for a few min, gets pain. Pt lost spouse in September and feels like has gotten puney and less active . They used to walk, and hasn' t walked since. When leg starts to bother her standing still, it then it hurts to walk. Sometimes it does hurt quite a bit to walk. Tries to walk 3k steps a day. hx of oophrectomy and hysterectomy in late 30s, early 40s. in 2018 shelly had gallbladder removal. Treatment Goals Patient/Caregiver Goals be able to stand for longer, get back to walks, get back to using legs more. PT-OP-C Subjective Start: 01/24/24 18:13 Freq: Status: Active Protocol: Document 02/25/24 13:10 AB (Rec: 02/25/24 14:31 AB [id number]) OP-PT Subjective Patient Comments Patient Comments Patient reports having radiating left LE pain after taking the exercise class at the [facility], comments one exercises bothered at the start of it and she stopped that exercise. ( functional fitness) Patient reports when standing to fix hair she can stand longer before pain increases. PT-OP-D Balance Start: 01/24/24 18:13 Freq: Status: Active Protocol: Document 02/22/24 17:03 [facility] (Rec: 02/22/24 18:11 [facility] [id number]) Balance Tests Single Limb Standing Single Limb- Left 24 sec PT-OP-G Mobility & Gait Start: 01/24/24 18:13 Freq: Status: Active Protocol: Document 01/25/24 11:32 [facility] (Rec: 01/25/24 13:04 [facility] [id number]) OP Gait Assessment Comments Gait Comments dec stance time LLE w/add of LLE and dec push off LLE Stair Climbing Evaluation Comments Stair Climbing Comments recip w/rails bt dec control and strengthnoted on L up and down PT-OP-J Posture/Palpation/Skin Start: 01/24/24 18:13 Freq: Status: Active Protocol: Document 01/25/24 11:32 [facility] (Rec: 01/25/24 13:04 [facility] [id number]) Posture Evaluation Felisa Postural Classification System Lumbar Protective Mechanism Left AP 0 Lumbar Protective Mechanism Right AP 0 Lumbar Protective Mechanism Left PA 1 Lumbar Protective Mechanism Right PA 0 Comments Posture Comments inc kyphosis, falttened lordosis, L iliac crest higher , equal greater trochanter PT-OP-K Range of Motion Start: 01/24/24 18:13 Freq: Status: Active Protocol: Document 01/25/24 11:32 [facility] (Rec: 01/25/24 13:04 [facility] [id number]) Hip Goniometric Range of Motion Hip Right Active Flexion w/Knee Flexed 108 Straight Leg Raise 81 Left Active Flexion w/Knee Flexed 106 Straight Leg Raise 74 Comments tested w/opp knee bent up PT-OP-L Special Tests Start: 01/24/24 18:13 Freq: Status: Active Protocol: Document 01/25/24 11:32 [facility] (Rec: 01/25/24 13:04 [facility] [id number]) Special Tests Lumbar Spine Special Tests Slump Test Results L positive PT-OP-M Strength Start: 01/24/24 18:13 Freq: Status: Active Protocol: Document 02/22/24 17:03 [facility] (Rec: 02/22/24 18:11 [facility] [id number]) Hip Strength Hip Manual Muscle Testing Right Flexion (L2) 4+ Good+ Abduction 4- Good- External Rotation 4 Good Internal Rotation 4+ Good+ Left Flexion (L2) 4 Good Abduction 3+ Fair+ External Rotation 4 Good Internal Rotation 4 Good Knee Strength Knee Manual Muscle Testing Right Flexion (S2) 5 Normal Extension (L3) 5 Normal Left Flexion (S2) 4+ Good+ Extension (L3) 4+ Good+ Ankle/Foot Strength Ankle and Foot Manual Muscle Testing Right Dorsiflexion (L4) 5 Normal Plantarflexion (S1) 5 Normal Left Dorsiflexion (L4) 5 Normal Plantarflexion (S1) 5 Normal Comments PF tested seated B PT-OP-Q Treatments Start: 01/24/24 18:13 Freq: Status: Active Protocol: Document 02/25/24 13:10 AB (Rec: 02/25/24 14:31 AB [id number]) Therapeutic Exercises Supine Exercises stretches Supine Exercise Name 1. piriformis 2 figure 4 3. Modified Jb one LE on bolster * one on mat Reps/Minutes 60 sec each Jb stretch 30for Comments * on bolster with folded pillow Sidelying Exercises seated hip abd with band Sidelying Exercise Name HEP Side bilateral Resistance the [place] Reps/Minutes one minute hold X1 Comments verbal cues clamshell Side bilateral Equipment Used lvl 1 2nd set Reps/Minutes X12 Comments back to wall hip abd Side bilateral Resistance yoga mat on table Reps/Minutes X12 Comments back to wall Manual Therapy Treatment Consent Patient gave verbal consent for manual Yes treatment Soft Tissue Mobilization lumbar Body Location QL and lumbar paraspinals Mobilization Type Cross-Friction,Rolling, Sustained Pressure Intensity/Depth Moderate Body Position Sidelying hip flexors at groin Body Location Bilateral Mobilization Type Cross-Friction,Rolling Intensity/Depth Moderate Body Position Hooklying glutes Body Location B glute/ piriformis area Mobilization Type Cross-Friction,Rolling Intensity/Depth Moderate Body Position Hooklying Joint Mobilizations hip Grade II Body Position Hooklying Comments inf glide PT-OP-T Assessment and Plan Start: 01/24/24 18:13 Freq: Status: Active Protocol: Document 02/25/24 13:10 AB (Rec: 02/25/24 14:31 AB [id number]) Physical Therapy Assessment Goals strength Short Term Goal (STG) Pt will be indep w/HEP STG Duration achieved advancing as able Building Analyst/Supervisor Goal (LTG) Pt will score at least 3/5 on all planes LPm and at least 4+ /5 on all BLE MMT to show improved strength for greater ease w/typical daily activties . 02/21-imprvoing LTG Duration 04/04 activity Short Term Goal (STG) Pt will be able to stand as needed for religious and daily homemaking activities w/o pain greater than/10 02/21-stands about 5 min at religious then has to sit back down STG Duration 02/27 Building Analyst/Supervisor Goal (LTG) Pt will be able to start going for neighborhood walks w/o reporting inc pain in Lhip or LE 02/21-started walking indoors w/a group and is progressing inc distance. no pain in leg LTG Duration 04/04 balance Short Term Goal (STG) Pt will be able to do SLS for at least 20 sec on LLE to show improved balance STG Duration achieved 02/21 Building Analyst/Supervisor Goal (LTG) Pt will be able to do SLS for at least 30 sec on LLE to show improved balance 02/21-24 sec LTG Duration 04/04 Assessment Summary Assessment Ese rates left LE pain 1- end of session and comments it is no longer in her calf. Physical Therapy Plan Frequency and Duration Frequency of Treatment 2x/Week Duration of treatment (weeks) 10 Plan of Care Start Date 01/25/24 Plan of Care End Date 04/04/24 Next Visit Focus/Plan Next Note Type Treatment Note Next Visit Plan *yoga mat on table. manual: pelvis mobs/MET, L hip mobs, STM to piriformis and glutes and ITB, HS HEP: self roll out glute w/ tennis ball, clamshells, hip abd strength s/l, bridge, core work Leg press in clinic
--- NOTE | 2024-02-29 16:29 | PT.OTN ---
Current Diagnoses Lesion of sciatic nerve, unspecified lower limb (02/29/24) Physical Therapy Treatment Note PT-OP-A Visit Information Start: 01/24/24 18:13 Freq: Status: Active Protocol: Document 02/29/24 12:58 AB (Rec: 02/29/24 16:29 AB [id number]) Out-Patient Physical Therapy Visit Information Visit Information Visit Type Treatment Note Visit Note 12/13 [id number] Visit Start Time 13:49 Visit Stop Time 14:33 Visit Number 9 Number of LANDING SIGNAL OFFICER Visits 2 PT-OP-B Current Condition Start: 01/24/24 18:13 Freq: Status: Active Protocol: Document 01/25/24 11:32 LR (Rec: 01/25/24 13:04 [facility] [id number]) Current Condition History of Current Condition Onset Date 2-3 months ago Current Complaints L hip and down lat leg History of Current Condition Pt saw doctor about a month or 2 ago and was dx w/piriformis syndrome and has done exercises from doctor. It started a few weeks before. It starts in L buttocks, and goes down the leg. Can't stand long enough w/baptism. Even just getting ready for a few min, gets pain. Pt lost spouse in September and feels like has gotten puney and less active . They used to walk, and hasn' t walked since. When leg starts to bother her standing still, it then it hurts to walk. Sometimes it does hurt quite a bit to walk. Tries to walk 3k steps a day. hx of oophrectomy and hysterectomy in late 30s, early 40s. in 2018 shelly had gallbladder removal. Treatment Goals Patient/Caregiver Goals be able to stand for longer, get back to walks, get back to using legs more. PT-OP-C Subjective Start: 01/24/24 18:13 Freq: Status: Active Protocol: Document 02/29/24 12:58 AB (Rec: 02/29/24 16:29 AB [id number]) OP-PT Subjective Patient Comments Patient Comments Patient rates left SI pain to ankle 2-3/10 had to take Tylenol yesterday. Patient reports she has had the pain since taking the exercise class at the [employer] center. Decreased PROM bilateral hip ER R>L PT-OP-D Balance Start: 01/24/24 18:13 Freq: Status: Active Protocol: Document 02/22/24 17:03 [facility] (Rec: 02/22/24 18:11 [facility] [id number]) Balance Tests Single Limb Standing Single Limb- Left 24 sec PT-OP-G Mobility & Gait Start: 01/24/24 18:13 Freq: Status: Active Protocol: Document 01/25/24 11:32 [facility] (Rec: 01/25/24 13:04 [facility] [id number]) OP Gait Assessment Comments Gait Comments dec stance time LLE w/add of LLE and dec push off LLE Stair Climbing Evaluation Comments Stair Climbing Comments recip w/rails bt dec control and strengthnoted on L up and down PT-OP-J Posture/Palpation/Skin Start: 01/24/24 18:13 Freq: Status: Active Protocol: Document 01/25/24 11:32 [facility] (Rec: 01/25/24 13:04 [facility] [id number]) Posture Evaluation Felisa Postural Classification System Lumbar Protective Mechanism Left AP 0 Lumbar Protective Mechanism Right AP 0 Lumbar Protective Mechanism Left PA 1 Lumbar Protective Mechanism Right PA 0 Comments Posture Comments inc kyphosis, falttened lordosis, L iliac crest higher , equal greater trochanter PT-OP-K Range of Motion Start: 01/24/24 18:13 Freq: Status: Active Protocol: Document 01/25/24 11:32 [facility] (Rec: 01/25/24 13:04 [facility] [id number]) Hip Goniometric Range of Motion Hip Right Active Flexion w/Knee Flexed 108 Straight Leg Raise 81 Left Active Flexion w/Knee Flexed 106 Straight Leg Raise 74 Comments tested w/opp knee bent up PT-OP-L Special Tests Start: 01/24/24 18:13 Freq: Status: Active Protocol: Document 01/25/24 11:32 [facility] (Rec: 01/25/24 13:04 [facility] [id number]) Special Tests Lumbar Spine Special Tests Slump Test Results L positive PT-OP-M Strength Start: 01/24/24 18:13 Freq: Status: Active Protocol: Document 02/22/24 17:03 [facility] (Rec: 02/22/24 18:11 [facility] [id number]) Hip Strength Hip Manual Muscle Testing Right Flexion (L2) 4+ Good+ Abduction 4- Good- External Rotation 4 Good Internal Rotation 4+ Good+ Left Flexion (L2) 4 Good Abduction 3+ Fair+ External Rotation 4 Good Internal Rotation 4 Good Knee Strength Knee Manual Muscle Testing Right Flexion (S2) 5 Normal Extension (L3) 5 Normal Left Flexion (S2) 4+ Good+ Extension (L3) 4+ Good+ Ankle/Foot Strength Ankle and Foot Manual Muscle Testing Right Dorsiflexion (L4) 5 Normal Plantarflexion (S1) 5 Normal Left Dorsiflexion (L4) 5 Normal Plantarflexion (S1) 5 Normal Comments PF tested seated B PT-OP-Q Treatments Start: 01/24/24 18:13 Freq: Status: Active Protocol: Document 02/29/24 12:58 AB (Rec: 02/29/24 16:29 AB [id number]) Therapeutic Exercises Supine Exercises abdominal bracing Supine Exercise Name 1. with LE extension 2. fall out Side bilateral Reps/Minutes X10 each Comments verbal cues stretches Supine Exercise Name figure 4 2. Modified Jb one LE on bolster * one on mat Side bilateral Reps/Minutes 60 sec X 2 each LE fig 4 X1 Mod Jacques Comments * on bolster with folded pillow Standing Exercises sit to stand Standing Exercise Name raised seat height Side bilateral Resistance level 2 band tied above knees Reps/Minutes 10 Comments close supervision Manual Therapy Treatment Soft Tissue Mobilization hip flexors at groin Body Location Bilateral Mobilization Type Cross-Friction,Rolling Intensity/Depth Moderate Body Position Hooklying glutes Body Location B glute/ piriformis area Mobilization Type Cross-Friction,Rolling Intensity/Depth Moderate Body Position Hooklying Manual Techniques MET for right AI left PI Type left PI right AI and pubic shotgun Reps/Duration 6 X 6 each Comments left foot into mat ( from hooklying ) right manual resistance into hip flexion PT-OP-T Assessment and Plan Start: 01/24/24 18:13 Freq: Status: Active Protocol: Document 02/29/24 12:58 AB (Rec: 02/29/24 16:29 AB [id number]) Physical Therapy Assessment Goals strength Short Term Goal (STG) Pt will be indep w/HEP STG Duration achieved advancing as able Mcc Goal (LTG) Pt will score at least 3/5 on all planes LPm and at least 4+ /5 on all BLE MMT to show improved strength for greater ease w/typical daily activties . 02/21-imprvoing LTG Duration 04/04 activity Short Term Goal (STG) Pt will be able to stand as needed for baptism and daily homemaking activities w/o pain greater than1/10 02/21-stands about 5 min at baptism then has to sit back down STG Duration 02/27 Heat And Vent Aircraft Mechanic Goal (LTG) Pt will be able to start going for neighborhood walks w/o reporting inc pain in Lhip or LE 02/21-started walking indoors w/a group and is progressing inc distance. no pain in leg LTG Duration 04/04 balance Short Term Goal (STG) Pt will be able to do SLS for at least 20 sec on LLE to show improved balance STG Duration achieved 02/21 Mcc Goal (LTG) Pt will be able to do SLS for at least 30 sec on LLE to show improved balance 02/21-24 sec LTG Duration 04/04 Assessment Summary Assessment Patient reports back and left LE is no longer bothering her end of session. Good amy to sit to stand with band and abd bracing exercises. Physical Therapy Plan Frequency and Duration Frequency of Treatment 2x/Week Duration of treatment (weeks) 10 Plan of Care Start Date 01/25/24 Plan of Care End Date 04/04/24 Next Visit Focus/Plan Next Note Type Treatment Note Next Visit Plan *yoga mat on table. manual: pelvis mobs/MET, L hip mobs, STM to piriformis and glutes and ITB, HS HEP: self roll out glute w/ tennis ball, clamshells, hip abd strength s/l, bridge, core work Leg press in clinic
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
--- NOTE | 2024-03-09 11:49 | PT.OTN ---
Current Diagnoses Lesion of sciatic nerve, unspecified lower limb (03/09/24) Physical Therapy Treatment Note PT-OP-A Visit Information Start: 01/24/24 18:13 Freq: Status: Active Protocol: Document 03/09/24 10:50 [facility] (Rec: 03/09/24 11:49 [facility] [id number]) Out-Patient Physical Therapy Visit Information Visit Information Visit Type Treatment Note Visit Note 07/13 [id number] Visit Start Time 10:50 Visit Stop Time 11:30 Visit Number 11 Number of NET UI DEVELOPER Visits 0 PT-OP-B Current Condition Start: 01/24/24 18:13 Freq: Status: Active Protocol: Document 01/25/24 11:32 [facility] (Rec: 01/25/24 13:04 [facility] [id number]) Current Condition History of Current Condition Onset Date 2-3 months ago Current Complaints L hip and down lat leg History of Current Condition Pt saw doctor about a month or 2 ago and was dx w/piriformis syndrome and has done exercises from doctor. It started a few weeks before. It starts in L buttocks, and goes down the leg. Can't stand long enough w/yazidi. Even just getting ready for a few min, gets pain. Pt lost spouse in September and feels like has gotten puney and less active . They used to walk, and hasn' t walked since. When leg starts to bother her standing still, it then it hurts to walk. Sometimes it does hurt quite a bit to walk. Tries to walk 3k steps a day. hx of oophrectomy and hysterectomy in late 30s, early 40s. in 2018 shelly had gallbladder removal. Treatment Goals Patient/Caregiver Goals be able to stand for longer, get back to walks, get back to using legs more. PT-OP-C Subjective Start: 01/24/24 18:13 Freq: Status: Active Protocol: Document 03/09/24 10:50 [facility] (Rec: 03/09/24 11:49 [facility] [id number]) OP-PT Subjective Patient Comments Patient Comments Was sore the day of last session when shopping. She feels like she is getting better. She did use a salonpas patch the past 2 days. WEnt walking today. Was good the past 2 days. PT-OP-D Balance Start: 01/24/24 18:13 Freq: Status: Active Protocol: Document 11/19/24 17:03 [facility] (Rec: 02/22/24 18:11 [facility] [id number]) Balance Tests Single Limb Standing Single Limb- Left 24 sec PT-OP-G Mobility & Gait Start: 01/24/24 18:13 Freq: Status: Active Protocol: Document 01/25/24 11:32 [facility] (Rec: 01/25/24 13:04 [facility] [id number]) OP Gait Assessment Comments Gait Comments dec stance time LLE w/add of LLE and dec push off LLE Stair Climbing Evaluation Comments Stair Climbing Comments recip w/rails bt dec control and strengthnoted on L up and down PT-OP-J Posture/Palpation/Skin Start: 01/24/24 18:13 Freq: Status: Active Protocol: Document 01/25/24 11:32 [facility] (Rec: 01/25/24 13:04 [facility] [id number]) Posture Evaluation Felisa Postural Classification System Lumbar Protective Mechanism Left AP 0 Lumbar Protective Mechanism Right AP 0 Lumbar Protective Mechanism Left PA 1 Lumbar Protective Mechanism Right PA 0 Comments Posture Comments inc kyphosis, falttened lordosis, L iliac crest higher , equal greater trochanter PT-OP-K Range of Motion Start: 01/24/24 18:13 Freq: Status: Active Protocol: Document 01/25/24 11:32 [facility] (Rec: 01/25/24 13:04 [facility] [id number]) Hip Goniometric Range of Motion Hip Right Active Flexion w/Knee Flexed 108 Straight Leg Raise 81 Left Active Flexion w/Knee Flexed 106 Straight Leg Raise 74 Comments tested w/opp knee bent up PT-OP-L Special Tests Start: 01/24/24 18:13 Freq: Status: Active Protocol: Document 01/25/24 11:32 [facility] (Rec: 01/25/24 13:04 [facility] [id number]) Special Tests Lumbar Spine Special Tests Slump Test Results L positive PT-OP-M Strength Start: 01/24/24 18:13 Freq: Status: Active Protocol: Document 02/22/24 17:03 [facility] (Rec: 02/22/24 18:11 [facility] [id number]) Hip Strength Hip Manual Muscle Testing Right Flexion (L2) 4+ Good+ Abduction 4- Good- External Rotation 4 Good Internal Rotation 4+ Good+ Left Flexion (L2) 4 Good Abduction 3+ Fair+ External Rotation 4 Good Internal Rotation 4 Good Knee Strength Knee Manual Muscle Testing Right Flexion (S2) 5 Normal Extension (L3) 5 Normal Left Flexion (S2) 4+ Good+ Extension (L3) 4+ Good+ Ankle/Foot Strength Ankle and Foot Manual Muscle Testing Right Dorsiflexion (L4) 5 Normal Plantarflexion (S1) 5 Normal Left Dorsiflexion (L4) 5 Normal Plantarflexion (S1) 5 Normal Comments PF tested seated B PT-OP-Q Treatments Start: 01/24/24 18:13 Freq: Status: Active Protocol: Document 03/09/24 10:50 [facility] (Rec: 03/09/24 11:49 [facility] [id number]) Gym Equipment Shuttle Recovery Bilateral Squats Details cues control Resistance 87# (3 navy) Shuttle Recovery Platform Stable Reps/Time 2x12 Therapeutic Exercises Standing Exercises heel raises Standing Exercise Name on step w/rail Side bilateral Reps/Minutes 12 stretch Standing Exercise Name calf on step (HEP) Side bilateral Reps/Minutes 1 min resisted walk Standing Exercise Name fwd/back- (HEP review) Side bilateral Equipment Used lvl 1 at shins-at bar Reps/Minutes 15 ft x2 laps Comments cued head up/tall posture, DF foot clearance sidestep Standing Exercise Name HEP (hand out) Side bilateral Equipment Used lvl 1 at shins Reps/Minutes 15 ft x2 laps Comments cued head up/tall posture, DF foot clearance Manual Therapy Treatment Consent Patient gave verbal consent for manual Yes treatment Soft Tissue Mobilization lower leg Body Location L peroneals, ant tib, calf Mobilization Type Rolling Body Position Supine Comments w/AP AAROM and AROM Joint Mobilizations tibfib Joint L traction and AP c/r PT-OP-T Assessment and Plan Start: 01/24/24 18:13 Freq: Status: Active Protocol: Document 03/09/24 10:50 [facility] (Rec: 03/09/24 11:49 [facility] [id number]) Physical Therapy Assessment Goals strength Short Term Goal (STG) Pt will be indep w/HEP STG Duration achieved advancing as able Optometric Assistant Goal (LTG) Pt will score at least 3/5 on all planes LPm and at least 4+ /5 on all BLE MMT to show improved strength for greater ease w/typical daily activties . 02/21-imprvoing LTG Duration 04/04 activity Short Term Goal (STG) Pt will be able to stand as needed for yazidi and daily homemaking activities w/o pain greater than/10 02/21-stands about 5 min at yazidi then has to sit back down STG Duration 02/27 [facility]cf Goal (LTG) Pt will be able to start going for neighborhood walks w/o reporting inc pain in Lhip or LE 02/21-started walking indoors w/a group and is progressing inc distance. no pain in leg LTG Duration 04/04 balance Short Term Goal (STG) Pt will be able to do SLS for at least 20 sec on LLE to show improved balance STG Duration achieved 02/21 Optometric Assistant Goal (LTG) Pt will be able to do SLS for at least 30 sec on LLE to show improved balance 02/21-24 sec LTG Duration 04/04 Assessment Summary Assessment Pt had no c/o pain during session today even w/standing activities, just reports of BLE fatigue w/strengthening. She had tightness in L lower leg that may be related to her pain Physical Therapy Plan Frequency and Duration Frequency of Treatment 2x/Week Duration of treatment (weeks) 10 Plan of Care Start Date 01/25/24 Plan of Care End Date 04/04/24 Next Visit Focus/Plan Next Note Type Treatment Note Next Visit Plan assess response to session; cont to wrok on LLE and core strength, work on back, hip and LLE to dec pain
--- NOTE | 2024-03-13 12:40 | PT.OTN ---
Current Diagnoses Lesion of sciatic nerve, unspecified lower limb (03/13/24) Physical Therapy Treatment Note PT-OP-A Visit Information Start: 01/24/24 18:13 Freq: Status: Active Protocol: Document 03/13/24 09:16 AB (Rec: 03/13/24 12:40 AB [id number]) Out-Patient Physical Therapy Visit Information Visit Information Visit Type Treatment Note Visit Note 08/12 [id number] Visit Start Time 11:34 Visit Stop Time 12:20 Visit Number 12 Number of CONSTRUCTION CONTROLLER Visits 1 PT-OP-B Current Condition Start: 01/24/24 18:13 Freq: Status: Active Protocol: Document 01/25/24 11:32 LR (Rec: 01/25/24 13:04 [facility] [id number]) Current Condition History of Current Condition Onset Date 2-3 months ago Current Complaints L hip and down lat leg History of Current Condition Pt saw doctor about a month or 2 ago and was dx w/piriformis syndrome and has done exercises from doctor. It started a few weeks before. It starts in L buttocks, and goes down the leg. Can't stand long enough w/holiness. Even just getting ready for a few min, gets pain. Pt lost spouse in September and feels like has gotten puney and less active . They used to walk, and hasn' t walked since. When leg starts to bother her standing still, it then it hurts to walk. Sometimes it does hurt quite a bit to walk. Tries to walk 3k steps a day. hx of oophrectomy and hysterectomy in late 30s, early 40s. in 2018 shelly had gallbladder removal. Treatment Goals Patient/Caregiver Goals be able to stand for longer, get back to walks, get back to using legs more. PT-OP-C Subjective Start: 01/24/24 18:13 Freq: Status: Active Protocol: Document 03/13/24 09:16 AB (Rec: 03/13/24 12:40 AB [id number]) OP-PT Subjective Patient Comments Patient Comments Patient reports she is better, walking is better, [facility]. Patient reports she was good previous session. Patient reports she has to favor the left LE when she is carrying things on the stairs. AI PI WNL, patient reports having no pain. PT-OP-D Balance Start: 01/24/24 18:13 Freq: Status: Active Protocol: Document 02/22/24 17:03 [facility] (Rec: 02/22/24 18:11 [facility] [id number]) Balance Tests Single Limb Standing Single Limb- Left 24 sec PT-OP-G Mobility & Gait Start: 01/24/24 18:13 Freq: Status: Active Protocol: Document 01/25/24 11:32 [facility] (Rec: 01/25/24 13:04 [facility] [id number]) OP Gait Assessment Comments Gait Comments dec stance time LLE w/add of LLE and dec push off LLE Stair Climbing Evaluation Comments Stair Climbing Comments recip w/rails bt dec control and strengthnoted on L up and down PT-OP-J Posture/Palpation/Skin Start: 01/24/24 18:13 Freq: Status: Active Protocol: Document 01/25/24 11:32 [facility] (Rec: 01/25/24 13:04 [facility] [id number]) Posture Evaluation Felisa Postural Classification System Lumbar Protective Mechanism Left AP 0 Lumbar Protective Mechanism Right AP 0 Lumbar Protective Mechanism Left PA 1 Lumbar Protective Mechanism Right PA 0 Comments Posture Comments inc kyphosis, falttened lordosis, L iliac crest higher , equal greater trochanter PT-OP-K Range of Motion Start: 01/24/24 18:13 Freq: Status: Active Protocol: Document 01/25/24 11:32 [facility] (Rec: 01/25/24 13:04 [facility] [id number]) Hip Goniometric Range of Motion Hip Right Active Flexion w/Knee Flexed 108 Straight Leg Raise 81 Left Active Flexion w/Knee Flexed 106 Straight Leg Raise 74 Comments tested w/opp knee bent up PT-OP-L Special Tests Start: 01/24/24 18:13 Freq: Status: Active Protocol: Document 01/25/24 11:32 [facility] (Rec: 01/25/24 13:04 [facility] [id number]) Special Tests Lumbar Spine Special Tests Slump Test Results L positive PT-OP-M Strength Start: 01/24/24 18:13 Freq: Status: Active Protocol: Document 02/22/24 17:03 [facility] (Rec: 02/22/24 18:11 [facility] [id number]) Hip Strength Hip Manual Muscle Testing Right Flexion (L2) 4+ Good+ Abduction 4- Good- External Rotation 4 Good Internal Rotation 4+ Good+ Left Flexion (L2) 4 Good Abduction 3+ Fair+ External Rotation 4 Good Internal Rotation 4 Good Knee Strength Knee Manual Muscle Testing Right Flexion (S2) 5 Normal Extension (L3) 5 Normal Left Flexion (S2) 4+ Good+ Extension (L3) 4+ Good+ Ankle/Foot Strength Ankle and Foot Manual Muscle Testing Right Dorsiflexion (L4) 5 Normal Plantarflexion (S1) 5 Normal Left Dorsiflexion (L4) 5 Normal Plantarflexion (S1) 5 Normal Comments PF tested seated B PT-OP-Q Treatments Start: 01/24/24 18:13 Freq: Status: Active Protocol: Document 03/13/24 09:16 AB (Rec: 03/13/24 12:40 AB [id number]) Therapeutic Exercises Supine Exercises abdominal bracing Supine Exercise Name fall out w/Lvl 3 band Side bilateral Equipment Used HEP bent knee fall out Reps/Minutes X8 without band then X8 with band bridge Side bilateral Reps/Minutes 5 secx10 Comments cues core and glutes & segmental stretches Supine Exercise Name figure 4 2. Modified Jb one LE on bolster * one on mat then off mat Side bilateral Reps/Minutes 60 sec X each LE fig 4 X1 Mod Jacques X2 each LE Comments * on bolster with folded pillow then off edge Sidelying Exercises seated hip abd with band Sidelying Exercise Name HEP Side bilateral Resistance [place] Reps/Minutes one minute hold X1 Comments verbal cues Sitting Exercises Seated Pallof press Resistance level one band Reps/Minutes 4 each side and then X 2 Comments moniotred for pain Standing Exercises mini squat with band Standing Exercise Name HEP Side bilateral Resistance level 3 band Reps/Minutes X10 Comments vc to keep tension on band lateral step up Standing Exercise Name UE use Side bilateral Reps/Minutes X10 each Le Comments verbal cues for avoiding dynamic valgus and to inc buttocks back Rhythmic stabilzation Resistance light Reps/Minutes man resistance all directions Comments in standing, monitored for pain stretch Standing Exercise Name gastroc and soleus(HEP) Side bilateral Reps/Minutes one minute each Comments verbal cues for soleus paloff press Side bilateral Equipment Used 1 peach bands Reps/Minutes X15 left X 4 right Comments reports feeling it SI area sit to stand Standing Exercise Name standard chair Side bilateral Resistance level 3 band tied above knees Reps/Minutes X4 Comments cues knees apart and full ext of hips Manual Therapy Treatment Consent Patient gave verbal consent for manual Yes treatment Manual Techniques MET for right AI left PI Type left PI right AI and pubic shotgun Reps/Duration 6 X 6 each Comments left foot into mat ( from hooklying ) right manual resistance into hip flexion PT-OP-T Assessment and Plan Start: 01/24/24 18:13 Freq: Status: Active Protocol: Document 03/13/24 09:16 AB (Rec: 03/13/24 12:40 AB [id number]) Physical Therapy Assessment Goals strength Short Term Goal (STG) Pt will be indep w/HEP STG Duration achieved advancing as able First Breaker Feeder Goal (LTG) Pt will score at least 3/5 on all planes LPm and at least 4+ /5 on all BLE MMT to show improved strength for greater ease w/typical daily activties . 02/21-imprvoing LTG Duration 04/04 activity Short Term Goal (STG) Pt will be able to stand as needed for holiness and daily homemaking activities w/o pain greater than/10 02/21-stands about 5 min at holiness then has to sit back down STG Duration 02/27 Retirement Goal (LTG) Pt will be able to start going for neighborhood walks w/o reporting inc pain in Lhip or LE 02/21-started walking indoors w/a group and is progressing inc distance. no pain in leg LTG Duration 04/04 balance Short Term Goal (STG) Pt will be able to do SLS for at least 20 sec on LLE to show improved balance STG Duration achieved 02/21 First Breaker Feeder Goal (LTG) Pt will be able to do SLS for at least 30 sec on LLE to show improved balance 02/21-24 sec LTG Duration 04/04 Assessment Summary Assessment Patient reported discomfort SI area standing Pallof press, less seated. Discomfort eliminated post MET, but patient does report the area feels like she worked it vs pain end of session. Physical Therapy Plan Frequency and Duration Frequency of Treatment 2x/Week Duration of treatment (weeks) 10 Plan of Care Start Date 01/25/24 Plan of Care End Date 04/04/24 Next Visit Focus/Plan Next Note Type Treatment Note Next Visit Plan assess response to session; cont to work on LLE and core ( trial of Pallof in standing start of session , in SI discomfort persists swithc to seated )strength, work on back , hip and LLE to dec pain
--- NOTE | 2024-03-15 09:46 | PT.OTN ---
Current Diagnoses Lesion of sciatic nerve, unspecified lower limb (03/15/24) Physical Therapy Treatment Note PT-OP-A Visit Information Start: 01/24/24 18:13 Freq: Status: Active Protocol: Document 03/15/24 09:06 [facility] (Rec: 03/15/24 09:46 [facility] [id number]) Out-Patient Physical Therapy Visit Information Visit Information Visit Type Treatment Note Visit Note 09/12 [id number] Visit Start Time 09:05 Visit Stop Time 09:45 Visit Number 13 Number of AFTER SCHOOL PROGRAM ASSISTANT Visits 0 PT-OP-B Current Condition Start: 01/24/24 18:13 Freq: Status: Active Protocol: Document 01/25/24 11:32 [facility] (Rec: 01/25/24 13:04 [facility] [id number]) Current Condition History of Current Condition Onset Date 2-3 months ago Current Complaints L hip and down lat leg History of Current Condition Pt saw doctor about a month or 2 ago and was dx w/piriformis syndrome and has done exercises from doctor. It started a few weeks before. It starts in L buttocks, and goes down the leg. 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 Even just getting ready for a few min, gets pain. Pt lost spouse in September and feels like has gotten puney and less active . They used to walk, and hasn' t walked since. When leg starts to bother her standing still, it then it hurts to walk. Sometimes it does hurt quite a bit to walk. Tries to walk 3k steps a day. hx of oophrectomy and hysterectomy in late 30s, early 40s. in 2018 shelly had gallbladder removal. Treatment Goals Patient/Caregiver Goals be able to stand for longer, get back to walks, get back to using legs more. PT-OP-C Subjective Start: 01/24/24 18:13 Freq: Status: Active Protocol: Document 03/15/24 09:06 [facility] (Rec: 03/15/24 09:46 [facility] [id number]) OP-PT Subjective Patient Comments Patient Comments Sometimes better but after leaving and standing waiting for appts she was having leg pain. Mostly yesterday and today more pain and had to take rests. Yesterday was going to walk shops but then stopped d/t pain PT-OP-D Balance Start: 01/24/24 18:13 Freq: Status: Active Protocol: Document 02/22/24 17:03 [facility] (Rec: 02/22/24 18:11 [facility] [id number]) Balance Tests Single Limb Standing Single Limb- Left 24 sec PT-OP-G Mobility & Gait Start: 01/24/24 18:13 Freq: Status: Active Protocol: Document 01/25/24 11:32 [facility] (Rec: 01/25/24 13:04 [facility] [id number]) OP Gait Assessment Comments Gait Comments dec stance time LLE w/add of LLE and dec push off LLE Stair Climbing Evaluation Comments Stair Climbing Comments recip w/rails bt dec control and strengthnoted on L up and down PT-OP-J Posture/Palpation/Skin Start: 01/24/24 18:13 Freq: Status: Active Protocol: Document 01/25/24 11:32 [facility] (Rec: 01/25/24 13:04 [facility] [id number]) Posture Evaluation Felisa Postural Classification System Lumbar Protective Mechanism Left AP 0 Lumbar Protective Mechanism Right AP 0 Lumbar Protective Mechanism Left PA 1 Lumbar Protective Mechanism Right PA 0 Comments Posture Comments inc kyphosis, falttened lordosis, L iliac crest higher , equal greater trochanter PT-OP-K Range of Motion Start: 01/24/24 18:13 Freq: Status: Active Protocol: Document 01/25/24 11:32 [facility] (Rec: 01/25/24 13:04 [facility] [id number]) Hip Goniometric Range of Motion Hip Right Active Flexion w/Knee Flexed 108 Straight Leg Raise 81 Left Active Flexion w/Knee Flexed 106 Straight Leg Raise 74 Comments tested w/opp knee bent up PT-OP-L Special Tests Start: 01/24/24 18:13 Freq: Status: Active Protocol: Document 01/25/24 11:32 [facility] (Rec: 01/25/24 13:04 [facility] [id number]) Special Tests Lumbar Spine Special Tests Slump Test Results L positive PT-OP-M Strength Start: 01/24/24 18:13 Freq: Status: Active Protocol: Document 02/22/24 17:03 [facility] (Rec: 02/22/24 18:11 [facility] [id number]) Hip Strength Hip Manual Muscle Testing Right Flexion (L2) 4+ Good+ Abduction 4- Good- External Rotation 4 Good Internal Rotation 4+ Good+ Left Flexion (L2) 4 Good Abduction 3+ Fair+ External Rotation 4 Good Internal Rotation 4 Good Knee Strength Knee Manual Muscle Testing Right Flexion (S2) 5 Normal Extension (L3) 5 Normal Left Flexion (S2) 4+ Good+ Extension (L3) 4+ Good+ Ankle/Foot Strength Ankle and Foot Manual Muscle Testing Right Dorsiflexion (L4) 5 Normal Plantarflexion (S1) 5 Normal Left Dorsiflexion (L4) 5 Normal Plantarflexion (S1) 5 Normal Comments PF tested seated B PT-OP-Q Treatments Start: 01/24/24 18:13 Freq: Status: Active Protocol: Document 03/15/24 09:06 [facility] (Rec: 03/15/24 09:46 [facility] [id number]) Therapeutic Exercises Supine Exercises LTR Side bilateral Reps/Minutes 15 Comments cues comfortable range abdominal bracing Supine Exercise Name 1. with LE extension Side bilateral Reps/Minutes X8 each Comments min cues to avoid back lift Standing Exercises lateral step up Standing Exercise Name UE use Side bilateral Reps/Minutes X10 each Le Comments cues to control decent and inc buttocks back Rhythmic stabilzation Resistance light Reps/Minutes man resistance all directions Comments in standing, monitored for pain stretch Standing Exercise Name calf on step (HEP) Side bilateral Reps/Minutes 1 min Manual Therapy Treatment Consent Patient gave verbal consent for manual Yes treatment Soft Tissue Mobilization lower leg Body Location L peroneals, ant tib, calf Mobilization Type Rolling Body Position Supine Comments w/AP AAROM and AROM glutes Body Location L glute/ piriformis area Mobilization Type Rolling Intensity/Depth Moderate Body Position Supine Comments w/hip flex ITB Body Location L Mobilization Type Rolling Intensity/Depth Moderate Body Position Hooklying Joint Mobilizations sacrum Joint L PA supine w/LTR lumbar Joint transverse L 4 and 5 R w/LTR hip Comments L hip inf c/r PT-OP-T Assessment and Plan Start: 01/24/24 18:13 Freq: Status: Active Protocol: Document 03/15/24 09:06 [facility] (Rec: 03/15/24 09:46 [facility] [id number]) Physical Therapy Assessment Assessment Summary Assessment Pt did well with all exercises w/o inc pain. no more cues needd w/supine leg ext but still cues w/step ups lat. Improved L SLR after manual and no pain upon standing after manual.
--- NOTE | 2024-03-22 11:00 | PT.OTN ---
Current Diagnoses Lesion of sciatic nerve, unspecified lower limb (03/22/24) Physical Therapy Treatment Note PT-OP-A Visit Information Start: 01/24/24 18:13 Freq: Status: Active Protocol: Document 03/22/24 08:13 AB (Rec: 03/22/24 11:00 AB [id number]) Out-Patient Physical Therapy Visit Information Visit Information Visit Type Treatment Note Visit Note 10/12 [id number] Visit Start Time 09:04 Visit Stop Time 09:46 Visit Number 14 Number of LOG GETTER Visits 1 PT-OP-B Current Condition Start: 01/24/24 18:13 Freq: Status: Active Protocol: Document 01/25/24 11:32 [facility] (Rec: 01/25/24 13:04 [facility] [id number]) Current Condition History of Current Condition Onset Date 2-3 months ago Current Complaints L hip and down lat leg History of Current Condition Pt saw doctor about a month or 2 ago and was dx w/piriformis syndrome and has done exercises from doctor. It started a few weeks before. It starts in L buttocks, and goes down the leg. Can't stand long enough w/hinduism. Even just getting ready for a few min, gets pain. Pt lost spouse in September and feels like has gotten puney and less active . They used to walk, and hasn' t walked since. When leg starts to bother her standing still, it then it hurts to walk. Sometimes it does hurt quite a bit to walk. Tries to walk 3k steps a day. hx of oophrectomy and hysterectomy in late 30s, early 40s. in 2018 shelly had gallbladder removal. Treatment Goals Patient/Caregiver Goals be able to stand for longer, get back to walks, get back to using legs more. PT-OP-C Subjective Start: 01/24/24 18:13 Freq: Status: Active Protocol: Document 03/22/24 08:13 AB (Rec: 03/22/24 11:00 AB [id number]) OP-PT Subjective Patient Comments Patient Comments Patient report this is the best week she has had. Patient reports the left leg feels weaker than the right. PT-OP-D Balance Start: 01/24/24 18:13 Freq: Status: Active Protocol: Document 02/22/24 17:03 [facility] (Rec: 02/22/24 18:11 [facility] [id number]) Balance Tests Single Limb Standing Single Limb- Left 24 sec PT-OP-G Mobility & Gait Start: 01/24/24 18:13 Freq: Status: Active Protocol: Document 01/25/24 11:32 [facility] (Rec: 01/25/24 13:04 [facility] [id number]) OP Gait Assessment Comments Gait Comments dec stance time LLE w/add of LLE and dec push off LLE Stair Climbing Evaluation Comments Stair Climbing Comments recip w/rails bt dec control and strengthnoted on L up and down PT-OP-J Posture/Palpation/Skin Start: 01/24/24 18:13 Freq: Status: Active Protocol: Document 01/25/24 11:32 [facility] (Rec: 01/25/24 13:04 [facility] [id number]) Posture Evaluation Felisa Postural Classification System Lumbar Protective Mechanism Left AP 0 Lumbar Protective Mechanism Right AP 0 Lumbar Protective Mechanism Left PA 1 Lumbar Protective Mechanism Right PA 0 Comments Posture Comments inc kyphosis, falttened lordosis, L iliac crest higher , equal greater trochanter PT-OP-K Range of Motion Start: 01/24/24 18:13 Freq: Status: Active Protocol: Document 01/25/24 11:32 [facility] (Rec: 01/25/24 13:04 [facility] [id number]) Hip Goniometric Range of Motion Hip Right Active Flexion w/Knee Flexed 108 Straight Leg Raise 81 Left Active Flexion w/Knee Flexed 106 Straight Leg Raise 74 Comments tested w/opp knee bent up PT-OP-L Special Tests Start: 01/24/24 18:13 Freq: Status: Active Protocol: Document 01/25/24 11:32 [facility] (Rec: 01/25/24 13:04 [facility] [id number]) Special Tests Lumbar Spine Special Tests Slump Test Results L positive PT-OP-M Strength Start: 01/24/24 18:13 Freq: Status: Active Protocol: Document 02/22/24 17:03 [facility] (Rec: 02/22/24 18:11 [facility] [id number]) Hip Strength Hip Manual Muscle Testing Right Flexion (L2) 4+ Good+ Abduction 4- Good- External Rotation 4 Good Internal Rotation 4+ Good+ Left Flexion (L2) 4 Good Abduction 3+ Fair+ External Rotation 4 Good Internal Rotation 4 Good Knee Strength Knee Manual Muscle Testing Right Flexion (S2) 5 Normal Extension (L3) 5 Normal Left Flexion (S2) 4+ Good+ Extension (L3) 4+ Good+ Ankle/Foot Strength Ankle and Foot Manual Muscle Testing Right Dorsiflexion (L4) 5 Normal Plantarflexion (S1) 5 Normal Left Dorsiflexion (L4) 5 Normal Plantarflexion (S1) 5 Normal Comments PF tested seated B PT-OP-Q Treatments Start: 01/24/24 18:13 Freq: Status: Active Protocol: Document 03/22/24 08:13 AB (Rec: 03/22/24 11:00 AB [id number]) Gym Equipment Shuttle Balance red Details normal VANESSA Comments CGA head turns and visual scanning Therapeutic Exercises Supine Exercises abdominal bracing Supine Exercise Name 1. bent knee fall out 2. bracing with LE ext Reps/Minutes 1. X10 2. X 8 bridge Side bilateral Reps/Minutes 5 secx10 Comments cues core and glutes & segmental stretches Supine Exercise Name 1. figure 4 2. Modified Thomas3. piriformis Side bilateral Reps/Minutes 60 sec each X 1 Comments Jb stretch L not amy modified to LE on mat for both and knee to chest Sitting Exercises seated hip abd with band Side bilateral Resistance lev 1,2,3 Reps/Minutes X3 one min Comments monitored for pain Seated Pallof press Resistance level one band Reps/Minutes X10 from right X8 from left rep SI area discomfort/not bad Standing Exercises paloff press Side bilateral Equipment Used 1 peach bands Reps/Minutes X4 each side Comments reports feeling it SI area R with band to right nothing when perf left side Neuro Re-Education Treatment Balance Activities Retro stepping Details Retro tandem Reps/Duration 10 feet X 3 Comments CGA hands above bars tandem stepping Reps/Duration 10 feet X 3 Comments CGA hands above bars marching on foam Details blue cushion not foam Reps/Duration X10 Comments CGA hands above bars step up tap Surface standing on foam to 6 inch yuliet Reps/Duration X10 Comments CGA hands above bars Hurdles Reps/Duration 10 feet X 6 Comments CGA Self-Care/Home Management Treatment Education Other Education Reviewed pain rules for strengthening. PT-OP-T Assessment and Plan Start: 01/24/24 18:13 Freq: Status: Active Protocol: Document 03/22/24 08:13 AB (Rec: 03/22/24 11:00 AB [id number]) Physical Therapy Assessment Goals strength Short Term Goal (STG) Pt will be indep w/HEP STG Duration achieved advancing as able Halfway Goal (LTG) Pt will score at least 3/5 on all planes LPm and at least 4+ /5 on all BLE MMT to show improved strength for greater ease w/typical daily activties . 02/21-imprvoing LTG Duration 04/04 activity Short Term Goal (STG) Pt will be able to stand as needed for hinduism and daily homemaking activities w/o pain greater than1/10 02/21-stands about 5 min at hinduism then has to sit back down STG Duration 02/27 Halfway Goal (LTG) Pt will be able to start going for neighborhood walks w/o reporting inc pain in Lhip or LE 02/21-started walking indoors w/a group and is progressing inc distance. no pain in leg LTG Duration 04/04 balance Short Term Goal (STG) Pt will be able to do SLS for at least 20 sec on LLE to show improved balance STG Duration achieved 02/21 Halfway Goal (LTG) Pt will be able to do SLS for at least 30 sec on LLE to show improved balance 02/21-24 sec LTG Duration 04/04 Assessment Summary Assessment Patient reports she feels the same end of session when questioned regarding pain. Good amy to balance exercises, able to clear all hurdles post first set of 10 Physical Therapy Plan Frequency and Duration Frequency of Treatment 2x/Week Duration of treatment (weeks) 10 Plan of Care Start Date 01/25/24 Plan of Care End Date 04/04/24 Next Visit Focus/Plan Next Note Type Treatment Note Next Visit Plan assess response to session; cont to work on LLE and core ( continue in clinic Pallof in standing start of session strength, work on back, hip and LLE to dec pain, review LTR, progress sidelying abd and clamshell as able.
--- NOTE | 2024-03-28 09:05 | PT.OTN ---
Current Diagnoses Lesion of sciatic nerve, unspecified lower limb (03/28/24) Physical Therapy Treatment Note PT-OP-A Visit Information Start: 01/24/24 18:13 Freq: Status: Active Protocol: Document 03/28/24 08:20 [facility] (Rec: 03/28/24 09:05 [facility] [id number]) Out-Patient Physical Therapy Visit Information Visit Information Visit Type Progress Note Visit Note 04/14 [id number] Visit Start Time 08:20 Visit Stop Time 09:00 Visit Number 15 Number of SQL DATA ARCHITECT Visits 0 PT-OP-B Current Condition Start: 01/24/24 18:13 Freq: Status: Active Protocol: Document 01/25/24 11:32 [facility] (Rec: 01/25/24 13:04 [facility] [id number]) Current Condition History of Current Condition Onset Date 2-3 months ago Current Complaints L hip and down lat leg History of Current Condition Pt saw doctor about a month or 2 ago and was dx w/piriformis syndrome and has done exercises from doctor. It started a few weeks before. It starts in L buttocks, and goes down the leg. Can't stand long enough w/hoahaoism. Even just getting ready for a few min, gets pain. Pt lost spouse in September and feels like has gotten puney and less active . They used to walk, and hasn' t walked since. When leg starts to bother her standing still, it then it hurts to walk. Sometimes it does hurt quite a bit to walk. Tries to walk 3k steps a day. hx of oophrectomy and hysterectomy in late 30s, early 40s. in 2018 shelly had gallbladder removal. Treatment Goals Patient/Caregiver Goals be able to stand for longer, get back to walks, get back to using legs more. PT-OP-C Subjective Start: 01/24/24 18:13 Freq: Status: Active Protocol: Document 03/28/24 08:20 [facility] (Rec: 03/28/24 09:05 [facility] [id number]) OP-PT Subjective Patient Comments Patient Comments Last night did a lot of standing for cooking and was fairly painful. DOesn't bother her in bed anymore. She only did half o her hair this AM then sat down because seh felt it a little. Last week she barely felt it. Its better than when she stared but not all the way gone. Yesterday Am when got up, was bothering her in her buttocks and uses a patch. Has done less down ehr leg lately. PT-OP-D Balance Start: 01/24/24 18:13 Freq: Status: Active Protocol: Document 03/28/24 08:20 [facility] (Rec: 03/28/24 09:05 [facility] [id number]) Balance Tests Single Limb Standing Single Limb- Left 29 sec PT-OP-G Mobility & Gait Start: 01/24/24 18:13 Freq: Status: Active Protocol: Document 01/25/24 11:32 [facility] (Rec: 01/25/24 13:04 [facility] [id number]) OP Gait Assessment Comments Gait Comments dec stance time LLE w/add of LLE and dec push off LLE Stair Climbing Evaluation Comments Stair Climbing Comments recip w/rails bt dec control and strengthnoted on L up and down PT-OP-J Posture/Palpation/Skin Start: 01/24/24 18:13 Freq: Status: Active Protocol: Document 01/25/24 11:32 [facility] (Rec: 01/25/24 13:04 [facility] [id number]) Posture Evaluation Felisa Postural Classification System Lumbar Protective Mechanism Left AP 0 Lumbar Protective Mechanism Right AP 0 Lumbar Protective Mechanism Left PA 1 Lumbar Protective Mechanism Right PA 0 Comments Posture Comments inc kyphosis, falttened lordosis, L iliac crest higher , equal greater trochanter PT-OP-K Range of Motion Start: 01/24/24 18:13 Freq: Status: Active Protocol: Document 01/25/24 11:32 [facility] (Rec: 01/25/24 13:04 [facility] [id number]) Hip Goniometric Range of Motion Hip Right Active Flexion w/Knee Flexed 108 Straight Leg Raise 81 Left Active Flexion w/Knee Flexed 106 Straight Leg Raise 74 Comments tested w/opp knee bent up PT-OP-L Special Tests Start: 01/24/24 18:13 Freq: Status: Active Protocol: Document 01/25/24 11:32 [facility] (Rec: 01/25/24 13:04 [facility] [id number]) Special Tests Lumbar Spine Special Tests Slump Test Results L positive PT-OP-M Strength Start: 01/24/24 18:13 Freq: Status: Active Protocol: Document 03/28/24 08:20 [facility] (Rec: 03/28/24 09:05 [facility] [id number]) Hip Strength Hip Manual Muscle Testing Right Flexion (L2) 5 Normal Abduction 4 Good External Rotation 5 Normal Internal Rotation 5 Normal Left Flexion (L2) 4 Good Abduction 3+ Fair+ External Rotation 4+ Good+ Internal Rotation 5 Normal Knee Strength Knee Manual Muscle Testing Right Flexion (S2) 5 Normal Extension (L3) 5 Normal Left Flexion (S2) 5 Normal Extension (L3) 5 Normal Ankle/Foot Strength Ankle and Foot Manual Muscle Testing Right Dorsiflexion (L4) 5 Normal Plantarflexion (S1) 5 Normal Left Dorsiflexion (L4) 5 Normal Plantarflexion (S1) 5 Normal Comments PF tested seated B PT-OP-Q Treatments Start: 01/24/24 18:13 Freq: Status: Active Protocol: Document 03/28/24 08:20 [facility] (Rec: 03/28/24 09:05 [facility] [id number]) Therapeutic Exercises Supine Exercises LTR Side bilateral Reps/Minutes 10 Comments cues core abdominal bracing Supine Exercise Name SL isometric press Side bilateral Reps/Minutes 20 sec x2 ea bridge Side left Reps/Minutes 2 Comments sttempted sl but cramp Sidelying Exercises hip abd Side left Reps/Minutes 10 Comments cues for leg back and knee straight Other Exercises isometrics Other Exercise Name BLE MMT and LPM Manual Therapy Treatment Consent Patient gave verbal consent for manual Yes treatment Soft Tissue Mobilization abdomen Comments L fascia along small intestine and descending colon w/LTR lumbar Body Location Llumbar paraspinals Mobilization Type Cross-Friction,Rolling, Sustained Pressure Intensity/Depth Moderate Body Position Supine Comments LTR hip flexors at groin Body Location L Mobilization Type Sustained Pressure Intensity/Depth Moderate Body Position Hooklying Comments w/LTR glutes Body Location L glute/ piriformis area Mobilization Type Rolling Intensity/Depth Moderate Body Position Supine Comments w/hip flex Joint Mobilizations lumbar Joint transverse R 4 and 5 R w/LTR hip Comments L inf c/r PT-OP-T Assessment and Plan Start: 01/24/24 18:13 Freq: Status: Active Protocol: Document 03/28/24 08:20 [facility] (Rec: 03/28/24 09:05 [facility] [id number]) Physical Therapy Assessment Goals strength Short Term Goal (STG) Pt will be indep w/HEP STG Duration achieved advancing as able Fpc Goal (LTG) Pt will score at least 3/5 on all planes LPm and at least 4+ /5 on all BLE MMT to show improved strength for greater ease w/typical daily activties . 02/21-imprvoing 03/28 LTG Duration 05/23 activity Short Term Goal (STG) Pt will be able to stand as needed for hoahaoism and daily homemaking activities w/o pain greater than1/10 02/21-stands about 5 min at hoahaoism then has to sit back down 03/28- most of the time able able to stand for floor technician to do hair; sits at about 5 min at hoahaoism, has been cooking recently. STG Duration 04/24 Fpc Goal (LTG) Pt will be able to start going for neighborhood walks w/o reporting inc pain in Lhip or LE 02/21-started walking indoors w/a group and is progressing inc distance. no pain in leg 03/28-during her good week, she went to [employer] and did well with walking. LTG Duration 05/23 balance Short Term Goal (STG) Pt will be able to do SLS for at least 20 sec on LLE to show improved balance STG Duration achieved 02/21 Private Branch Exchange Service Adviser Goal (LTG) Pt will be able to do SLS for at least 30 sec on LLE to show improved balance 02/21-24 sec 03/28-29 sec LTG Duration 05/23 Assessment Summary Assessment Pt is improving w/strength, balance and function w/PT. She has had soem ups and downs w/ recovery vs linear recovery but overall improving and noting pain less in her day w/ standing only limit and is intermittant. She would benefit from cont PT to dec pain and improve function Physical Therapy Plan Frequency and Duration Frequency of Treatment 1-2x/Week Duration of treatment (weeks) 8 Plan of Care Start Date 03/28/24 Plan of Care End Date 05/23/24 Therapeutic Interventions Therapeutic Interventions Balance Training,Gait Training ,Home Exercise Program,Joint Mobilizations,Manual Therapy, Neuromuscular Re-education, Patient/Caregiver Education, Self-Care/Home Management,Soft Tissue Mobilization,Taping, Therapeutic Activities, Therapeutic Exercises Modalities Cold Pack/Ice Massage,Electric Stimulation,Hot Packs, Ultrasound Next Visit Focus/Plan Next Note Type Treatment Note Next Visit Plan cont to work on LLE and core strength, work on back, hip and LLE to dec pain
--- NOTE | 2024-03-28 09:05 | PT.OPPOC ---
Physical, Occupational & Speech Therapy At Current Diagnoses Lesion of sciatic nerve, unspecified lower limb (03/28/24) Visit Care Team Role Provider Type Sharon Xiong DO Attending Provider Physician Family Provider Primary Care Provider Referring Provider Specialty: Family Practice Address: [address] [place] [address], [address], [facility] Email: [email or web address] Plan Of Care PT-OP-B Current Condition Start: 01/24/24 18:13 Freq: Status: Active Protocol: Document 01/25/24 11:32 [facility] (Rec: 01/25/24 13:04 [facility] [id number]) Current Condition History of Current Condition Onset Date 2-3 months ago Current Complaints L hip and down lat leg History of Current Condition Pt saw doctor about a month or 2 ago and was dx w/piriformis syndrome and has done exercises from doctor. It started a few weeks before. It starts in L buttocks, and goes down the leg. Can't stand long enough w/oriental orthodox. Even just getting ready for a few min, gets pain. Pt lost spouse in September and feels like has gotten puney and less active . They used to walk, and hasn' t walked since. When leg starts to bother her standing still, it then it hurts to walk. Sometimes it does hurt quite a bit to walk. Tries to walk 3k steps a day. hx of oophrectomy and hysterectomy in late 30s, early 40s. in 2018 shelly had gallbladder removal. Treatment Goals Patient/Caregiver Goals be able to stand for longer, get back to walks, get back to using legs more. PT-OP-T Assessment and Plan Start: 01/24/24 18:13 Freq: Status: Active Protocol: Document 03/28/24 08:20 [facility] (Rec: 03/28/24 09:05 [facility] [id number]) Physical Therapy Assessment Goals strength Short Term Goal (STG) Pt will be indep w/HEP STG Duration achieved advancing as able Jail Goal (LTG) Pt will score at least 3/5 on all planes LPm and at least 4+ /5 on all BLE MMT to show improved strength for greater ease w/typical daily activties . 02/21-imprvoing 03/28 LTG Duration 05/23 activity Short Term Goal (STG) Pt will be able to stand as needed for oriental orthodox and daily homemaking activities w/o pain greater than1/10 02/21-stands about 5 min at oriental orthodox then has to sit back down 03/28- most of the time able able to stand for operations executive to do hair; sits at about 5 min at oriental orthodox, has been cooking recently. STG Duration 04/24 Jail Goal (LTG) Pt will be able to start going for neighborhood walks w/o reporting inc pain in Lhip or LE 02/21-started walking indoors w/a group and is progressing inc distance. no pain in leg 03/28-during her good week, she went to [employer] and did well with walking. LTG Duration 05/23 balance Short Term Goal (STG) Pt will be able to do SLS for at least 20 sec on LLE to show improved balance STG Duration achieved 02/21 Meat Inspector Goal (LTG) Pt will be able to do SLS for at least 30 sec on LLE to show improved balance 02/21- sec 03/28-29 sec LTG Duration 05/23 Assessment Summary Assessment Pt is improving w/strength, balance and function w/PT. She has had soem ups and downs w/ recovery vs linear recovery but overall improving and noting pain less in her day w/ standing only limit and is intermittant. She would benefit from cont PT to dec pain and improve function Physical Therapy Plan Frequency and Duration Frequency of Treatment 1-2x/Week Duration of treatment (weeks) 8 Plan of Care Start Date 03/28/24 Plan of Care End Date 05/23/24 Therapeutic Interventions Therapeutic Interventions Balance Training,Gait Training ,Home Exercise Program,Joint Mobilizations,Manual Therapy, Neuromuscular Re-education, Patient/Caregiver Education, Self-Care/Home Management,Soft Tissue Mobilization,Taping, Therapeutic Activities, Therapeutic Exercises Modalities Cold Pack/Ice Massage,Electric Stimulation,Hot Packs, Ultrasound Next Visit Focus/Plan Next Note Type Treatment Note Next Visit Plan cont to work on LLE and core strength, work on back, hip and LLE to dec pain Plan of Care Dates Plan of Care Start Date 03/28/24 Plan of Care End Date 05/23/24 Electronically Signed by: Moraima Mccartney, PT 03/28/24 0905 If you are in agreement with this Plan of Care, please return a signed and dated copy. I have reviewed this Plan of Care and certify that the skilled therapy services above are required to meet the patient?s needs. Physician Signature Date Printed Name and Credentials Clinical Instructor Signature Printed Name and Credentials
--- NOTE | 2024-03-31 10:43 | PT.OTN ---
Current Diagnoses Lesion of sciatic nerve, unspecified lower limb (03/31/24) Physical Therapy Treatment Note PT-OP-A Visit Information Start: 01/24/24 18:13 Freq: Status: Active Protocol: Document 03/31/24 08:11 [facility] (Rec: 03/31/24 09:01 [facility] [id number]) Out-Patient Physical Therapy Visit Information Visit Information Visit Type Treatment Note Visit Note 05/15 [id number] Visit Start Time 08:15 Visit Stop Time 09:46 Visit Number 16 Number of PROJECT MANAGER SENIOR Visits 1 PT-OP-B Current Condition Start: 01/24/24 18:13 Freq: Status: Active Protocol: Document 01/25/24 11:32 [facility] (Rec: 01/25/24 13:04 [facility] [id number]) Current Condition History of Current Condition Onset Date 2-3 months ago Current Complaints L hip and down lat leg History of Current Condition Pt saw doctor about a month or 2 ago and was dx w/piriformis syndrome and has done exercises from doctor. It started a few weeks before. It starts in L buttocks, and goes down the leg. Can't stand long enough w/muslim. Even just getting ready for a few min, gets pain. Pt lost spouse in September and feels like has gotten puney and less active . They used to walk, and hasn' t walked since. When leg starts to bother her standing still, it then it hurts to walk. Sometimes it does hurt quite a bit to walk. Tries to walk 3k steps a day. hx of oophrectomy and hysterectomy in late 30s, early 40s. in 2018 shelly had gallbladder removal. Treatment Goals Patient/Caregiver Goals be able to stand for longer, get back to walks, get back to using legs more. PT-OP-C Subjective Start: 01/24/24 18:13 Freq: Status: Active Protocol: Document 03/31/24 08:11 [facility] (Rec: 03/31/24 09:01 [facility] [id number]) OP-PT Subjective Patient Comments Patient Comments Ese reports pain left glute 1-2/10 start of sesssion. Ese reports feeling tired start of session. Patient ambulates into session without device ipsilateral trunk sidebend left stance phase. PT-OP-D Balance Start: 01/24/24 18:13 Freq: Status: Active Protocol: Document 03/28/24 08:20 [facility] (Rec: 03/28/24 09:05 [facility] [id number]) Balance Tests Single Limb Standing Single Limb- Left 29 sec PT-OP-G Mobility & Gait Start: 01/24/24 18:13 Freq: Status: Active Protocol: Document 01/25/24 11:32 [facility] (Rec: 01/25/24 13:04 [facility] [id number]) OP Gait Assessment Comments Gait Comments dec stance time LLE w/add of LLE and dec push off LLE Stair Climbing Evaluation Comments Stair Climbing Comments recip w/rails bt dec control and strengthnoted on L up and down PT-OP-J Posture/Palpation/Skin Start: 01/24/24 18:13 Freq: Status: Active Protocol: Document 01/25/24 11:32 [facility] (Rec: 01/25/24 13:04 [facility] [id number]) Posture Evaluation Felisa Postural Classification System Lumbar Protective Mechanism Left AP 0 Lumbar Protective Mechanism Right AP 0 Lumbar Protective Mechanism Left PA 1 Lumbar Protective Mechanism Right PA 0 Comments Posture Comments inc kyphosis, falttened lordosis, L iliac crest higher , equal greater trochanter PT-OP-K Range of Motion Start: 01/24/24 18:13 Freq: Status: Active Protocol: Document 01/25/24 11:32 [facility] (Rec: 01/25/24 13:04 [facility] [id number]) Hip Goniometric Range of Motion Hip Right Active Flexion w/Knee Flexed 108 Straight Leg Raise 81 Left Active Flexion w/Knee Flexed 106 Straight Leg Raise 74 Comments tested w/opp knee bent up PT-OP-L Special Tests Start: 01/24/24 18:13 Freq: Status: Active Protocol: Document 01/25/24 11:32 [facility] (Rec: 01/25/24 13:04 [facility] [id number]) Special Tests Lumbar Spine Special Tests Slump Test Results L positive PT-OP-M Strength Start: 01/24/24 18:13 Freq: Status: Active Protocol: Document 03/28/24 08:20 [facility] (Rec: 03/28/24 09:05 [facility] [id number]) Hip Strength Hip Manual Muscle Testing Right Flexion (L2) 5 Normal Abduction 4 Good External Rotation 5 Normal Internal Rotation 5 Normal Left Flexion (L2) 4 Good Abduction 3+ Fair+ External Rotation 4+ Good+ Internal Rotation 5 Normal Knee Strength Knee Manual Muscle Testing Right Flexion (S2) 5 Normal Extension (L3) 5 Normal Left Flexion (S2) 5 Normal Extension (L3) 5 Normal Ankle/Foot Strength Ankle and Foot Manual Muscle Testing Right Dorsiflexion (L4) 5 Normal Plantarflexion (S1) 5 Normal Left Dorsiflexion (L4) 5 Normal Plantarflexion (S1) 5 Normal Comments PF tested seated B PT-OP-Q Treatments Start: 01/24/24 18:13 Freq: Status: Active Protocol: Document 03/31/24 08:11 [facility] (Rec: 03/31/24 09:01 [facility] [id number]) Therapeutic Exercises Supine Exercises abdominal bracing Supine Exercise Name 1. SL isometric press, bent knee fall out, 3. hookly LE ext w/ bracing Side bilateral Reps/Minutes 1. 20 sec x2 ea 2. X8 each LE 3. X 8 each LE Comments Verbal cues, monitored for pain bridge Side bilateral Reps/Minutes X8 Comments Monit for pain, VC to press into heels. stretches Supine Exercise Name 1. figure 4 2. Modified Thomas3. piriformis Side bilateral Reps/Minutes 60 sec each X 1 Comments Post STM pre MET: One LE on bolster opp on mat for Mod Jb Sidelying Exercises seated hip abd with band Sidelying Exercise Name HEP Side bilateral Resistance mary's igloo green Reps/Minutes one minute hold X1 Comments verbal cues Sitting Exercises seated hip abd with band Side bilateral Resistance level 4 band Reps/Minutes 54 sec, limited by discomfort Comments monitored for pain Seated Pallof press Resistance level one band Reps/Minutes X10 each side Comments verbal cue s monitored for pain Standing Exercises mini squat with band Standing Exercise Name HEP Side bilateral Resistance level 3 band Reps/Minutes X12 Comments review, monitored for pain, Verbal and vis cues self tactile for hip hinge Manual Therapy Treatment Consent Patient gave verbal consent for manual Yes treatment Soft Tissue Mobilization hip flexors at groin Body Location L Mobilization Type Cross-Friction,Sustained Pressure Intensity/Depth Moderate Body Position Hooklying glutes Body Location L glute/ piriformis area Intensity/Depth Moderate Body Position Sidelying Comments with pillow under hip and between LE's Manual Techniques MET for right AI left PI Type left PI right AI and pubic shotgun Reps/Duration 6 X 6 each Comments left foot into mat ( from hooklying ) right manual resistance into hip flexion PT-OP-T Assessment and Plan Start: 01/24/24 18:13 Freq: Status: Active Protocol: Document 03/31/24 08:11 [facility] (Rec: 03/31/24 09:01 [facility] [id number]) Physical Therapy Assessment Goals strength Short Term Goal (STG) Pt will be indep w/HEP STG Duration achieved advancing as able Time Broker Goal (LTG) Pt will score at least 3/5 on all planes LPm and at least 4+ /5 on all BLE MMT to show improved strength for greater ease w/typical daily activties . 02/21-imprvoing 03/28 LTG Duration 05/23 activity Short Term Goal (STG) Pt will be able to stand as needed for muslim and daily homemaking activities w/o pain greater than04/14 02/21-stands about 5 min at muslim then has to sit back down 03/28- most of the time able able to stand for front maker lockstitch to do hair; sits at about 5 min at muslim, has been cooking recently. STG Duration 04/24 Nursing Home Goal (LTG) Pt will be able to start going for neighborhood walks w/o reporting inc pain in Lhip or LE 02/21-started walking indoors w/a group and is progressing inc distance. no pain in leg 03/28-during her good week, she went to [employer] and did well with walking. LTG Duration 05/23 balance Short Term Goal (STG) Pt will be able to do SLS for at least 20 sec on LLE to show improved balance STG Duration achieved 02/21 Time Broker Goal (LTG) Pt will be able to do SLS for at least 30 sec on LLE to show improved balance 02/21-24 sec 03/28-29 sec LTG Duration 05/23 Assessment Summary Assessment Patient reports less discomfort with bridge post VC to push into heels. Patient reports pain is the same end of session. Physical Therapy Plan Frequency and Duration Frequency of Treatment 1-2x/Week Duration of treatment (weeks) 8 Plan of Care Start Date 03/28/24 Plan of Care End Date 05/23/24 Next Visit Focus/Plan Next Note Type Treatment Note Next Visit Plan cont to work on LLE and core strength, work on back, hip and LLE to dec pain
--- NOTE | 2024-04-04 09:48 | PT.OTN ---
Current Diagnoses Lesion of sciatic nerve, unspecified lower limb (04/04/24) Physical Therapy Treatment Note PT-OP-A Visit Information Start: 01/24/24 18:13 Freq: Status: Active Protocol: Document 04/04/24 09:04 [facility] (Rec: 04/04/24 09:46 [facility] [id number]) Out-Patient Physical Therapy Visit Information Visit Information Visit Type Treatment Note Visit Note 06/12 [id number] Visit Start Time 09:05 Visit Stop Time 09:45 Visit Number 17 Number of OFFENSIVE COORDINATOR Visits 0 PT-OP-B Current Condition Start: 01/24/24 18:13 Freq: Status: Active Protocol: Document 01/25/24 11:32 [facility] (Rec: 01/25/24 13:04 [facility] [id number]) Current Condition History of Current Condition Onset Date 2-3 months ago Current Complaints L hip and down lat leg History of Current Condition Pt saw doctor about a month or 2 ago and was dx w/piriformis syndrome and has done exercises from doctor. It started a few weeks before. It starts in L buttocks, and goes down the leg. Can't stand long enough w/[facility]. Even just getting ready for a few min, gets pain. Pt lost spouse in September and feels like has gotten puney and less active . They used to walk, and hasn' t walked since. When leg starts to bother her standing still, it then it hurts to walk. Sometimes it does hurt quite a bit to walk. Tries to walk 3k steps a day. hx of oophrectomy and hysterectomy in late 30s, early 40s. in 2018 shelly had gallbladder removal. Treatment Goals Patient/Caregiver Goals be able to stand for longer, get back to walks, get back to using legs more. PT-OP-C Subjective Start: 01/24/24 18:13 Freq: Status: Active Protocol: Document 04/04/24 09:04 [facility] (Rec: 04/04/24 09:46 [facility] [id number]) OP-PT Subjective Patient Comments Patient Comments Yesterday no pain all day and walked lots of loops. This am not bothering her as much. today didn't walk as many loops d/t having PT. couldnt stand more than 5 min at [facility]. PT-OP-D Balance Start: 01/24/24 18:13 Freq: Status: Active Protocol: Document 03/28/24 08:20 [facility] (Rec: 03/28/24 09:05 [facility] [id number]) Balance Tests Single Limb Standing Single Limb- Left 29 sec PT-OP-G Mobility & Gait Start: 01/24/24 18:13 Freq: Status: Active Protocol: Document 01/25/24 11:32 [facility] (Rec: 01/25/24 13:04 [facility] [id number]) OP Gait Assessment Comments Gait Comments dec stance time LLE w/add of LLE and dec push off LLE Stair Climbing Evaluation Comments Stair Climbing Comments recip w/rails bt dec control and strengthnoted on L up and down PT-OP-J Posture/Palpation/Skin Start: 01/24/24 18:13 Freq: Status: Active Protocol: Document 01/25/24 11:32 [facility] (Rec: 01/25/24 13:04 [facility] [id number]) Posture Evaluation Felisa Postural Classification System Lumbar Protective Mechanism Left AP 0 Lumbar Protective Mechanism Right AP 0 Lumbar Protective Mechanism Left PA 1 Lumbar Protective Mechanism Right PA 0 Comments Posture Comments inc kyphosis, falttened lordosis, L iliac crest higher , equal greater trochanter PT-OP-K Range of Motion Start: 01/24/24 18:13 Freq: Status: Active Protocol: Document 01/25/24 11:32 [facility] (Rec: 01/25/24 13:04 [facility] [id number]) Hip Goniometric Range of Motion Hip Right Active Flexion w/Knee Flexed 108 Straight Leg Raise 81 Left Active Flexion w/Knee Flexed 106 Straight Leg Raise 74 Comments tested w/opp knee bent up PT-OP-L Special Tests Start: 01/24/24 18:13 Freq: Status: Active Protocol: Document 01/25/24 11:32 [facility] (Rec: 01/25/24 13:04 [facility] [id number]) Special Tests Lumbar Spine Special Tests Slump Test Results L positive PT-OP-M Strength Start: 01/24/24 18:13 Freq: Status: Active Protocol: Document 03/28/24 08:20 [facility] (Rec: 03/28/24 09:05 [facility] [id number]) Hip Strength Hip Manual Muscle Testing Right Flexion (L2) 5 Normal Abduction 4 Good External Rotation 5 Normal Internal Rotation 5 Normal Left Flexion (L2) 4 Good Abduction 3+ Fair+ External Rotation 4+ Good+ Internal Rotation 5 Normal Knee Strength Knee Manual Muscle Testing Right Flexion (S2) 5 Normal Extension (L3) 5 Normal Left Flexion (S2) 5 Normal Extension (L3) 5 Normal Ankle/Foot Strength Ankle and Foot Manual Muscle Testing Right Dorsiflexion (L4) 5 Normal Plantarflexion (S1) 5 Normal Left Dorsiflexion (L4) 5 Normal Plantarflexion (S1) 5 Normal Comments PF tested seated B PT-OP-Q Treatments Start: 01/24/24 18:13 Freq: Status: Active Protocol: Document 04/04/24 09:04 [facility] (Rec: 04/04/24 09:46 [facility] [id number]) Therapeutic Exercises Supine Exercises LTR Side bilateral Reps/Minutes 10 Comments cues core Sitting Exercises Seated Pallof press Resistance level one band Reps/Minutes X12 each side Comments verbal cues posture monitored for pain Standing Exercises carry Standing Exercise Name Double arm carry Side bilateral Equipment Used 5# ea hand Reps/Minutes 30ft x2 lunge Standing Exercise Name mini Side bilateral Equipment Used bars Reps/Minutes 10 Comments cues back leg movement hip hike Side bilateral Equipment Used 5in step w/rail Reps/Minutes 12 Comments cues hip only step up Standing Exercise Name to SL march Side bilateral Equipment Used 5 in step Reps/Minutes 12 lateral step up Standing Exercise Name step up and over Side bilateral Equipment Used 5 in step Reps/Minutes X10 each Le Comments cues to control decent paloff press Side bilateral Equipment Used 1 peach bands Reps/Minutes 2x5 Comments cues no trunk motion Manual Therapy Treatment Consent Patient gave verbal consent for manual Yes treatment Soft Tissue Mobilization lumbar Body Location B SI region, along sacrum, ES R>L and QL Mobilization Type Rolling,Sustained Pressure Intensity/Depth Moderate Body Position Sidelying glutes Body Location L glute/ piriformis area Intensity/Depth Moderate Body Position Sidelying Comments with pillow under hip and between LE's PT-OP-T Assessment and Plan Start: 01/24/24 18:13 Freq: Status: Active Protocol: Document 04/04/24 09:04 [facility] (Rec: 04/04/24 09:46 [facility] [id number]) Physical Therapy Assessment Goals strength Short Term Goal (STG) Pt will be indep w/HEP STG Duration achieved advancing as able [facility] Goal (LTG) Pt will score at least 3/5 on all planes LPm and at least 4+ /5 on all BLE MMT to show improved strength for greater ease w/typical daily activties . 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 STG Duration 04/24 [facility] Goal (LTG) Pt will be able to start going for neighborhood walks w/o reporting inc pain in Lhip or LE 02/21-started walking indoors w/a group and is progressing inc distance. no pain in leg 03/28-during her good week, she went to [employer] and did well with walking. LTG Duration 05/23 balance Short Term Goal (STG) Pt will be able to do SLS for at least 20 sec on LLE to show improved balance STG Duration achieved 02/21 [employer] Goal (LTG) Pt will be able to do SLS for at least 30 sec on LLE to show improved balance 02/21-24 sec 03/28-29 sec LTG Duration 05/23 Assessment Summary Assessment no inc pain in L LB or LLE but some R SI pain noted with exercises today. Cues for posture and glute engagment throughout. Physical Therapy Plan Frequency and Duration Frequency of Treatment 1-2x/Week Duration of treatment (weeks) 8 Plan of Care Start Date 03/28/24 Plan of Care End Date 05/23/24 Next Visit Focus/Plan Next Note Type Treatment Note Next Visit Plan cont to work on LLE and core strength, work on back, hip and LLE to dec pain
--- NOTE | 2024-04-06 09:03 | PT.OTN ---
Current Diagnoses Lesion of sciatic nerve, unspecified lower limb (04/06/24) Physical Therapy Treatment Note PT-OP-A Visit Information Start: 01/24/24 18:13 Freq: Status: Active Protocol: Document 04/06/24 08:17 [facility] (Rec: 04/06/24 09:03 [facility] [id number]) Out-Patient Physical Therapy Visit Information Visit Information Visit Type Treatment Note Visit Note 07/13 [id number] Visit Start Time 08:17 Visit Stop Time 08:57 Visit Number 18 Number of DIALS SUPERVISOR Visits 0 PT-OP-B Current Condition Start: 01/24/24 18:13 Freq: Status: Active Protocol: Document 01/25/24 11:32 [facility] (Rec: 01/25/24 13:04 [facility] [id number]) Current Condition History of Current Condition Onset Date 2-3 months ago Current Complaints L hip and down lat leg History of Current Condition Pt saw doctor about a month or 2 ago and was dx w/piriformis syndrome and has done exercises from doctor. It started a few weeks before. It starts in L buttocks, and goes down the leg. Can't stand long enough w/[facility]. Even just getting ready for a few min, gets pain. Pt lost spouse in September and feels like has gotten puney and less active . They used to walk, and hasn' t walked since. When leg starts to bother her standing still, it then it hurts to walk. Sometimes it does hurt quite a bit to walk. Tries to walk 3k steps a day. hx of oophrectomy and hysterectomy in late 30s, early 40s. in 2018 shelly had gallbladder removal. Treatment Goals Patient/Caregiver Goals be able to stand for longer, get back to walks, get back to using legs more. PT-OP-C Subjective Start: 01/24/24 18:13 Freq: Status: Active Protocol: Document 04/06/24 08:17 [facility] (Rec: 04/06/24 09:03 [facility] [id number]) OP-PT Subjective Patient Comments Patient Comments Pt reports last 5 days have been pretty good for LLE pain. RSI pain she hasn't noticed past couple days PT-OP-D Balance Start: 01/24/24 18:13 Freq: Status: Active Protocol: Document 03/28/24 08:20 [facility] (Rec: 03/28/24 09:05 [facility] [id number]) Balance Tests Single Limb Standing Single Limb- Left 29 sec PT-OP-G Mobility & Gait Start: 01/24/24 18:13 Freq: Status: Active Protocol: Document 01/25/24 11:32 [facility] (Rec: 01/25/24 13:04 [facility] [id number]) OP Gait Assessment Comments Gait Comments dec stance time LLE w/add of LLE and dec push off LLE Stair Climbing Evaluation Comments Stair Climbing Comments recip w/rails bt dec control and strengthnoted on L up and down PT-OP-J Posture/Palpation/Skin Start: 01/24/24 18:13 Freq: Status: Active Protocol: Document 01/25/24 11:32 [facility] (Rec: 01/25/24 13:04 [facility] [id number]) Posture Evaluation Felisa Postural Classification System Lumbar Protective Mechanism Left AP 0 Lumbar Protective Mechanism Right AP 0 Lumbar Protective Mechanism Left PA 1 Lumbar Protective Mechanism Right PA 0 Comments Posture Comments inc kyphosis, falttened lordosis, L iliac crest higher , equal greater trochanter PT-OP-K Range of Motion Start: 01/24/24 18:13 Freq: Status: Active Protocol: Document 01/25/24 11:32 [facility] (Rec: 01/25/24 13:04 [facility] [id number]) Hip Goniometric Range of Motion Hip Right Active Flexion w/Knee Flexed 108 Straight Leg Raise 81 Left Active Flexion w/Knee Flexed 106 Straight Leg Raise 74 Comments tested w/opp knee bent up PT-OP-L Special Tests Start: 01/24/24 18:13 Freq: Status: Active Protocol: Document 01/25/24 11:32 [facility] (Rec: 01/25/24 13:04 [facility] [id number]) Special Tests Lumbar Spine Special Tests Slump Test Results L positive PT-OP-M Strength Start: 01/24/24 18:13 Freq: Status: Active Protocol: Document 03/28/24 08:20 [facility] (Rec: 03/28/24 09:05 [facility] [id number]) Hip Strength Hip Manual Muscle Testing Right Flexion (L2) 5 Normal Abduction 4 Good External Rotation 5 Normal Internal Rotation 5 Normal Left Flexion (L2) 4 Good Abduction 3+ Fair+ External Rotation 4+ Good+ Internal Rotation 5 Normal Knee Strength Knee Manual Muscle Testing Right Flexion (S2) 5 Normal Extension (L3) 5 Normal Left Flexion (S2) 5 Normal Extension (L3) 5 Normal Ankle/Foot Strength Ankle and Foot Manual Muscle Testing Right Dorsiflexion (L4) 5 Normal Plantarflexion (S1) 5 Normal Left Dorsiflexion (L4) 5 Normal Plantarflexion (S1) 5 Normal Comments PF tested seated B PT-OP-Q Treatments Start: 01/24/24 18:13 Freq: Status: Active Protocol: Document 04/06/24 08:17 [facility] (Rec: 04/06/24 09:03 [facility] [id number]) Gym Equipment Shuttle Balance red Comments fwd : WBOS & NBOS Therapeutic Exercises Supine Exercises LTR Side bilateral Reps/Minutes 10 Comments cues core Sitting Exercises rhythmic stabilization Side bilateral Resistance light Reps/Minutes manual resistance all directions mult reps Comments cues keeping body in same position Seated Pallof press Resistance level one band Reps/Minutes X15 each side Comments verbal cues posture monitored for pain Standing Exercises carry Standing Exercise Name Double arm carry Side bilateral Equipment Used 5# ea hand Reps/Minutes 20ft x2 lunge Standing Exercise Name mini Side bilateral Equipment Used bar [employer]ZZ[employer] Reps/Minutes 10 Comments cues back leg movement hip hike Side bilateral Equipment Used 6in step w/rail Reps/Minutes 12 Comments cues hip only-VC and tactile cues step up Standing Exercise Name to SL march Side bilateral Equipment Used 6 in step Reps/Minutes 12 mini squat with band Standing Exercise Name HEP review Side bilateral Reps/Minutes X12 Comments tap to chair-cues to bend knees more lateral step up Side bilateral Equipment Used 6 in step Reps/Minutes X10 each Le Comments cues to control decent Rhythmic stabilzation Side bilateral Resistance light Reps/Minutes manual resistance all directions mult reps Comments monitored for pain-difficulty w/AP and mild pain paloff press Side bilateral Equipment Used 1 orange bands Reps/Minutes 2x8 Comments cues no trunk motion Manual Therapy Treatment Consent Patient gave verbal consent for manual Yes treatment Soft Tissue Mobilization lumbar Body Location B SI region, along sacrum, ES R>L and QL Mobilization Type Rolling,Sustained Pressure Intensity/Depth Moderate Body Position Sidelying glutes Body Location L glute/ piriformis area Intensity/Depth Moderate Body Position Sidelying Comments with pillow between LE's PT-OP-T Assessment and Plan Start: 01/24/24 18:13 Freq: Status: Active Protocol: Document 04/06/24 08:17 [facility] (Rec: 04/06/24 09:03 [facility] [id number]) Physical Therapy Assessment Goals strength Short Term Goal (STG) Pt will be indep w/HEP STG Duration achieved advancing as able Internal Controls Analyst Goal (LTG) Pt will score at least 3/5 on all planes LPm and at least 4+ /5 on all BLE MMT to show improved strength for greater ease w/typical daily activties . 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 STG Duration 04/24 Internal Controls Analyst Goal (LTG) Pt will be able to start going for neighborhood walks w/o reporting inc pain in Lhip or LE 02/21-started walking indoors w/a group and is progressing inc distance. no pain in leg 03/28-during her good week, she went to [place] and did well with walking. LTG Duration 05/23 balance Short Term Goal (STG) Pt will be able to do SLS for at least 20 sec on LLE to show improved balance STG Duration achieved 02/21 Internal Controls Analyst Goal (LTG) Pt will be able to do SLS for at least 30 sec on LLE to show improved balance 02/21-24 sec 03/28-29 sec LTG Duration 05/23 Assessment Summary Assessment Pt improved with tolerance to standing and exercise difficulty. No pain noted except mild pain in back w/ standing rhythmic stabilization Physical Therapy Plan Frequency and Duration Frequency of Treatment 1-2x/Week Duration of treatment (weeks) 8 Plan of Care Start Date 03/28/24 Plan of Care End Date 05/23/24 Next Visit Focus/Plan Next Note Type Treatment Note Next Visit Plan cont to work on LLE and core strength-see if can inc resistance , work on back, hip and LLE to dec pain
--- NOTE | 2024-04-11 10:46 | PT.OTN ---
Current Diagnoses Lesion of sciatic nerve, unspecified lower limb (04/11/24) Physical Therapy Treatment Note PT-OP-A Visit Information Start: 01/24/24 18:13 Freq: Status: Active Protocol: Document 04/11/24 08:54 AB (Rec: 04/11/24 10:45 AB [id number]) Out-Patient Physical Therapy Visit Information Visit Information Visit Type Treatment Note Visit Note 08/12 [id number] Visit Start Time 09:01 Visit Stop Time 09:45 Visit Number 19 Number of NON PROFIT DIRECTOR Visits 1 PT-OP-B Current Condition Start: 01/24/24 18:13 Freq: Status: Active Protocol: Document 01/25/24 11:32 LR (Rec: 01/25/24 13:04 [facility] [id number]) Current Condition History of Current Condition Onset Date 2-3 months ago Current Complaints L hip and down lat leg History of Current Condition Pt saw doctor about a month or 2 ago and was dx w/piriformis syndrome and has done exercises from doctor. It started a few weeks before. It starts in L buttocks, and goes down the leg. Can't stand long enough w/[employer]. Even just getting ready for a few min, gets pain. Pt lost spouse in September and feels like has gotten puney and less active . They used to walk, and hasn' t walked since. When leg starts to bother her standing still, it then it hurts to walk. Sometimes it does hurt quite a bit to walk. Tries to walk 3k steps a day. hx of oophrectomy and hysterectomy in late 30s, early 40s. in 2018 shelly had gallbladder removal. Treatment Goals Patient/Caregiver Goals be able to stand for longer, get back to walks, get back to using legs more. PT-OP-C Subjective Start: 01/24/24 18:13 Freq: Status: Active Protocol: Document 04/11/24 08:54 AB (Rec: 04/11/24 10:45 AB [id number]) OP-PT Subjective Patient Comments Patient Comments Patient reports she took the [place] class yesterday, and muscles are sore, walked a little less yesterday, reports standing in [employer] continues to be a problem amy 5 minutes. PT-OP-D Balance Start: 01/24/24 18:13 Freq: Status: Active Protocol: Document 03/28/24 08:20 LR (Rec: 03/28/24 09:05 [facility] [id number]) Balance Tests Single Limb Standing Single Limb- Left 29 sec PT-OP-G Mobility & Gait Start: 01/24/24 18:13 Freq: Status: Active Protocol: Document 01/25/24 11:32 [facility] (Rec: 01/25/24 13:04 [facility] [id number]) OP Gait Assessment Comments Gait Comments dec stance time LLE w/add of LLE and dec push off LLE Stair Climbing Evaluation Comments Stair Climbing Comments recip w/rails bt dec control and strengthnoted on L up and down PT-OP-J Posture/Palpation/Skin Start: 01/24/24 18:13 Freq: Status: Active Protocol: Document 01/25/24 11:32 [facility] (Rec: 01/25/24 13:04 [facility] [id number]) Posture Evaluation Felisa Postural Classification System Lumbar Protective Mechanism Left AP 0 Lumbar Protective Mechanism Right AP 0 Lumbar Protective Mechanism Left PA 1 Lumbar Protective Mechanism Right PA 0 Comments Posture Comments inc kyphosis, falttened lordosis, L iliac crest higher , equal greater trochanter PT-OP-K Range of Motion Start: 01/24/24 18:13 Freq: Status: Active Protocol: Document 01/25/24 11:32 [facility] (Rec: 01/25/24 13:04 [facility] [id number]) Hip Goniometric Range of Motion Hip Right Active Flexion w/Knee Flexed 108 Straight Leg Raise 81 Left Active Flexion w/Knee Flexed 106 Straight Leg Raise 74 Comments tested w/opp knee bent up PT-OP-L Special Tests Start: 01/24/24 18:13 Freq: Status: Active Protocol: Document 01/25/24 11:32 [facility] (Rec: 01/25/24 13:04 [facility] [id number]) Special Tests Lumbar Spine Special Tests Slump Test Results L positive PT-OP-M Strength Start: 01/24/24 18:13 Freq: Status: Active Protocol: Document 03/28/24 08:20 [facility] (Rec: 03/28/24 09:05 [facility] [id number]) Hip Strength Hip Manual Muscle Testing Right Flexion (L2) 5 Normal Abduction 4 Good External Rotation 5 Normal Internal Rotation 5 Normal Left Flexion (L2) 4 Good Abduction 3+ Fair+ External Rotation 4+ Good+ Internal Rotation 5 Normal Knee Strength Knee Manual Muscle Testing Right Flexion (S2) 5 Normal Extension (L3) 5 Normal Left Flexion (S2) 5 Normal Extension (L3) 5 Normal Ankle/Foot Strength Ankle and Foot Manual Muscle Testing Right Dorsiflexion (L4) 5 Normal Plantarflexion (S1) 5 Normal Left Dorsiflexion (L4) 5 Normal Plantarflexion (S1) 5 Normal Comments PF tested seated B PT-OP-Q Treatments Start: 01/24/24 18:13 Freq: Status: Active Protocol: Document 04/11/24 08:54 AB (Rec: 04/11/24 10:45 AB [id number]) Therapeutic Exercises Supine Exercises stretches Supine Exercise Name 1. figure 4 2. Modified Jb3. piriformis Side bilateral Reps/Minutes 60 sec each X 1 Lpirif and fig 4 Jb X 2 30 to 60 sec Comments post Pallof press noted stands with left LE in ER at hip Sitting Exercises seated hip abd with band Side bilateral Resistance level 3 Reps/Minutes 36 sec limited by pain Comments monitored for pain Standing Exercises calf stretches Standing Exercise Name Gastroc Side bilateral Equipment Used on NEL Reps/Minutes 40 sec carry Standing Exercise Name Double arm carry Side bilateral Equipment Used 5# ea hand Reps/Minutes 20ft x3 Rhythmic stabilzation Side bilateral Resistance light Reps/Minutes manual resistance all directions mult reps paloff press Side bilateral Equipment Used 1 orange bands Reps/Minutes 2x8 Comments VC to avoid toe out, rep inc pain first set SI, less post Left hip stretche sit to stand Standing Exercise Name standard chair Side bilateral Resistance level 3 band tied above knees Reps/Minutes X10 Comments cues knees apart and full ext of hips when reaching upright resisted walk Standing Exercise Name fwd/back- (HEP review) Side bilateral Equipment Used lvl 2 at shins-at bar Reps/Minutes 8ft x4 laps Comments level 2 this session sidestep Standing Exercise Name HEP (hand out) Side bilateral Equipment Used lvl 2 at shins Reps/Minutes 8 ft x4 laps Comments level 2 this session Manual Therapy Treatment Consent Patient gave verbal consent for manual Yes treatment Soft Tissue Mobilization hip flexors at groin Body Location L>R Mobilization Type Cross-Friction,Sustained Pressure Intensity/Depth Moderate Body Position Hooklying glutes Body Location L glute/ piriformis area Intensity/Depth Moderate Body Position Sidelying Comments with pillow between LE's Neuro Re-Education Treatment Balance Activities wall fall Reps/Duration X5 X 2 Comments close supervision, pillow behind back PT-OP-T Assessment and Plan Start: 01/24/24 18:13 Freq: Status: Active Protocol: Document 04/11/24 08:54 AB (Rec: 04/11/24 10:45 AB [id number]) Physical Therapy Assessment Goals strength Short Term Goal (STG) Pt will be indep w/HEP STG Duration achieved advancing as able Experimental Aircraft Mechanic Goal (LTG) Pt will score at least 3/5 on all planes LPm and at least 4+ /5 on all BLE MMT to show improved strength for greater ease w/typical daily activties . 02/21-imprvoing 03/28 LTG Duration 05/23 activity Short Term Goal (STG) Pt will be able to stand as needed for [employer] and daily homemaking activities w/o pain greater than1/10 02/21-stands about 5 min at [employer] then has to sit back down 03/28- most of the time able able to stand for multimedia producer to do hair; sits at about 5 min at [employer], has been cooking recently. STG Duration 04/24 Experimental Aircraft Mechanic Goal (LTG) Pt will be able to start going for neighborhood walks w/o reporting inc pain in Lhip or LE 02/21-started walking indoors w/a group and is progressing inc distance. no pain in leg 03/28-during her good week, she went to [employer] and did well with walking. LTG Duration 05/23 balance Short Term Goal (STG) Pt will be able to do SLS for at least 20 sec on LLE to show improved balance STG Duration achieved 02/21 Skilled Nursing Goal (LTG) Pt will be able to do SLS for at least 30 sec on LLE to show improved balance 02/21-24 sec 03/28-29 sec LTG Duration 05/23 Assessment Summary Assessment Patient reports feeling OK end of session, reported inc discomfort first set Pallof press, less discomfort post manual on seconds set. VC to avoid toeing out left LE throughout session. Physical Therapy Plan Frequency and Duration Frequency of Treatment 1-2x/Week Duration of treatment (weeks) 8 Plan of Care Start Date 03/28/24 Plan of Care End Date 05/23/24 Next Visit Focus/Plan Next Note Type Treatment Note Next Visit Plan KX mod next session cont to work on LLE and core strength-see if can inc resistance , work on back, hip and LLE to dec pain
--- NOTE | 2024-04-13 10:31 | PT.OTN ---
Current Diagnoses Lesion of sciatic nerve, unspecified lower limb (04/13/24) Physical Therapy Treatment Note PT-OP-A Visit Information Start: 01/24/24 18:13 Freq: Status: Active Protocol: Document 04/13/24 09:48 [facility] (Rec: 04/13/24 10:30 [facility] [id number]) Out-Patient Physical Therapy Visit Information Visit Information Visit Type Treatment Note Visit Note 09/12 [id number] Visit Start Time 09:50 Visit Stop Time 10:30 Visit Number 20 Number of NUT DEHYDRATOR OPERATOR Visits 0 PT-OP-B Current Condition Start: 01/24/24 18:13 Freq: Status: Active Protocol: Document 01/25/24 11:32 [facility] (Rec: 01/25/24 13:04 [facility] [id number]) Current Condition History of Current Condition Onset Date 2-3 months ago Current Complaints L hip and down lat leg History of Current Condition Pt saw doctor about a month or 2 ago and was dx w/piriformis syndrome and has done exercises from doctor. It started a few weeks before. It starts in L buttocks, and goes down the leg. Can't stand long enough w/mu-ism. Even just getting ready for a few min, gets pain. Pt lost spouse in September and feels like has gotten puney and less active . They used to walk, and hasn' t walked since. When leg starts to bother her standing still, it then it hurts to walk. Sometimes it does hurt quite a bit to walk. Tries to walk 3k steps a day. hx of oophrectomy and hysterectomy in late 30s, early 40s. in 2018 shelly had gallbladder removal. Treatment Goals Patient/Caregiver Goals be able to stand for longer, get back to walks, get back to using legs more. PT-OP-C Subjective Start: 01/24/24 18:13 Freq: Status: Active Protocol: Document 04/13/24 09:48 [facility] (Rec: 04/13/24 10:30 [facility] [id number]) OP-PT Subjective Patient Comments Patient Comments Pt had some pain but not a lot on wednesday. [place] fine yesterday though and did her full walking. She had exercises last night and this AM wasn't as sore. PT-OP-D Balance Start: 01/24/24 18:13 Freq: Status: Active Protocol: Document 03/28/24 08:20 [facility] (Rec: 03/28/24 09:05 [facility] [id number]) Balance Tests Single Limb Standing Single Limb- Left 29 sec PT-OP-G Mobility & Gait Start: 01/24/24 18:13 Freq: Status: Active Protocol: Document 01/25/24 11:32 [facility] (Rec: 01/25/24 13:04 [facility] [id number]) OP Gait Assessment Comments Gait Comments dec stance time LLE w/add of LLE and dec push off LLE Stair Climbing Evaluation Comments Stair Climbing Comments recip w/rails bt dec control and strengthnoted on L up and down PT-OP-J Posture/Palpation/Skin Start: 01/24/24 18:13 Freq: Status: Active Protocol: Document 01/25/24 11:32 [facility] (Rec: 01/25/24 13:04 [facility] [id number]) Posture Evaluation Felisa Postural Classification System Lumbar Protective Mechanism Left AP 0 Lumbar Protective Mechanism Right AP 0 Lumbar Protective Mechanism Left PA 1 Lumbar Protective Mechanism Right PA 0 Comments Posture Comments inc kyphosis, falttened lordosis, L iliac crest higher , equal greater trochanter PT-OP-K Range of Motion Start: 01/24/24 18:13 Freq: Status: Active Protocol: Document 01/25/24 11:32 [facility] (Rec: 01/25/24 13:04 [facility] [id number]) Hip Goniometric Range of Motion Hip Right Active Flexion w/Knee Flexed 108 Straight Leg Raise 81 Left Active Flexion w/Knee Flexed 106 Straight Leg Raise 74 Comments tested w/opp knee bent up PT-OP-L Special Tests Start: 01/24/24 18:13 Freq: Status: Active Protocol: Document 01/25/24 11:32 [facility] (Rec: 01/25/24 13:04 [facility] [id number]) Special Tests Lumbar Spine Special Tests Slump Test Results L positive PT-OP-M Strength Start: 01/24/24 18:13 Freq: Status: Active Protocol: Document 03/28/24 08:20 [facility] (Rec: 03/28/24 09:05 [facility] [id number]) Hip Strength Hip Manual Muscle Testing Right Flexion (L2) 5 Normal Abduction 4 Good External Rotation 5 Normal Internal Rotation 5 Normal Left Flexion (L2) 4 Good Abduction 3+ Fair+ External Rotation 4+ Good+ Internal Rotation 5 Normal Knee Strength Knee Manual Muscle Testing Right Flexion (S2) 5 Normal Extension (L3) 5 Normal Left Flexion (S2) 5 Normal Extension (L3) 5 Normal Ankle/Foot Strength Ankle and Foot Manual Muscle Testing Right Dorsiflexion (L4) 5 Normal Plantarflexion (S1) 5 Normal Left Dorsiflexion (L4) 5 Normal Plantarflexion (S1) 5 Normal Comments PF tested seated B PT-OP-Q Treatments Start: 01/24/24 18:13 Freq: Status: Active Protocol: Document 04/13/24 09:48 [facility] (Rec: 04/13/24 10:30 [facility] [id number]) Gym Equipment Shuttle Balance red Details progressive dec UE support Comments fwd : WBOS & NBOS & staggered stance side: WBOS & NBOS Therapeutic Exercises Standing Exercises carry Standing Exercise Name Double arm carry Side bilateral Equipment Used 5# ea hand Reps/Minutes 20ft x2 Comments march lunge Standing Exercise Name mini Side bilateral Equipment Used bar WIRE SETTER Reps/Minutes 5 Comments cues back leg movement hip hike Side bilateral Equipment Used 6in step w/rail Reps/Minutes 15 Comments cues hip only-VC and tactile cues step up Standing Exercise Name to SL march Side bilateral Equipment Used 6 in step Reps/Minutes 12 lateral step up Side bilateral Equipment Used 6 in step Reps/Minutes X15 each Le Comments cues to control decent paloff press Side bilateral Equipment Used 1 orange bands Reps/Minutes 10 Comments did notice in LLE w/LLE closer to anchor Therapeutic Activity Therapeutic Activity posture Reps/Minutes 7 min Comments working on pelvic tilts, wt shifts, staggered stance, WBOs , NBOS adjustments to dec pain in leg Manual Therapy Treatment Consent Patient gave verbal consent for manual Yes treatment Soft Tissue Mobilization lumbar Body Location L iliolumbar lig, QL Mobilization Type Rolling,Sustained Pressure Comments w/post dep Joint Mobilizations innominate Comments add L c/r hip Body Position Sidelying Comments L add c/r PT-OP-T Assessment and Plan Start: 01/24/24 18:13 Freq: Status: Active Protocol: Document 04/13/24 09:48 [facility] (Rec: 04/13/24 10:30 [facility] [id number]) Physical Therapy Assessment Goals strength Short Term Goal (STG) Pt will be indep w/HEP STG Duration achieved advancing as able Balance Wheel Facer Goal (LTG) Pt will score at least 3/5 on all planes LPm and at least 4+ /5 on all BLE MMT to show improved strength for greater ease w/typical daily activties . 02/21-imprvoing 03/28 LTG Duration 05/23 activity Short Term Goal (STG) Pt will be able to stand as needed for mu-ism and daily homemaking activities w/o pain greater than1/10 02/21-stands about 5 min at mu-ism then has to sit back down 03/28- most of the time able able to stand for multimedia educational specialist to do hair; sits at about 5 min at mu-ism, has been cooking recently. STG Duration 04/24 Balance Wheel Facer Goal (LTG) Pt will be able to start going for neighborhood walks w/o reporting inc pain in Lhip or LE 02/21-started walking indoors w/a group and is progressing inc distance. no pain in leg 03/28-during her good week, she went to [place] and did well with walking. LTG Duration 05/23 balance Short Term Goal (STG) Pt will be able to do SLS for at least 20 sec on LLE to show improved balance STG Duration achieved 02/21 Fdc Goal (LTG) Pt will be able to do SLS for at least 30 sec on LLE to show improved balance 02/21-24 sec 03/28-29 sec LTG Duration 05/23 Assessment Summary Assessment Pt was able to adjust w/some positions to dec pain today when stadning statically today . DId have less LLE pain after manual Physical Therapy Plan Frequency and Duration Frequency of Treatment 1-2x/Week Duration of treatment (weeks) 8 Plan of Care Start Date 03/28/24 Plan of Care End Date 05/23/24 Next Visit Focus/Plan Next Note Type Treatment Note Next Visit Plan cont to work on LLE and core strength-see if can inc resistance , work on back, hip and LLE to dec pain
--- NOTE | 2024-04-20 12:23 | PT.OTN ---
Current Diagnoses Lesion of sciatic nerve, unspecified lower limb (04/20/24) Physical Therapy Treatment Note PT-OP-A Visit Information Start: 01/24/24 18:13 Freq: Status: Active Protocol: Document 04/20/24 11:33 [facility] (Rec: 04/20/24 12:22 [facility] [id number]) Out-Patient Physical Therapy Visit Information Visit Information Visit Type Discharge Summary Visit Start Time 11:34 Visit Stop Time 12:14 Visit Number 21 Number of SENIOR STAFF CONSULTANT Visits 0 PT-OP-B Current Condition Start: 01/24/24 18:13 Freq: Status: Active Protocol: Document 01/25/24 11:32 [facility] (Rec: 01/25/24 13:04 [facility] [id number]) Current Condition History of Current Condition Onset Date 2-3 months ago Current Complaints L hip and down lat leg History of Current Condition Pt saw doctor about a month or 2 ago and was dx w/piriformis syndrome and has done exercises from doctor. It started a few weeks before. It starts in L buttocks, and goes down the leg. Can't stand long enough w/[facility]. Even just getting ready for a few min, gets pain. Pt lost spouse in September and feels like has gotten puney and less active . They used to walk, and hasn' t walked since. When leg starts to bother her standing still, it then it hurts to walk. Sometimes it does hurt quite a bit to walk. Tries to walk 3k steps a day. hx of oophrectomy and hysterectomy in late 30s, early 40s. in 2018 shelly had gallbladder removal. Treatment Goals Patient/Caregiver Goals be able to stand for longer, get back to walks, get back to using legs more. PT-OP-C Subjective Start: 01/24/24 18:13 Freq: Status: Active Protocol: Document 04/20/24 11:33 [facility] (Rec: 04/20/24 12:22 [facility] [id number]) OP-PT Subjective Patient Comments Patient Comments Pt reports had a bad week last week but pretty good today. Started to feel beter the day before yesterday. Stood in [facility] for 2 min at a time for a couple reps. PT-OP-D Balance Start: 01/24/24 18:13 Freq: Status: Active Protocol: Document 04/20/24 11:33 [facility] (Rec: 04/20/24 12:22 [facility] [id number]) Balance Tests Single Limb Standing Single Limb- Left >30 sec PT-OP-G Mobility & Gait Start: 01/24/24 18:13 Freq: Status: Active Protocol: Document 01/25/24 11:32 [facility] (Rec: 01/25/24 13:04 [facility] [id number]) OP Gait Assessment Comments Gait Comments dec stance time LLE w/add of LLE and dec push off LLE Stair Climbing Evaluation Comments Stair Climbing Comments recip w/rails bt dec control and strengthnoted on L up and down PT-OP-J Posture/Palpation/Skin Start: 01/24/24 18:13 Freq: Status: Active Protocol: Document 01/25/24 11:32 [facility] (Rec: 01/25/24 13:04 [facility] [id number]) Posture Evaluation Felisa Postural Classification System Lumbar Protective Mechanism Left AP 0 Lumbar Protective Mechanism Right AP 0 Lumbar Protective Mechanism Left PA 1 Lumbar Protective Mechanism Right PA 0 Comments Posture Comments inc kyphosis, falttened lordosis, L iliac crest higher , equal greater trochanter PT-OP-K Range of Motion Start: 01/24/24 18:13 Freq: Status: Active Protocol: Document 01/25/24 11:32 [facility] (Rec: 01/25/24 13:04 [facility] [id number]) Hip Goniometric Range of Motion Hip Right Active Flexion w/Knee Flexed 108 Straight Leg Raise 81 Left Active Flexion w/Knee Flexed 106 Straight Leg Raise 74 Comments tested w/opp knee bent up PT-OP-L Special Tests Start: 01/24/24 18:13 Freq: Status: Active Protocol: Document 01/25/24 11:32 [facility] (Rec: 01/25/24 13:04 [facility] [id number]) Special Tests Lumbar Spine Special Tests Slump Test Results L positive PT-OP-M Strength Start: 01/24/24 18:13 Freq: Status: Active Protocol: Document 04/20/24 11:33 [facility] (Rec: 04/20/24 12:22 [facility] [id number]) Hip Strength Hip Manual Muscle Testing Right Flexion (L2) 5 Normal Abduction 4 Good External Rotation 5 Normal Internal Rotation 5 Normal Left Flexion (L2) 4+ Good+ Abduction 3+ Fair+ External Rotation 4+ Good+ Internal Rotation 5 Normal Knee Strength Knee Manual Muscle Testing Right Flexion (S2) 5 Normal Extension (L3) 5 Normal Left Flexion (S2) 5 Normal Extension (L3) 5 Normal Ankle/Foot Strength Ankle and Foot Manual Muscle Testing Right Dorsiflexion (L4) 5 Normal Plantarflexion (S1) 5 Normal Left Dorsiflexion (L4) 5 Normal Plantarflexion (S1) 5 Normal Comments PF tested seated B PT-OP-Q Treatments Start: 01/24/24 18:13 Freq: Status: Active Protocol: Document 04/20/24 11:33 [facility] (Rec: 04/20/24 12:22 [facility] [id number]) Therapeutic Exercises Supine Exercises LTR Side bilateral Reps/Minutes 10 Comments cues core bridge Supine Exercise Name SL Side bilateral Reps/Minutes X8 Comments Monit for pain, VC to press into heels. stretches Supine Exercise Name 1. piriformis 2. figure 4 Side left Reps/Minutes 60 sec Sidelying Exercises hip abd Side left Reps/Minutes 10 Comments cues for leg back and knee straight Standing Exercises calf stretches Standing Exercise Name Gastroc Side bilateral Equipment Used stairs Reps/Minutes 60 sec hip hike Side bilateral Equipment Used 6in step w/rail Reps/Minutes 15 Comments cues hip only-VC and tactile cues step up Standing Exercise Name to SL march Side bilateral Equipment Used 6 in step Reps/Minutes 12 mini squat with band Standing Exercise Name mini squat w/o band Side bilateral Reps/Minutes 15 Other Exercises isometrics Other Exercise Name BLE MMT and LPM Manual Therapy Treatment Consent Patient gave verbal consent for manual Yes treatment Soft Tissue Mobilization glutes Body Location L glute/ piriformis area Intensity/Depth Moderate Body Position Sidelying Comments with pillow between LE's ITB Body Location L Mobilization Type Rolling Intensity/Depth Moderate Body Position Hooklying PT-OP-T Assessment and Plan Start: 01/24/24 18:13 Freq: Status: Active Protocol: Document 04/20/24 11:33 [facility] (Rec: 04/20/24 12:22 [facility] [id number]) Physical Therapy Assessment Goals strength Short Term Goal (STG) Pt will be indep w/HEP STG Duration achieved advancing as able Penitentiary Goal (LTG) Pt will score at least 3/5 on all planes LPm and at least 4+ /5 on all BLE MMT to show improved strength for greater ease w/typical daily activties . 1119-imprvoing 03/28-hip abd still weak; LPM 2/5 all planes LTG Duration 05/23 activity Short Term Goal (STG) Pt will be able to stand as needed for [facility] and daily homemaking activities w/o pain greater than/10 02/21-stands about 5 min at [facility] then has to sit back down 03/28- most of the time able able to stand for part time to do hair; sits at about 5 min at [facility], has been cooking recently. 04/20-able to do kitchen work, but no more than 2-5 min at [facility] STG Duration 04/24 Validation Scientist Goal (LTG) Pt will be able to start going for neighborhood walks w/o reporting inc pain in Lhip or LE 02/21-started walking indoors w/a group and is progressing inc distance. no pain in leg 03/28-during her good week, she went to [employer] and did well with walking. LTG Duration achieved w/walking most of the time-occ causes pain balance Short Term Goal (STG) Pt will be able to do SLS for at least 20 sec on LLE to show improved balance STG Duration achieved 02/21 Validation Scientist Goal (LTG) Pt will be able to do SLS for at least 30 sec on LLE to show improved balance 02/21-24 sec 03/28-29 sec LTG Duration achieved 04/20 Assessment Summary Assessment Pt has made progress w/PT and has good and bad days but overall pain in LLE is dec since starting PT. she has improved in strength but still lacks abd strength which is likely related today. Exercises given are to help focus on this. Physical Therapy Plan Discharge Physical Therapy Discharge Comments goals partially met
--- NOTE | 2024-04-20 12:23 | PT.OPDS ---
Current Diagnoses Lesion of sciatic nerve, unspecified lower limb (04/20/24) Visit Care Team Role Provider Type Sharon Xiong DO Attending Provider Physician Family Provider Primary Care Provider Referring Provider Specialty: Family Practice Address: [address] [place] [address], [facility] [address], [place], [address] Email: [email or web address] Visit Number Visit Number 21 Discharge Summary PT-OP-B Current Condition Start: 01/24/24 18:13 Freq: Status: Active Protocol: Document 01/25/24 11:32 [facility] (Rec: 01/25/24 13:04 [facility] [id number]) Current Condition History of Current Condition Onset Date 2-3 months ago Current Complaints L hip and down lat leg History of Current Condition Pt saw doctor about a month or 2 ago and was dx w/piriformis syndrome and has done exercises from doctor. It started a few weeks before. It starts in L buttocks, and goes down the leg. Can't stand long enough w/[facility]. Even just getting ready for a few min, gets pain. Pt lost spouse in September and feels like has gotten puney and less active . They used to walk, and hasn' t walked since. When leg starts to bother her standing still, it then it hurts to walk. Sometimes it does hurt quite a bit to walk. Tries to walk 3k steps a day. hx of oophrectomy and hysterectomy in late 30s, early 40s. in 2018 shelly had gallbladder removal. Treatment Goals Patient/Caregiver Goals be able to stand for longer, get back to walks, get back to using legs more. PT-OP-C Subjective Start: 01/24/24 18:13 Freq: Status: Active Protocol: Document 04/20/24 11:33 [facility] (Rec: 04/20/24 12:22 [facility] [id number]) OP-PT Subjective Patient Comments Patient Comments Pt reports had a bad week last week but pretty good today. Started to feel beter the day before yesterday. Stood in [facility] for 2 min at a time for a couple reps. PT-OP-D Balance Start: 01/24/24 18:13 Freq: Status: Active Protocol: Document 04/20/24 11:33 [facility] (Rec: 04/20/24 12:22 [facility] [id number]) Balance Tests Single Limb Standing Single Limb- Left >30 sec PT-OP-G Mobility & Gait Start: 01/24/24 18:13 Freq: Status: Active Protocol: Document 01/25/24 11:32 [facility] (Rec: 01/25/24 13:04 [facility] [id number]) OP Gait Assessment Comments Gait Comments dec stance time LLE w/add of LLE and dec push off LLE Stair Climbing Evaluation Comments Stair Climbing Comments recip w/rails bt dec control and strengthnoted on L up and down PT-OP-J Posture/Palpation/Skin Start: 01/24/24 18:13 Freq: Status: Active Protocol: Document 01/25/24 11:32 [facility] (Rec: 01/25/24 13:04 [facility] [id number]) Posture Evaluation Felisa Postural Classification System Lumbar Protective Mechanism Left AP 0 Lumbar Protective Mechanism Right AP 0 Lumbar Protective Mechanism Left PA 1 Lumbar Protective Mechanism Right PA 0 Comments Posture Comments inc kyphosis, falttened lordosis, L iliac crest higher , equal greater trochanter PT-OP-K Range of Motion Start: 01/24/24 18:13 Freq: Status: Active Protocol: Document 01/25/24 11:32 [facility] (Rec: 01/25/24 13:04 [facility] [id number]) Hip Goniometric Range of Motion Hip Right Active Flexion w/Knee Flexed 108 Straight Leg Raise 81 Left Active Flexion w/Knee Flexed 106 Straight Leg Raise 74 Comments tested w/opp knee bent up PT-OP-L Special Tests Start: 01/24/24 18:13 Freq: Status: Active Protocol: Document 01/25/24 11:32 [facility] (Rec: 01/25/24 13:04 [facility] [id number]) Special Tests Lumbar Spine Special Tests Slump Test Results L positive PT-OP-M Strength Start: 01/24/24 18:13 Freq: Status: Active Protocol: Document 04/20/24 11:33 [facility] (Rec: 04/20/24 12:22 [facility] [id number]) Hip Strength Hip Manual Muscle Testing Right Flexion (L2) 5 Normal Abduction 4 Good External Rotation 5 Normal Internal Rotation 5 Normal Left Flexion (L2) 4+ Good+ Abduction 3+ Fair+ External Rotation 4+ Good+ Internal Rotation 5 Normal Knee Strength Knee Manual Muscle Testing Right Flexion (S2) 5 Normal Extension (L3) 5 Normal Left Flexion (S2) 5 Normal Extension (L3) 5 Normal Ankle/Foot Strength Ankle and Foot Manual Muscle Testing Right Dorsiflexion (L4) 5 Normal Plantarflexion (S1) 5 Normal Left Dorsiflexion (L4) 5 Normal Plantarflexion (S1) 5 Normal Comments PF tested seated B PT-OP-T Assessment and Plan Start: 01/24/24 18:13 Freq: Status: Active Protocol: Document 04/20/24 11:33 [facility] (Rec: 04/20/24 12:22 [facility] [id number]) Physical Therapy Assessment Goals strength Short Term Goal (STG) Pt will be indep w/HEP STG Duration achieved advancing as able Can Cleaner Goal (LTG) Pt will score at least 3/5 on all planes LPm and at least 4+ /5 on all BLE MMT to show improved strength for greater ease w/typical daily activties . 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 04/20-able to do kitchen work, but no more than 2-5 min at [facility] STG Duration 04/24 Can Cleaner Goal (LTG) Pt will be able to start going for neighborhood walks w/o reporting inc pain in Lhip or LE 02/21-started walking indoors w/a group and is progressing inc distance. no pain in leg 03/28-during her good week, she went to [employer] and did well with walking. LTG Duration achieved w/walking most of the time-occ causes pain balance Short Term Goal (STG) Pt will be able to do SLS for at least 20 sec on LLE to show improved balance STG Duration achieved 02/21 Senior Care Goal (LTG) Pt will be able to do SLS for at least 30 sec on LLE to show improved balance 02/21-24 sec 03/28-29 sec LTG Duration achieved 04/20 Assessment Summary Assessment Pt has made progress w/PT and has good and bad days but overall pain in LLE is dec since starting PT. she has improved in strength but still lacks abd strength which is likely related today. Exercises given are to help focus on this. Physical Therapy Plan Discharge Physical Therapy Discharge Comments goals partially met
== END 2024-04-24 14:48 | disposition home or self-care (01) ==
LOC: PHYS 11:30
PROVIDERS: Family Provider Family Medicine; PCP Family Medicine; Referring Provider Family Medicine; Visit Provider Family Medicine
DX: G57.00 Lesion of sciatic nerve, unspecified lower limb (principal)
CPT/HCPCS: 97110; 97112; 97140; 97162; 97535

== ENCOUNTER → 2024-09-29 07:04 | Outpatient (CLI) | payer MEDICARE, BC, SELFPAY ==
[2022-08-05 17:54] VITALS: BMI 27.3
[2024-09-29 08:12] LABS: Add Manual Diff / Slide Review NO; Basophils Absolute Auto 100 /uL (0-100); Eosinophils Absolute Auto 200 /uL (0-450); Eosinophils Percent Auto 2.9 % (2-4); Hematocrit 32.8 % (36-46); Hemoglobin 11.1 g/dL (12.0-16.0); Lymphocytes Absolute Auto 1200 /uL (1100-4500); Lymphocytes Percent Auto 19.6 % (25-40); Mean Corpuscular HGB Conc 33.9 % (30-36); Mean Corpuscular Hemoglobin 35.4 PG (26-34); Mean Corpuscular Volume 104.5 fL (80-100); Monocytes Absolute Auto 500 /uL (0-900); Monocytes Percent Auto 8.4 % (3-14); Neutrophils Absolute Auto 4300 /uL (1500-7000); Neutrophils Percent Auto 68.1 % (50-75); Platelet Count 442 X10^3/uL (150-400); Red Blood Cell Count 3.14 X10^6/uL (4.0-5.2); Red Cell Distribution Width 25.3 % (11.6-14.8); White Blood Cell Count 6.3 X10^3/uL (4.5-11.0)
[2024-09-29 08:27] LABS: Anisocytosis 2+; Poikilocytosis 1+
[2024-09-29 08:45] LABS: Alanine Aminotransferase 13 IU/L (<35); Albumin 4.6 g/dL (3.5-5.0); Albumin Globulin Ratio 1.9 (1.0-2.8); Alkaline Phosphatase 65 U/L (38-126); Aspartate Aminotransferase 24 IU/L (14-36); BUN Creatinine Ratio 23.6 (6-22); Bilirubin Total 1.8 mg/dL (0.2-1.3); Blood Urea Nitrogen 21 mg/dL (7-17); Calcium 9.2 mg/dL (8.4-10.2); Carbon Dioxide 23 mmol/L (22-32); Chloride 104 mmol/L (98-107); Cholesterol 228 mg/dL (140-199); Estimated Glomerular Filt Rate > 60 mL/min (>60); Globulin 2.4 g/dL (1.7-4.1); Glucose 96 mg/dL (70-99); HDL Cholesterol 60 mg/dL (40-60); HEMOLYSIS < 15 (0-50); LDL Cholesterol Calculated 135 mg/dL (<100); Sodium 137 mmol/L (137-145); Triglycerides 167 mg/dL (35-150)
[2024-09-29 14:12] LABS: Ferritin 311 ng/mL (11-264)
[2024-09-29 14:28] LABS: Vitamin B12 631 pg/mL (239-931)
== END ==
PROVIDERS: Family Provider Family Medicine; PCP Family Medicine; Referring Provider Family Medicine; Visit Provider Family Medicine
DX: Z00.00 Encounter for general adult medical examination without abnormal findings (principal); I10 Essential (primary) hypertension; D50.9 Iron deficiency anemia, unspecified; E78.5 Hyperlipidemia, unspecified; E53.8 Deficiency of other specified B group vitamins
CPT/HCPCS: 36415; 80053; 80061; 82607; 82728; 85025

== ENCOUNTER → 2024-10-04 07:00 | Outpatient (CLI) | payer MEDICARE, BC, SELFPAY ==
[2022-08-05 17:54] VITALS: BMI 27.3
--- NOTE | 2024-10-04 07:01 | DI.US.S_ITS ---
PROCEDURE: US ABDOMEN LIMITED INDICATIONS: Elevated bilirubin/ferritin TECHNIQUE: Real-time scanning was performed of the abdominal and retroperitoneal organs, with image documentation. Technically difficult exam. COMPARISON: None. FINDINGS: Liver: Liver is normal in size and homogeneous in echotexture. Gallbladder: Absent. Biliary ducts: Intrahepatic bile ducts are non-dilated. Extrahepatic bile duct caliber measures 2 mm. Normal is 6-7 mm or less in diameter, or 10 mm or less post-cholecystectomy. Pancreas: Visualized portions of the pancreas are sonographically normal. Miscellaneous: No free abdominal fluid. IMPRESSION: No biliary ductal dilatation is identified. Post cholecystectomy. Consider CT abdomen pelvis with IV contrast for further evaluation. Dictated by: Silvio Wood M.D. on 10/04/2024 at 8:46 Approved by: Silvio Wood M.D. on 10/04/2024 at 8:49
== END ==
LOC: US 07:01
PROVIDERS: Family Provider Family Medicine; PCP Family Medicine; Referring Provider Family Medicine; Visit Provider Family Medicine
DX: R17 Unspecified jaundice (principal); R79.89 Other specified abnormal findings of blood chemistry; Z90.49 Acquired absence of other specified parts of digestive tract
CPT/HCPCS: 76705

== ENCOUNTER → 2024-10-05 07:36 | Outpatient (CLI) | payer MEDICARE, BC, SELFPAY ==
[2022-08-05 17:54] VITALS: BMI 27.3
== END ==
PROVIDERS: Family Provider Family Medicine; PCP Family Medicine; Referring Provider Family Medicine; Visit Provider Family Medicine
DX: D64.9 Anemia, unspecified (principal)
CPT/HCPCS: 82274

== ENCOUNTER → 2024-10-27 08:51 | Outpatient (CLI) | payer MEDICARE, BC, SELFPAY ==
[2022-08-05 17:54] VITALS: BMI 27.3
[2024-10-27 09:34] LABS: Add Manual Diff / Slide Review NO; Hematocrit 32.6 % (36-46); Hemoglobin 11.0 g/dL (12.0-16.0); Lymphocytes Absolute Auto 1300 /uL (1100-4500); Mean Corpuscular HGB Conc 33.8 % (30-36); Mean Corpuscular Hemoglobin 35.3 PG (26-34); Mean Corpuscular Volume 104.4 fL (80-100); Platelet Count 434 X10^3/uL (150-400)
[2024-10-27 09:43] LABS: Anisocytosis 2+; Poikilocytosis 2+
[2024-10-27 09:49] LABS: Alanine Aminotransferase 14 IU/L (<35); Albumin 4.5 g/dL (3.5-5.0); Albumin Globulin Ratio 1.8 (1.0-2.8); Alkaline Phosphatase 76 U/L (38-126); Blood Urea Nitrogen 18 mg/dL (7-17); Calcium 9.2 mg/dL (8.4-10.2); Carbon Dioxide 27 mmol/L (22-32); Chloride 104 mmol/L (98-107); Estimated Glomerular Filt Rate 59 mL/min (>60); Globulin 2.5 g/dL (1.7-4.1); Glucose 95 mg/dL (70-99); HEMOLYSIS < 15 (0-50); Potassium 4.8 mmol/L (3.4-5.1); Sodium 138 mmol/L (137-145); Total Protein 7.0 g/dL (6.3-8.2)
[2024-10-27 12:29] LABS: Folate 9.8 ng/mL (2.76-20.0); Vitamin B12 620 pg/mL (239-931)
== END ==
PROVIDERS: PCP Family Medicine; Referring Provider Family Medicine; Visit Provider Family Medicine
DX: I10 Essential (primary) hypertension (principal); N18.2 Chronic kidney disease, stage 2 (mild); N39.0 Urinary tract infection, site not specified; D64.9 Anemia, unspecified; R17 Unspecified jaundice
CPT/HCPCS: 36415; 80053; 82607; 82746; 85025

== ENCOUNTER 2024-11-09 21:41 | Emergency (ER) | payer MEDICARE, BC, SELFPAY ==
[2022-08-05 17:54] VITALS: BMI 27.3
[2024-11-09] VITALS (9 sets, daily range): BP systolic 193–228; BP diastolic 86–96; PULSE 65–89; RESP 14–23; O2SAT 97–100; BMI 27.8
--- NOTE | 2024-11-09 21:52 | EKG_ITS ---
[address] [address] Test Date: 2024-11-09 Pat Name: Ese Lopez Department: Room: Gender: Female [employer] Department Supervisor: FREDDY : [id number] Requested By: Order Number: [id number] Reading MD: Anupam Borjas Measurements Intervals [place] Rate: 78 P: 39 RI: 160 QRS: 3 QRSD: 76 T: 19 QT: 362 QTc: 412 Interpretive Statements Normal sinus rhythm Electronically Signed On 11-11-2024 9:43:14 PDT by Anupam Borjas
--- NOTE | 2024-11-09 21:56 | ED.GENADULT ---
HPI - General Adult General Chief complaint: Hypertension Stated complaint: High Blood Pressure Time Seen by Provider: 11/09/24 21:51 History of Present Illness HPI narrative: 89-year-old female patient, otherwise healthy, who was checking her blood pressure this evening and it stephanie from systolic 140-176 to 200 and she came to the ER. No symptoms. She feels fine. No chest pain, shortness of breath or headache. She is not on medicine for hypertension Related Data Home Medications ?Medication ?Instructions ?Recorded ?Confirmed d-mannose 500 mg capsule 500 mg PO DAILY 05/06/21 10/27/24 acetaminophen 500 mg tablet 500 mg PO Q6H PRN 12/24/22 10/27/24 (Tylenol Extra Strength) cholecalciferol (vitamin D3) 50 1,000 unit PO DAILY 09/27/24 10/27/24 mcg (2,000 unit) capsule triamcinolone acetonide [Nasacort] 1 spray intranasal DAILY PRN 09/27/24 10/27/24 Previous Rx's ?Medication ?Instructions ?Recorded estradiol 0.01% (0.1 mg/gram) 1 g vaginal 2XW #42.5 grams 04/14/24 vaginal cream trimethoprim 100 mg tablet 100 mg PO BEDTIME UTI prevention. 10/04/24 #90 tabs Allergies Allergy/AdvReac Type Severity Reaction Status Date / Time codeine AdvReac Mild NAUSEA Verified 11/09/24 21:53 Sulfa (Sulfonamide AdvReac Mild elevated Verified 11/09/24 21:53 Antibiotics) bilirubin Review of Systems Review of Systems ROS Unobtainable: All systems reviewed & are unremarkable except as noted in HPI and below Cardiovascular Cardiovascular: Denies chest pain and Denies dyspnea Respiratory Respiratory: Denies dyspnea Patient History Medical History Postmenopausal atrophic vaginitis Lower urinary tract symptoms Subclinical hyperthyroidism Hearing loss (04/2014) Arthritis Actinic keratosis Basal cell carcinoma Allergic rhinitis Recurrent UTI (urinary tract infection) Colon polyps Hyperlipidemia Surgical History Hx of bladder repair surgery History of cataract removal with insertion of prosthetic lens Status post cholecystectomy History of tonsillectomy History of bilateral salpingo-oophorectomy (BSO) Status post hysterectomy Family History Father Bladder cancer CAD (coronary artery disease) Gout Mother Dementia Stroke Hypertension Social History marital status: number of children: 4 household members: spouse occupational status: previously employed and other Smoking Status: Never smoker alcohol intake: never caffeine: Yes Type(s) of exercise: walking and weight lifting frequency: daily Exam Narrative Exam Narrative: General: Alert and conversant. No distress. Appears well nourished and well hydrated Craniofacial: No evidence of trauma. Nontender and no swelling. Eyes: PERRLA EOMI conjunctiva clear HEENT: . Oropharynx clear with no swelling, exudate or asymmetry of the pharynx. Nares clear. No sinus tenderness Neck: No tenderness or adenopathy. No meningismus. No JVD Lungs: Clear to auscultation with good air movement. No wheezing, rales or rhonchi. No respiratory distress Cardiac: Regular rate and rhythm with no appreciable murmur or gallop Abdomen: Soft, nontender with no distention or masses. Normal bowel sounds. No rebound or guarding Musculoskeletal: Exam of the extremities, axial spine and ribcage reveals no deformity, bony tenderness or swelling. Range of motion intact Neuro: Alert and oriented. Cranial nerves, motor, sensory and cerebellar all grossly intact. No focal deficit Skin: Warm and normal color. No rashes Psychological: Normal affect and interaction. No evidence of delusion or psychosis. Normal mood. Initial Vital Signs Initial Vital Signs: Vital Signs Pulse Rate 89 11/09/24 21:53 Respiratory Rate 18 11/09/24 21:53 Blood Pressure 214/86 H 11/09/24 21:53 Pulse Oximetry 98 11/09/24 21:53 Oxygen Delivery Method Room Air 11/09/24 21:53 Course Course Course Narrative: 23:00 Lab work and EKG reassuring. However blood pressure remains elevated with systolic of 228 at this point. Asymptomatic. Orders Ordered: ED Orders 11/09/24 21:55 Complete Blood Count AUTO DIFF Stat Comprehensive Metabolic Panel Stat Troponin & CK Cardiac Panel Stat 11/09/24 21:58 XR chest 1V Stat Discontinued Medications Lisinopril (Lisinopril 5 Mg Tablet) 5 mg PO NOW ONE Stop: 11/09/24 23:07 Last Admin: 11/09/24 23:50 Dose: 5 mg Metoprolol Tartrate (Metoprolol Tartrate 5 Mg/5 Ml Inj) 5 mg IV NOW ONE Stop: 11/09/24 23:07 Last Admin: 11/09/24 23:50 Dose: 5 mg Vital Signs Vital signs: Vital Signs - 8 hr 11/09/24 21:53 11/09/24 22:07 11/09/24 22:29 Pulse Rate 89 76 Respiratory Rate 18 16 Blood Pressure 214/86 H 198/86 H Pulse Oximetry 98 100 Oxygen Delivery Method Room Air 11/09/24 22:29 11/09/24 22:30 11/09/24 22:30 Pulse Rate 72 73 Respiratory Rate 19 23 Blood Pressure 193/88 H Pulse Oximetry 100 100 Oxygen Delivery Method 11/09/24 23:00 11/09/24 23:04 11/09/24 23:04 Pulse Rate 70 75 Respiratory Rate 23 Blood Pressure 228/96 H Pulse Oximetry 99 98 Oxygen Delivery Method 11/09/24 23:30 11/09/24 23:30 11/09/24 23:51 Pulse Rate 70 80 Respiratory Rate 14 18 Blood Pressure 205/89 H Pulse Oximetry 97 98 Oxygen Delivery Method 11/09/24 23:51 11/09/24 23:55 11/09/24 23:55 Pulse Rate 65 Respiratory Rate 14 Blood Pressure 223/88 H 208/88 H Pulse Oximetry 98 Oxygen Delivery Method 11/10/24 00:00 11/10/24 00:00 11/10/24 00:05 Pulse Rate 56 L 56 L Respiratory Rate 16 17 Blood Pressure 192/85 H Pulse Oximetry 98 98 Oxygen Delivery Method 11/10/24 00:05 11/10/24 00:10 11/10/24 00:10 Pulse Rate 57 L Respiratory Rate 13 Blood Pressure 177/74 H 166/72 H Pulse Oximetry 98 Oxygen Delivery Method 11/10/24 00:15 11/10/24 00:15 11/10/24 00:20 Pulse Rate 59 L Respiratory Rate 17 Blood Pressure 163/62 H 163/72 H Pulse Oximetry 98 Oxygen Delivery Method 11/10/24 00:20 11/10/24 00:25 11/10/24 00:25 Pulse Rate 62 59 L Respiratory Rate 18 15 Blood Pressure 160/73 H Pulse Oximetry 98 98 Oxygen Delivery Method 11/10/24 00:30 11/10/24 00:31 11/10/24 00:31 Pulse Rate 61 64 Respiratory Rate 19 21 Blood Pressure 193/82 H Pulse Oximetry 98 98 Oxygen Delivery Method 11/10/24 00:35 11/10/24 00:35 Pulse Rate 61 Respiratory Rate 19 Blood Pressure 177/77 H Pulse Oximetry 98 Oxygen Delivery Method Medical Decision Making Differential Diagnosis Condition is:: Improved Lab Data Lab results reviewed: Yes I reviewed the patient's lab results. Lab results narrative: Platelets 435. Mild anemia with a hemoglobin 11.0. CMP essentially unremarkable. 11/09/24 21:55 11/09/24 21:55 Labs: Lab Results 11/09/24 Range/Units 21:55 WBC 6.2 (4.5-11.0) X10^3/uL RBC 3.08 L (4.0-5.2) X10^6/uL Hgb 11.0 L (12.0-16.0) g/dL Hct 32.3 L (36-46) % MCV 104.8 H (80-100) fL MCH 35.7 H (26-34) PG MCHC 34.0 (30-36) % RDW 25.5 H (11.6-14.8) % Plt Count 435 H (150-400) X10^3/uL Neut % (Auto) 46.5 L (50-75) % Lymph % (Auto) 36.8 (25-40) % Coffey % (Auto) 10.0 (3-14) % Eos % (Auto) 3.9 (2-4) % Baso % (Auto) 2.8 H (0-2) % Neut # (Auto) 2900 (2017-6223) /uL Lymph # (Auto) 2300 (7690-4547) /uL Coffey # (Auto) 600 (0-900) /uL Eos # (Auto) 200 (0-450) /uL Baso # (Auto) 200 H (0-100) /uL Platelet Estimate Increased on smear RBC Morphology See below Poikilocytosis Not Reportable Anisocytosis 3+ H Target Cells 1+ H Sodium 138 (137-145) mmol/L Potassium 4.2 (3.4-5.1) mmol/L Chloride 106 (98-107) mmol/L Carbon Dioxide 23 (22-32) mmol/L BUN 21 H (7-17) mg/dL Creatinine 1.09 H (0.52-1.04) mg/dL Estimated GFR 49 L (>60) mL/min BUN/Creatinine Ratio 19.3 (6-22) Glucose 107 H (70-99) mg/dL Calcium 9.4 (8.4-10.2) mg/dL Total Bilirubin 1.0 (0.2-1.3) mg/dL AST 23 (14-36) IU/L ALT 13 (<35) IU/L Alkaline Phosphatase 84 (38-126) U/L Total Creatine Kinase 58 (30-135) U/L Troponin I < 0.012 (0.01-0.034) ng/mL Total Protein 7.5 (6.3-8.2) g/dL Albumin 4.7 (3.5-5.0) g/dL Globulin 2.8 (1.7-4.1) g/dL Albumin/Globulin Ratio 1.7 (1.0-2.8) ECG Data Attestation: I personally reviewed and interpreted this ECG as follows: (Sinus rhythm. Normal axis and intervals. No ischemic changes. Rate 78) MDM Narrative Medical decision making narrative: Asymptomatic severe systolic hypertension. No previous hypertension. Lab work and EKG reassuring. Patient was started on lisinopril and given a small dose of metoprolol in the ER to get her pressure down below 200. Continued without symptoms. Patient will continue on lisinopril, 5 mg daily, monitor blood pressure measurements and follow up closely with her provider within 5 days. Return to the ER if worse Discharge Plan Departure Patient Disposition: Home Clinical Impression: Elevated blood pressure reading Instructions: DI for High Blood Pressure Activity Restrictions/Additional Instructions: Asymptomatic severe isolated systolic hypertension/high blood pressure. Plan: We will start lisinopril, 5 mg daily. Continue to monitor blood pressures and follow up with your doctor within the next 5 days. Return to the ER if worse Prescriptions: No Action cholecalciferol (vitamin D3) 50 mcg (2,000 unit) capsule 1,000 unit PO DAILY trimethoprim 100 mg tablet 100 mg PO BEDTIME Qty: 90 0RF d-mannose 500 mg capsule 500 mg PO DAILY acetaminophen [Tylenol Extra Strength] 500 mg tablet 500 mg PO Q6H PRN triamcinolone acetonide [Nasacort] 1 spray intranasal DAILY PRN estradiol 0.01 % (0.1 mg/gram) cream 1 g vaginal 2XW Qty: 42.5 6RF Rx Instructions: Apply hormonal cream once at bedtime for 10 days. Then apply hormonal cream once at bedtime twice a week for lifetime. Referrals: Sharon Xiong DO [Primary Care Provider, Family Practice] Stand Alone Forms: Patient Portal/API
--- NOTE | 2024-11-09 21:58 | DI.RAD.S_ITS ---
PROCEDURE: XR CHEST 1V INDICATIONS: chest pain TECHNIQUE: One view of the chest was acquired. COMPARISON: [facility], CR, XR CHEST 1V, 08/05/2022, 15:10. FINDINGS: Surgical changes and devices: None. Lungs and pleura: Lungs are clear. No pleural effusions or pneumothorax. Mediastinum: Mediastinal contours appear normal. Heart size is normal. Bones and chest wall: No suspicious bony lesions. Overlying soft tissues appear unremarkable. IMPRESSION: No acute cardiopulmonary abnormality is seen. Dictated by: Akshat Coy M.D. on 11/09/2024 at 22:28 Approved by: Akshat Coy M.D. on 11/09/2024 at 22:28
[2024-11-09 22:17] LABS: Hematocrit 32.3 % (36-46); Hemoglobin 11.0 g/dL (12.0-16.0); Lymphocytes Absolute Auto 2300 /uL (1100-4500); Mean Corpuscular HGB Conc 34.0 % (30-36); Mean Corpuscular Hemoglobin 35.7 PG (26-34); Mean Corpuscular Volume 104.8 fL (80-100); Platelet Count 435 X10^3/uL (150-400)
[2024-11-09 22:20] LABS: Add Manual Diff / Slide Review SLIDE REVIEW
[2024-11-09 22:25] LABS: Alanine Aminotransferase 13 IU/L (<35); Albumin 4.7 g/dL (3.5-5.0); Albumin Globulin Ratio 1.7 (1.0-2.8); Alkaline Phosphatase 84 U/L (38-126); Blood Urea Nitrogen 21 mg/dL (7-17); Calcium 9.4 mg/dL (8.4-10.2); Carbon Dioxide 23 mmol/L (22-32); Chloride 106 mmol/L (98-107); Creatine Kinase 58 U/L (30-135); Estimated Glomerular Filt Rate 49 mL/min (>60); Globulin 2.8 g/dL (1.7-4.1); Glucose 107 mg/dL (70-99); HEMOLYSIS < 15 (0-50); Potassium 4.2 mmol/L (3.4-5.1); Sodium 138 mmol/L (137-145); Total Protein 7.5 g/dL (6.3-8.2)
[2024-11-09 22:37] LABS: Troponin I < 0.012 ng/mL (0.01-0.034)
[2024-11-09 22:48] LABS: Anisocytosis 3+; Target Cells 1+
[2024-11-09] MEDS: METOPROLOL TARTRATE 5 MG/5 ML INJ IV (23:50)
[2024-11-10] VITALS (9 sets, daily range): BP systolic 160–193; BP diastolic 62–85; PULSE 56–64; RESP 13–21; O2SAT 98
== END 2024-11-10 00:47 | disposition home or self-care (01) ==
PROVIDERS: Emergency Provider Emergency Medicine; PCP Family Medicine
DX: I10 Essential (primary) hypertension (principal)
CPT/HCPCS: 36415; 71045; 80053; 82550; 84484; 85025; 93005; 96374; 99284

== ENCOUNTER → 2025-01-03 08:11 | Outpatient (CLI) | payer MEDICARE, BC, SELFPAY ==
[2024-11-17 08:19] VITALS: BMI 27.3
[2025-01-03 09:09] LABS: Add Manual Diff / Slide Review NO; Hematocrit 31.8 % (36-46); Hemoglobin 10.6 g/dL (12.0-16.0); Lymphocytes Absolute Auto 1200 /uL (1100-4500); Mean Corpuscular HGB Conc 33.3 % (30-36); Mean Corpuscular Hemoglobin 34.4 PG (26-34); Mean Corpuscular Volume 103.6 fL (80-100); Platelet Count 422 X10^3/uL (150-400)
[2025-01-03 09:31] LABS: Anisocytosis 2+; Macrocytosis 1+
== END ==
PROVIDERS: PCP Family Medicine; Referring Provider Family Medicine; Visit Provider Family Medicine
DX: D64.9 Anemia, unspecified (principal)
CPT/HCPCS: 36415; 85025

== ENCOUNTER → 2025-02-05 11:00 | Outpatient (CLI) | payer MEDICARE, BC, SELFPAY ==
[2024-11-17 08:19] VITALS: BMI 27.3
--- NOTE | 2025-02-05 11:02 | DI.RAD.S_ITS ---
PROCEDURE: XR KNEE LT 3V INDICATIONS: pain, impaired gait, swelling TECHNIQUE: 3 views of the knee were acquired. COMPARISON: None. FINDINGS: Bones: No fractures or dislocations. Mild tricompartmental osteoarthritis is seen. No patellar subluxation. No suspicious bony lesions. Soft tissues: No joint effusion. No suspicious soft tissue calcifications. IMPRESSION: No acute left knee fracture or dislocation. Up mild tricompartmental osteoarthritis. No significant joint effusion. Dictated by: Dominick Mccain M.D. on 02/05/2025 at 13:51 Approved by: Dominick Mccain M.D. on 02/05/2025 at 13:52
== END ==
PROVIDERS: PCP Family Medicine; Referring Provider Family Medicine; Visit Provider Family Medicine
DX: M17.12 Unilateral primary osteoarthritis, left knee (principal); M25.562 Pain in left knee; M25.469 Effusion, unspecified knee; R26.9 Unspecified abnormalities of gait and mobility
CPT/HCPCS: 73562